=== PATIENT | male | born 1945 | race Caucasian/White ===

== ENCOUNTER → 2016-11-14 | Outpatient (CLI) | payer MEDICARE ==
--- NOTE | 2016-11-14 09:30 | CT ---
EXAMINATION TYPE: CT abdomen pelvis wo/w con DATE OF EXAM: 11/14/2016 9:15 AM COMPARISON: NONE HISTORY: Patient has no complaints at time of study. Follow up study for abnormal colonoscopy. CT DLP: 2081 mGycm, Automated Exposure Control for Dose Reduction was Utilized. CONTRAST: CT scan of the abdomen and pelvis is performed with oral and without and with IV Contrast, patient in jected with 80 mL of Visipaque 320. FINDINGS: LUNG BASES: There is mild cardiomegaly. There is pericardial calcification anteriorly and inferiorly. Consider product of pericarditis. There is small left pleural effusion or fluid collection. There is left basilar linear scarring or atelectasis. There is more focal triangular shaped atelectasis or Li mited consolidation in the left lung base. Right lung is clear. LIVER/GB: Dependent calcified stones are seen in gallbladder neck. PANCREAS: No significant abnormality is seen. SPLEEN: There is 1.3 cm splenule in the posterior splenic hilum ADRENALS: No significant abnormality is seen. KIDNEYS: There is exophytic 1.1 cm simple appearing cyst laterally mid pole level left kidney. There is mild perinephric fat stranding bilaterally which is nonspecific finding. There is symmetric cortic al medullary uptake and excretion from both kidneys without evidence of hydronephrosis bilaterally. BOWEL: Oral contrast reaches level of the proximal transverse colon. There is no suspicious small or large bowel dilatation. There is wondering cecum into the right upper quadrant with terminal ileum se en best on coronal image 25 series 9. Appendix is felt surgically absent with sutures from right late ral margin of cecum. Some prominence of the cecum is seen. There is virtually no right colon With hig h positioned cecum present. There is focal moderate concentric wall thickening in the proximal transv erse colon which likely correlates with level of patient's recent abnormal colonoscopy. Remainder of colon shows mild to moderate fecal retention without suspicious dilatation. PROSTATE/SEMINAL VESICLES: Some scattered pelvic phleboliths are present. Prostate gland is upper nj its of normal in size. LYMPH NODES: No greater than 1cm abdominal or pelvic lymph nodes are appreciated. OSSEOUS STRUCTURES: Osseous structures are somewhat demineralized. There is disc space narrowing L4-L 5 level. Multilevel spurring in the thoracic spine is noted. OTHER: Fairly severe calcified plaque of the aorta and branch vessels. IMPRESSION: Suspicious short segment wall thickening or apple core type lesion proximal transverse co shilpa likely corresponds to area of recent abnormal colonoscopy. No CT evidence for metastatic malignan cy.
== END | disposition home or self-care (01) ==
LOC: RADCTMAIN 06:40
PROVIDERS: ATTEND Internal Medicine Gastroenterology
DX: R19.00 Intra-abdominal and pelvic swelling, mass and lump, unspecified site (principal)
CPT/HCPCS: 82565; 84520; 74178; 36415; Q9967

== ENCOUNTER → 2016-11-29 | Outpatient (CLI) | payer MEDICARE ==
--- NOTE | 2016-11-29 08:39 | CT ---
EXAMINATION TYPE: CT chest w con DATE OF EXAM: 11/29/2016 8:30 AM COMPARISON: NONE HISTORY: Recent diagnosis of rectal CA CT DLP: 793 mGycm Automated exposure control for dose reduction was used. CONTRAST: CT scan of the chest is performed with IV Contrast, patient injected with 100 mL of Visipaque 320. FINDINGS: LUNGS: The lungs are grossly clear, there is no concerning parenchymal mass or nodule identified. The re is a loculated left-sided pleural effusion with AP dimension of 2.7 cm and craniocaudal measuremen t of 11.8 cm. Mild pleural-based calcification is noted. Left basilar linear scar atelectasis is iden tified. The right lung is clear. The tracheobronchial tree is patent. MEDIASTINUM: There are no greater than 1 cm hilar or mediastinal lymph nodes. No pericardial effusi on is seen. Thoracic aorta is of normal caliber. The heart is not enlarged. UPPER ABDOMEN: There is evidence of cholelithiasis. OTHER: No additional significant abnormality is seen. IMPRESSION: 1. Loculated left-sided pleural effusion with left basilar atelectasis or parenchymal scar. 2. Cholelithiasis.
== END | disposition home or self-care (01) ==
LOC: RADCTMAIN 07:37
PROVIDERS: ATTEND Radiology Radiation Oncology
DX: J90 Pleural effusion, not elsewhere classified (principal); C20 Malignant neoplasm of rectum
CPT/HCPCS: 82565; 84520; 71260; 36415; Q9967

== ENCOUNTER 2017-01-07 23:00 | Inpatient (IN) | payer MEDICARE ==
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
[2017-01-08] MEDS ORDERED: HYDROmorphone 1 MG/ML 1 ML SYRINGE IVP STA (00:14)
[2017-01-08] MEDS ORDERED: DILTIAZEM 125 MG in SODIUM CHLORIDE 0.9% 100 ML IV ONE (00:26)
[2017-01-08 01:00] LABS: Anisocytosis Slight; Basophils % (A) 0 %; CH 33.3; CHCM 35.5; Eosinophils # (A) 0.1 k/uL (0-0.7); Eosinophils % (A) 3 %; HCT 38.9 % (39.0-53.0); HGB 13.7 gm/dL (13.0-17.5); Luc # (Auto) 0.09; Luc % (Auto) 2; Lymphocytes # (A) 0.2 k/uL (1.0-4.8); Lymphocytes % (A) 4 %; MCH 33.1 pg (25.0-35.0); MCHC 35.2 g/dL (31.0-37.0); Macrocytosis Slight; Mean Platelet Volume 8.1; Monocytes # (A) 0.5 k/uL (0-1.0); Monocytes % (A) 11 %; Neutrophils # (A) 3.4 k/uL (1.3-7.7); Neutrophils % (A) 80 %; RBC 4.14 m/uL (4.30-5.90); RDW 17.3 % (11.5-15.5); WBC 4.2 k/uL (3.8-10.6); WBC (Perox) 4.21
[2017-01-08 01:08] LABS: Total Protein 5.9 g/dL (6.3-8.2)
--- NOTE | 2017-01-08 01:28 | XR ---
EXAM: XR Chest, 2 Views CLINICAL HISTORY: Reason: dysrhythmia Hx. of afib, DM, Htn. Pt. c/o nausea and vomiting. dehydration. TECHNIQUE: Frontal and lateral views of the chest. COMPARISON: 11/29/[address] FINDINGS: Lungs: Unremarkable. No consolidation. Pleural space: Opacity over the left mid to lower hemithorax. Correlates with loculated pleural effusion seen on the prior chest CT. Left apical opacity also stable. No pneumothorax. Heart: Unremarkable. No cardiomegaly. Mediastinum: Unremarkable. Bones/joints: Unremarkable. IMPRESSION: No significant interval change of left-sided opacity correlating with loculated left pleural effusion and chronic changes. No new opacity.
[2017-01-08 01:32] LABS: Calcium 8.1 mg/dL (8.4-10.2); Magnesium 1.9 mg/dL (1.6-2.3); Potassium 4.8 mmol/L (3.5-5.1); Total Bilirubin 1.1 mg/dL (0.2-1.3)
[2017-01-08 01:36] LABS: Troponin I 0.014 ng/mL (0.000-0.034)
[2017-01-08 01:42] LABS: Creatine Kinase MB 3.3 ng/mL (0.0-2.4)
[2017-01-08 02:18] LABS: INR 4.9 (<1.1); Prothrombin Time 48.9 sec (9.0-12.0)
[2017-01-08 02:20] LABS: Partial Thromboplastin Time 80.1 sec (22.0-30.0)
[2017-01-08] MEDS ORDERED: NITROGLYCERIN SL TABS 0.4 MG TAB SUBLINGUAL PRN (02:41)
[2017-01-08] MEDS ORDERED: Acetaminophen-Codeine 300-30mg TAB PO PRN (04:17)
[2017-01-08 04:59] LABS: Glucose,Whole Blood 313 mg/dL (75-99)
[2017-01-08 06:33] LABS: Glucose,Whole Blood 348 mg/dL (75-99)
[2017-01-08 06:50] LABS: Troponin I 0.016 ng/mL (0.000-0.034)
[2017-01-08 07:07] LABS: Creatine Kinase MB 2.8 ng/mL (0.0-2.4)
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
--- NOTE | 2017-01-08 08:51 | P.PN ---
Progress Note - Text Impression Atrial fibrillation with RVR Rectal cancer with bleeding on treatment right now, hemoglobin 13.7, prothrombin time elevated Past history of paroxysmal atrial fibrillation, Dr. Fajardo follows him for this Suggest Rate control without anticoagulation, stop aspirin Start diltiazem CD 120 mg by mouth daily and tomorrow IV diltiazem can be discontinued if his rates are controlled. If he becomes bradycardic stop IV diltiazem but continue oral diltiazem and continue telemetry monitoring The see full consultation separately
[2017-01-08] MEDS ORDERED: SODIUM CHLORIDE 0.9% 500 ML IV ONE (09:04)
[2017-01-08] MEDS ORDERED: INSULIN LISPRO (humaLOG) 300 UNIT/3 ML VIAL SQ ONE (09:05)
[2017-01-08] MEDS: INSULIN LISPRO (humaLOG) 300 UNIT/3 ML VIAL SQ SCH ×4 (09:25→21:32)
[2017-01-08 09:35] LABS: Anisocytosis Slight; CH 32.9; CHCM 33.9; HCT 35.5 % (39.0-53.0); HDW 2.45; MCH 32.9 pg (25.0-35.0); MCHC 33.8 g/dL (31.0-37.0); MCV 97.4 fL (80.0-100.0); Macrocytosis Slight; Mean Platelet Volume 7.9; RBC 3.64 m/uL (4.30-5.90); RDW 17.5 % (11.5-15.5); WBC 3.7 k/uL (3.8-10.6)
[2017-01-08] MEDS: HYDROmorphone 1 MG/ML 1 ML SYRINGE IVP PRN ×2 (10:47→16:37)
[2017-01-08] MEDS: DILTIAZEM CD 120 MG CAP.ER.24H PO SCH (10:48)
[2017-01-08 11:39] LABS: Glucose,Whole Blood 418 mg/dL (75-99)
--- NOTE | 2017-01-08 11:42 | CONS ---
DATE OF CONSULTATION: Mr. Cotton is a 71 -year-old patient of Dr. Fajardo who presented with rectal and anal pain and bleeding. He did not have any chest discomfort, palpitations, dizziness, lightheadedness or shortness of breath. He was found to be in atrial fibrillation ( ). He has a history of known atrial fibrillation, paroxysmal in nature. His INR was also 4.9. REVIEW OF SYSTEMS: No fever, chills, or rigors. No cough or expectoration. No nausea or vomiting, diarrhea. No hematuria or dysuria. No strokes or seizures. Past medical history of paroxysmal atrial fibrillation, rectal cancer, diabetes. History of dyslipidemia, hypertension, osteoarthritis. SOCIAL HISTORY: Occasional smoker. Medication list was reviewed and is documented in the chart. Also includes: 1. Simvastatin. 2. Lexapro. 3. Digoxin. 4. Warfarin. ALLERGIES: No known drug allergies. On examination, his blood pressure 132/58 mmHg, heart rate is in the 80s and 90s, head and neck examination is normal. Heart sounds are irregular. LUNGS: Clear to auscultation. EXTREMITIES: Warm. No edema. He has an amputation of the left forearm. Labs were reviewed and are documented in the chart. IMPRESSION: 1. Atrial fibrillation with rapid ventricular response paroxysmal. 2. Rectal cancer. 3. Supratherapeutic INR. 4. Renal failure, acute on chronic. 5. Uncontrolled type 2 diabetes. 6. History of cerebrovascular accident. SUGGEST: Continue anticoagulation. Maintain INR between 2 and 3, rate control atrial fibrillation. Please see separate dictation for impression and plan.
[2017-01-08] MEDS: SODIUM CHLORIDE 0.9% 1,000 ML IV SCH ×2 (11:51→17:56)
[2017-01-08] MEDS ORDERED: INSULIN NPH 300 UNIT/3 ML VIAL SQ SCH (12:30)
[2017-01-08] MEDS: WITCH HAZEL 1 EACH MED..PAD TOPICAL SCH ×3 (12:31→21:11)
[2017-01-08 12:56] LABS: Digoxin 0.5 ng/mL
[2017-01-08 13:03] LABS: % Iron Saturation 14.3 % (20-50); Creatine Kinase 176 U/L (55-170)
[2017-01-08 13:17] LABS: Troponin I <0.012 ng/mL (0.000-0.034)
[2017-01-08] MEDS: DILTIAZEM 125 MG in SODIUM CHLORIDE 0.9% 100 ML IV SCH (14:11)
[2017-01-08 16:34] LABS: Glucose,Whole Blood 238 mg/dL (75-99)
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
[2017-01-08] MEDS: INSULIN GLARGINE 100 UNIT/ML 10 ML VIAL SQ SCH (21:09)
[2017-01-08] MEDS: HYDROcodone/APAP 7.5-325MG 1 EACH TAB PO PRN (21:09)
[2017-01-08] MEDS: ATORVASTATIN 20 MG TAB PO SCH (21:09)
[2017-01-08] MEDS: LIDOCAINE 2% GEL 30 ML TUBE TOPICAL PRN (21:11)
[2017-01-08 21:43] LABS: Glucose,Whole Blood 247 mg/dL (75-99)
[2017-01-09 02:08] LABS: Glucose,Whole Blood 192 mg/dL (75-99)
[2017-01-09] MEDS: HYDROmorphone 1 MG/ML 1 ML SYRINGE IVP PRN ×4 (02:16→23:10)
[2017-01-09] MEDS: SODIUM CHLORIDE 0.9% 1,000 ML IV SCH ×3 (02:17→21:33)
[2017-01-09 05:46] LABS: Glucose,Whole Blood 287 mg/dL (75-99)
[2017-01-09 06:18] LABS: Anisocytosis Slight; CH 32.5; HCT 37.3 % (39.0-53.0); HDW 2.31; HGB 12.2 gm/dL (13.0-17.5); MCH 32.2 pg (25.0-35.0); MCHC 32.6 g/dL (31.0-37.0); MCV 98.7 fL (80.0-100.0); Macrocytosis Slight; Mean Platelet Volume 7.3; RBC 3.78 m/uL (4.30-5.90); RDW 17.4 % (11.5-15.5); WBC 3.8 k/uL (3.8-10.6)
[2017-01-09 06:22] LABS: Blood Urea Nitrogen 36 mg/dL (9-20); Calcium 8.3 mg/dL (8.4-10.2); Carbon Dioxide 20 mmol/L (22-30); Cholesterol 93 mg/dL (<200); Glucose 244 mg/dL (74-99); HDL Cholesterol 46 mg/dL (40-60); Non-African American GFR(MDRD) 55 (>60 ml/min/1.73 sqM); Potassium 4.9 mmol/L (3.5-5.1); Sodium 135 mmol/L (137-145); Triglycerides 87 mg/dL (<150)
[2017-01-09] MEDS: INSULIN LISPRO (humaLOG) 300 UNIT/3 ML VIAL SQ SCH ×4 (06:35→21:34)
[2017-01-09 06:39] LABS: Anion Gap 10 mmol/L; Chloride 105 mmol/L (98-107)
[2017-01-09 07:23] LABS: INR >10.0 (<1.1); Prothrombin Time >130.0 sec (9.0-12.0)
[2017-01-09] MEDS ORDERED: PHYTONADIONE ORAL 5 MG/5 ML ORAL.SYRG PO STA (07:45)
[2017-01-09] MEDS: DIGOXIN 125 MCG TAB PO SCH (08:52)
[2017-01-09] MEDS: WITCH HAZEL 1 EACH MED..PAD TOPICAL SCH ×4 (08:52→21:34)
[2017-01-09] MEDS: DILTIAZEM CD 120 MG CAP.ER.24H PO SCH (08:52)
[2017-01-09] MEDS ORDERED: ASPIRIN 325 MG TAB PO SCH (09:00)
[2017-01-09] MEDS: HYDROcodone/APAP 7.5-325MG 1 EACH TAB PO PRN ×2 (11:31→16:03)
[2017-01-09 11:54] LABS: Glucose,Whole Blood 288 mg/dL (75-99)
[2017-01-09] MEDS: DILTIAZEM 125 MG in SODIUM CHLORIDE 0.9% 100 ML IV SCH (11:58)
--- NOTE | 2017-01-09 12:48 | P.PN ---
Subjective Principal diagnosis: A. fib with RVR, rectal bleed, rectal cancer post radiation, CVA, diabetes, hypertension, hyperlipidemia, osteoarthritis 71-year-old male one of Dr. Kris John's patient with past medical history of rectal cancer A. 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 Patient has been treated with radiation oncology for rectal cancer with radiation therapy had 3 sessions so far the last one was a day early. Patient also see oncology for his colorectal's cancer and has been well managed with them. No recent history of bleeding. Surprisingly had mild coagulopathy on admission with INR of 4.9 has been on warfarin for A. fib with RVR. Also pulse rate was quite bit high started on Cardizem drip and had to stop it shortly patient was seen cardiology and medication were converted to oral meds. 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 Patient was seen cardiology and oncology at this point and still well managed and controlled medically. Objective - Vital Signs Vital signs: Vital Signs Temp 98 F 01/09/17 08:00 Pulse 110 H 01/09/17 11:51 Resp 18 01/09/17 11:51 BP 120/88 01/09/17 11:51 Pulse Ox 98 01/09/17 11:51 Intake & Output 01/08/17 01/09/17 01/09/17 18:59 06:59 18:59 Intake Total 1620 590 180 Output Total 600 Balance 1020 590 180 Weight 97.2 kg Intake: IV 540 390 Diltiazem 125 mg In 40 15 Sodium Chloride 0.9% 100 ml @ 5 MG/HR 5 mls/hr IV .Q24H [facility] Rx#:[id number] Sodium Chloride 0.9% 1, 375 000 ml @ 125 mls/hr IV . Q8H [facility] Rx#:[id number] Sodium Chloride 0.9% 500 500 ml @ 999 mls/hr IV .Q31M [facility] Rx#:[id number] Intake, IV Titration 600 Amount Sodium Chloride 0.9% 1, 600 000 ml @ 125 mls/hr IV . Q8H [facility] Rx#:[id number] Oral 480 200 180 Output: Urine 600 Other: Voiding Method Toilet Toilet Toilet # Voids 4 2 # Bowel Movements 1 3 1 - Constitutional General appearance: Present: cooperative, no acute distress. Absent: average body habitus, disheveled, mild distress, morbidly obese, obese, severe distress , thin - EENT Eyes: Present: normal appearance. Absent: abnormal pupil, anicteric sclerae, disc margins sharp, edentulous, EOMI, PERRLA, fundus normal, photophobia, dentition normal, poor dentition, ptosis, scleral icterus ENT: Present: normal oropharynx. Absent: hard of hearing, hearing grossly normal, NA/AT, other, pharyngeal erythema, thrush, tonsillar exudates, tonsillar swelling Ears: bilateral: normal - Neck Neck: Present: normal ROM Carotids: bilateral: upstroke normal Thyroid: bilateral: normal size - Respiratory Respiratory: bilateral: CTA, diminished - Cardiovascular Rhythm: regular Heart sounds: normal: S1, S2 Abnormal Heart Sounds: Present: systolic murmur - Gastrointestinal General gastrointestinal: Present: decreased bowel sounds, normal bowel sounds, soft. 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 Integumentary: Present: pale. Absent: calor, cellulitis, cyanotic, decreased turgor, flushed, jaundiced, normal, normal turgor, rash, ulcer - Neurologic Neurologic: Present: CNII-XII intact. Absent: focal deficits - Musculoskeletal Musculoskeletal: Present: gait normal, generalized weakness, strength equal bilaterally. Absent: right sided weakness, left sided weakness - Psychiatric Psychiatric: Present: A&O x's 3, appropriate affect. Absent: intact judgment & insight - Labs CBC & Chem 7: 01/09/17 05:32 01/09/17 05:32 Labs: Abnormal Lab Results - Last 24 Hours (Table) 01/08/17 01/08/17 01/08/17 Range/Units 11:58 11:58 16:30 RBC (4.30-5.90) m/uL Hgb (13.0-17.5) gm/dL Hct (39.0-53.0) % RDW (11.5-15.5) % PT (9.0-12.0) sec INR (<1.1) Sodium (137-145) mmol/L Carbon Dioxide (22-30) mmol/L BUN (9-20) mg/dL Creatinine (0.66-1.25) mg/dL Glucose (74-99) mg/dL POC Glucose (mg/dL) 238 H (75-99) mg/dL Calcium (8.4-10.2) mg/dL Iron 33 L (49-181) ug/dL TIBC 231 L (261-462) ug/dL % Saturation 14.3 L (20-50) % Total Creatine Kinase 176 H (55-170) U/L CK-MB (CK-2) 3.0 H* (0.0-2.4) ng/mL 01/08/17 01/09/17 01/09/17 Range/Units 21:31 02:07 05:32 RBC (4.30-5.90) m/uL Hgb (13.0-17.5) gm/dL Hct (39.0-53.0) % RDW (11.5-15.5) % PT (9.0-12.0) sec INR (<1.1) Sodium 135 L (137-145) mmol/L Carbon Dioxide 20 L (22-30) mmol/L BUN 36 H (9-20) mg/dL Creatinine 1.30 H (0.66-1.25) mg/dL Glucose 244 H (74-99) mg/dL POC Glucose (mg/dL) 247 H 192 H (75-99) mg/dL Calcium 8.3 L (8.4-10.2) mg/dL Iron (49-181) ug/dL TIBC (261-462) ug/dL % Saturation (20-50) % Total Creatine Kinase (55-170) U/L CK-MB (CK-2) (0.0-2.4) ng/mL 01/09/17 01/09/17 01/09/17 Range/Units 05:32 05:32 05:45 RBC 3.78 L (4.30-5.90) m/uL Hgb 12.2 L (13.0-17.5) gm/dL Hct 37.3 L (39.0-53.0) % RDW 17.4 H (11.5-15.5) % PT >130.0 H (9.0-12.0) sec INR >10.0 H* (<1.1) Sodium (137-145) mmol/L Carbon Dioxide (22-30) mmol/L BUN (9-20) mg/dL Creatinine (0.66-1.25) mg/dL Glucose (74-99) mg/dL POC Glucose (mg/dL) 287 H (75-99) mg/dL Calcium (8.4-10.2) mg/dL Iron (49-181) ug/dL TIBC (261-462) ug/dL % Saturation (20-50) % Total Creatine Kinase (55-170) U/L CK-MB (CK-2) (0.0-2.4) ng/mL 01/09/17 Range/Units 11:53 RBC (4.30-5.90) m/uL Hgb (13.0-17.5) gm/dL Hct (39.0-53.0) % RDW (11.5-15.5) % PT (9.0-12.0) sec INR (<1.1) Sodium (137-145) mmol/L Carbon Dioxide (22-30) mmol/L BUN (9-20) mg/dL Creatinine (0.66-1.25) mg/dL Glucose (74-99) mg/dL POC Glucose (mg/dL) 288 H (75-99) mg/dL Calcium (8.4-10.2) mg/dL Iron (49-181) ug/dL TIBC (261-462) ug/dL % Saturation (20-50) % Total Creatine Kinase (55-170) U/L CK-MB (CK-2) (0.0-2.4) ng/mL Microbiology - Last 24 Hours (Table) 01/08/17 11:45 Stool Culture - Preliminary Stool Assessment and Plan Plan: 1 rectal bleed: From rectal carcinoma stage II with radiation and this is most likely not episode of radiation proctitis, continue hydrocortisone cream and consult general surgery also might need to consult GI. 2 acute blood loss anemia: Hemoglobin has dropped only 1 g so far no need for blood transfusion at this point. 3 coagulopathy: His INR is up to 10.0 we will do vitamin K today continue to watch for any further bleed PT/INR be done daily. 4 A. fib with RVR: His off Cardizem drip seeing cardiology is on oral digoxin 125 g daily along with Cardizem 120 mg daily with pulse rate has been well controlled. 5 type 2 diabetes on insulin: Patient has been on Lantus 20 units daily along with Accu-Chek with sliding scales coverage. 6 history of CVA: Patient had very slight residual only at this point still on secondary prevention. 7 hyperlipidemia: Has been on atorvastatin 20 mg daily with good result so far. GI prophylaxis: Patient will be on pantoprazole IV. DVT prophylaxis: Venodyne boots and knee-high YAZAN hose at this point patient still on anticoagulation. CODE STATUS: Full code.
--- NOTE | 2017-01-09 13:18 | CONS ---
DATE OF CONSULTATION: 01/09/2017 REASON FOR CONSULTATION: Acute lower gastrointestinal bleed. HISTORY OF PRESENT ILLNESS: The patient is a 71-year-old pleasant, white male who was admitted the hospital with rectal bleeding. The patient was just diagnosed with rectal adenocarcinoma in November 15, 2016 and subsequently undergoing chemoradiation therapy, neoadjuvant chemoradiation therapy. He finished 90 days of radiation therapy and he is on second cycle of chemotherapy. Within one week of starting the radiation therapy, he started having rectal bleeding with bright red blood per rectum. Initially it was about 2 to 3 times a day but lately for the last one week it has been about 8 to 10 times a day. It is bright red blood in nature with small clots and usually he has several bowel movements with it, complains of some rectal soreness. Denies any abdominal pain. Reports no nausea or vomiting. His initial hemoglobin at the time of admission to the hospital was 14 and not it is down to 12.6 g/dL. He also history of atrial fibrillation on Coumadin and INR at the time of admission to the hospital was 4.6. The Coumadin has been on hold. This morning he had about 2 episodes of bright red blood per rectum. He denies any fever, chills, night sweats. On a regular diet, tolerating well. PAST MEDICAL HISTORY: 1. Significant for atrial fibrillation on Coumadin presently on hold. 2. Rectal cancer diagnosed in October 2016 stage II undergoing neoadjuvant chemoradiation therapy. 3. History of CVA and transient ischemic attack in the past. 4. Diabetes mellitus. 5. Hypertension. 6. Hyperlipidemia. 7. Degenerative joint disease. PAST SURGICAL HISTORY: ORIF of the left femur, recent colonoscopy in October 2016. Medications at home include: 1. Coumadin. 2. Zocor. 3. Prinivil. 4. Lantus. 5. NovoLog. 6. Lozol. 7. Lomotil. 8. Digitek. 9. Voltaren. ALLERGIES: None. SOCIAL HISTORY: No smoking or alcohol use. FAMILY HISTORY: Unremarkable. REVIEW OF SYSTEMS: CARDIOPULMONARY: No chest pain or shortness of breath. GENITOURINARY: No dysuria or hematuria. MUSCULOSKELETAL: Unremarkable. SKIN: Unremarkable. ENDOCRINE: Unremarkable. PSYCHIATRIC: Unremarkable. NEUROLOGY: Unremarkable. ENT/vision: Unremarkable. CONSTITUTIONAL: No recent weight loss. No fever, chills, night sweats. On physical examination, he appears comfortable. In no apparent distress. Vitals signs are stable. Blood pressure is blood pressure is 135/72, pulse 89, temperature 98.3. HEENT: Unremarkable. Conjunctivae pink. Sclerae anicteric. Oral cavity, no lesions. NECK: No JVD or lymph node enlargement. Chest was clear to auscultation. HEART: Regular rate and rhythm. ABDOMEN: Soft. It was nontender, nondistended. Liver and spleen are not palpable. Bowel sounds are positive. No organomegaly. EXTREMITIES: No pedal edema. SKIN: No rashes. NEURO: Alert and oriented x3. No focal deficits. Labs from today, hemoglobin is 12.2, yesterday it was 13.7, WBC 3.8, platelets 172. PT was 48.9 with INR of 4.9, repeat PT from this morning is still pending at the time of this dictation. Basic metabolic panel is within normal limits. IMPRESSION: 1. Rectal bleeding for the last 3 weeks duration. Lately has been progressively getting worse. He was diagnosed with rectal cancer 6 weeks ago and presently undergoing neoadjuvant chemoradiation therapy. The bleeding has started a week after he started radiation therapy and progressively getting worse lately most likely related to the rectal mass as well as a component of radiation-induced proctitis. 2. Coagulopathy related to Coumadin with elevated INR, presently on hold. RECOMMENDATIONS: 1. At this time, I agree to hold the Coumadin and if he continues to have persistent bleeding we can give him 2 units of fresh frozen plasma if the INR is still elevated. 2. At this time, no plans for doing any endoscopic intervention, since the bleeding subsides once the coagulopathy resolved. 3. CBC every 12 hours and if needed transfuse with blood products. 4. We will follow the patient closely during his hospital stay. Thank you for this consultation.
[2017-01-09] MEDS: PANTOPRAZOLE 40 MG/10 ML VIAL IVP SCH (15:15)
[2017-01-09 16:43] LABS: Glucose,Whole Blood 237 mg/dL (75-99)
[2017-01-09 20:26] LABS: Glucose,Whole Blood 264 mg/dL (75-99)
[2017-01-09] MEDS: INSULIN GLARGINE 100 UNIT/ML 10 ML VIAL SQ SCH (21:33)
[2017-01-09] MEDS: ATORVASTATIN 20 MG TAB PO SCH (21:33)
[2017-01-10] MEDS: HYDROcodone/APAP 7.5-325MG 1 EACH TAB PO PRN ×2 (03:04→08:32)
[2017-01-10 03:14] LABS: Glucose,Whole Blood 193 mg/dL (75-99)
[2017-01-10 06:25] LABS: Glucose,Whole Blood 192 mg/dL (75-99)
[2017-01-10 06:27] LABS: INR 3.2 (<1.1); Prothrombin Time 31.3 sec (9.0-12.0)
[2017-01-10] MEDS: SODIUM CHLORIDE 0.9% 1,000 ML IV SCH ×3 (06:34→18:01)
[2017-01-10] MEDS: INSULIN LISPRO (humaLOG) 300 UNIT/3 ML VIAL SQ SCH ×4 (06:35→20:41)
[2017-01-10 06:42] LABS: Anisocytosis Slight; Aty Lym Flag Slight; CH 32.7; CHCM 33.8; HCT 33.6 % (39.0-53.0); HDW 2.35; HGB 11.2 gm/dL (13.0-17.5); MCH 32.4 pg (25.0-35.0); MCHC 33.3 g/dL (31.0-37.0); MCV 97.3 fL (80.0-100.0); Macrocytosis Slight; Mean Platelet Volume 7.6; RBC 3.45 m/uL (4.30-5.90); RDW 17.6 % (11.5-15.5); WBC 3.5 k/uL (3.8-10.6); WBC (Perox) 3.36
[2017-01-10 06:44] LABS: ALT 31 U/L (21-72); AST 31 U/L (17-59); Alkaline Phosphatase 47 U/L (38-126); Anion Gap 4 mmol/L; Blood Urea Nitrogen 25 mg/dL (9-20); Calcium 7.8 mg/dL (8.4-10.2); Carbon Dioxide 25 mmol/L (22-30); Chloride 105 mmol/L (98-107); Glucose 187 mg/dL (74-99); Non-African American GFR(MDRD) >60 (>60 ml/min/1.73 sqM); Potassium 4.3 mmol/L (3.5-5.1); Sodium 134 mmol/L (137-145); Total Bilirubin 1.7 mg/dL (0.2-1.3)
[2017-01-10] MEDS: HYDROmorphone 1 MG/ML 1 ML SYRINGE IVP PRN ×6 (06:55→23:11)
[2017-01-10] MEDS: DIPHENOX-ATROP 2.5-0.025 MG 1 EACH TAB PO PRN ×2 (08:32→15:47)
[2017-01-10] MEDS: DIGOXIN 125 MCG TAB PO SCH (08:33)
[2017-01-10] MEDS: DILTIAZEM CD 120 MG CAP.ER.24H PO SCH (08:33)
[2017-01-10] MEDS: PANTOPRAZOLE 40 MG/10 ML VIAL IVP SCH (08:33)
[2017-01-10] MEDS: WITCH HAZEL 1 EACH MED..PAD TOPICAL SCH ×4 (08:36→23:10)
[2017-01-10 10:16] LABS: Add Differential Manual Differential
[2017-01-10 10:22] LABS: Nucleated Red Blood Cells 0 /100 WBC (0-0); Total Cells Counted 100
[2017-01-10 10:23] LABS: Manual Review Performed; RBC Morphology Normal
--- NOTE | 2017-01-10 10:39 | PN ---
DATE OF SERVICE: 01/10/2017 Requesting physician: Dr. Peter John. Patient is a 71-year-old pleasant white male recently diagnosed with rectal adenocarcinoma stage II presently undergoing chemo and radiation therapy. He was admitted to the hospital with severe rectal bleeding for the last 3 weeks' duration, a week since the radiation therapy has began. He also A. fib, on Coumadin, which is currently on hold. INR is down to 3.9 today. He continues to have multiple episodes of rectal bleeding. He had about 10 episodes all through yesterday and through the night and about 4 episodes this morning. He believes that the bleeding is lesser in quantity. He still has severe rectal pain and rectal discomfort at the site of skin excoriation. No nausea or vomiting. No abdominal pain. On physical examination, he appears comfortable in no apparent distress. Vital signs stable. Blood pressure is 130/80, pulse rate 82 per minute and afebrile. HEENT: Unremarkable, conjunctivae pink, sclerae anicteric. Oral cavity, no lesions. NECK: No JVD or lymph node enlargement. CHEST: Clear to auscultation. HEART: Regular rate and rhythm. ABDOMEN: Soft. Bowel sounds are positive. No organomegaly. EXTREMITIES: No pedal edema. SKIN: No rashes. NEURO: Alert and oriented x3. No focal deficits. LABS: WBC 3.5, hemoglobin 11.2, platelets are normal. Basic metabolic panel is within normal limits. IMPRESSION: 1. Severe rectal bleeding, which is a combination of radiation proctitis as well as rectal mass aggravated with coagulopathy secondary to Coumadin for atrial fibrillation, which is currently on hold. He dropped his hemoglobin from 13 to 11.2 g/dL and continues to have significant bleeding, but no hemodynamic compromise. 2. History of atrial fibrillation on Coumadin, which is currently on hold. RECOMMENDATIONS: 1. No plans for any endoscopic intervention. 2. Continue to hold the Coumadin and hopefully the bleeding will spontaneously resolve. 3. Serial CBCs and transfuse if needed. 4. We will continue to follow the patient closely during his hospital stay. Thank you for this consultation.
[2017-01-10] MEDS ORDERED: HYDROmorphone 1 MG/ML 1 ML SYRINGE IM PRN (11:11)
--- NOTE | 2017-01-10 11:20 | ECHOF ---
Referral Reason:afib MEASUREMENTS -------- HEIGHT: 188.0 cm WEIGHT: 97.5 kg BP: 138/58 RVIDd: 2.9 cm (< 3.3) IVSd: 1.2 cm (0.6 - 1.1) LVIDd: 4.7 cm (3.9 - 5.3) LVPWd: 1.0 cm (0.6 - 1.1) IVSs: 1.6 cm LVIDs: 3.2 cm LVPWs: 1.5 cm LA Diam: 3.4 cm (2.7 - 3.8) LAESV Index (A-L): 18.60 ml/m Ao Diam: 2.9 cm (2.0 - 3.7) AV Cusp: 2.3 cm (1.5 - 2.6) MV EXCURSION: 19.132 mm (> 18.000) MV EF SLOPE: 161 mm/s (70 - 150) EPSS: 1.2 cm FINDINGS -------- Atrial fibrillation. This was a technically adequate study. The left ventricular size is normal. There is borderline concentric left ventricular hypertrophy. Overall left ventricular systolic function is low-normal with, an EF between 50 - 55 %. The right ventricle is normal in size and function. Normal LA size by volume 22+/-6 ml/m2. The right atrium is normal in size. There is mild aortic valve sclerosis. There is trace mitral regurgitation. The tricuspid valve appears structurally normal. Trace/mild (physiologic) pulmonic regurgitation. The aortic root size is normal. Normal inferior vena cava with normal inspiratory collapse consistent with estimated right atrial pressure of 5 mmHg. The pericardium is normal. CONCLUSIONS -------- 1. Atrial fibrillation. 2. There is trace mitral regurgitation. 3. The tricuspid valve appears structurally normal. 4. Trace/mild (physiologic) pulmonic regurgitation. 5. The aortic root size is normal. 6. Normal inferior vena cava with normal inspiratory collapse consistent with estimated right atrial pressure of 5 mmHg. 7. The pericardium is normal. 8. This was a technically adequate study. 9. The left ventricular size is normal. 10. There is borderline concentric left ventricular hypertrophy. 11. Overall left ventricular systolic function is low-normal with, an EF between 50 - 55 %. 12. The right ventricle is normal in size and function. 13. Normal LA size by volume 22+/-6 ml/m2. 14. The right atrium is normal in size. 15. There is mild aortic valve sclerosis. FORENSIC TOXICOLOGIST: Abi Salazar RDCS
[2017-01-10 11:53] LABS: Glucose,Whole Blood 297 mg/dL (75-99)
[2017-01-10 11:57] VITALS: BMI 27.6
--- NOTE | 2017-01-10 12:15 | P.PN ---
Subjective Principal diagnosis: GI bleed and atrial fibrillation with rapid ventricular response This is a 71-year-old gentleman with history of rectal cancer, A. fib , prior CVA, hypertension, diabetes, hyperlipidemia, who initially presented to the hospital with lower GI bleeding. Patient has been treated with radiation oncology for rectal cancer with radiation. He also was noted to have mild coagulopathy on admission with an INR of 4.9, he was on Coumadin for his atrial fibrillation. Cardiology consultation was requested because of atrial fibrillation with a rapid ventricular response. He was initiated on a Cardizem CD by Dr. Madden, dose increased to 180 mg daily. White blood cell count today 3.5, hemoglobin 11.2, INR 3.2. Potassium 4.3, BUN 25, creatinine 1.1. Blood pressure this morning 138/60 with a heart rate of 90-104. Objective - Vital Signs Vital signs: Vital Signs Temp 97.1 F L 01/10/17 08:00 Pulse 103 H 01/10/17 08:00 Resp 19 01/10/17 08:00 BP 138/67 01/10/17 08:00 Pulse Ox 95 01/10/17 08:00 Intake & Output 01/09/17 01/10/17 01/10/17 18:59 06:59 18:59 Intake Total 1280 1125 320 Output Total 600 Balance 680 1125 320 Weight 97.7 kg 97.7 kg Intake: IV 1000 1125 Sodium Chloride 0.9% 1, 1000 1125 000 ml @ 125 mls/hr IV . Q8H [facility] Rx#:[id number] Oral 280 320 Output: Urine 600 Other: Voiding Method Toilet Toilet Toilet # Voids 2 1 # Bowel Movements 1 4 1 - Exam PHYSICAL EXAMINATION: HEENT: Head is atraumatic, normocephalic. Pupils equal, round. Neck is supple. There is no elevated jugular venous pressure. HEART EXAMINATION:Heart S1 and S2 irregularly irregular systolic murmur is heard. CHEST EXAMINATION: Lungs are clear with mild diminished air entry to posterior bases. ABDOMEN: Soft, nontender. Bowel sounds are heard. No organomegaly noted. EXTREMITIES: 2+ peripheral pulses with no evidence of peripheral edema and no calf tenderness noted. NEUROLOGIC patient is awake, alert and oriented -3. . - Labs CBC & Chem 7: 01/10/17 05:58 01/10/17 05:58 Labs: Abnormal Lab Results - Last 24 Hours (Table) 01/09/17 01/09/17 01/10/17 Range/Units 16:42 20:24 02:52 WBC (3.8-10.6) k/uL RBC (4.30-5.90) m/uL Hgb (13.0-17.5) gm/dL Hct (39.0-53.0) % RDW (11.5-15.5) % Lymphocytes # (Manual) (1.0-4.8) k/uL PT (9.0-12.0) sec Sodium (137-145) mmol/L BUN (9-20) mg/dL Glucose (74-99) mg/dL POC Glucose (mg/dL) 237 H 264 H 193 H (75-99) mg/dL Calcium (8.4-10.2) mg/dL Total Bilirubin (0.2-1.3) mg/dL Total Protein (6.3-8.2) g/dL Albumin (3.5-5.0) g/dL 01/10/17 01/10/17 01/10/17 Range/Units 05:58 05:58 05:58 WBC 3.5 L (3.8-10.6) k/uL RBC 3.45 L (4.30-5.90) m/uL Hgb 11.2 L (13.0-17.5) gm/dL Hct 33.6 L (39.0-53.0) % RDW 17.6 H (11.5-15.5) % Lymphocytes # (Manual) 0.1 L (1.0-4.8) k/uL PT 31.3 H (9.0-12.0) sec Sodium 134 L (137-145) mmol/L BUN 25 H (9-20) mg/dL Glucose 187 H (74-99) mg/dL POC Glucose (mg/dL) (75-99) mg/dL Calcium 7.8 L (8.4-10.2) mg/dL Total Bilirubin 1.7 H (0.2-1.3) mg/dL Total Protein 5.0 L (6.3-8.2) g/dL Albumin 2.5 L (3.5-5.0) g/dL 01/10/17 01/10/17 Range/Units 06:22 11:48 WBC (3.8-10.6) k/uL RBC (4.30-5.90) m/uL Hgb (13.0-17.5) gm/dL Hct (39.0-53.0) % RDW (11.5-15.5) % Lymphocytes # (Manual) (1.0-4.8) k/uL PT (9.0-12.0) sec Sodium (137-145) mmol/L BUN (9-20) mg/dL Glucose (74-99) mg/dL POC Glucose (mg/dL) 192 H 297 H (75-99) mg/dL Calcium (8.4-10.2) mg/dL Total Bilirubin (0.2-1.3) mg/dL Total Protein (6.3-8.2) g/dL Albumin (3.5-5.0) g/dL Assessment and Plan (1) Rectal bleed Status: Acute (2) Rectal carcinoma Status: Acute (3) Acute blood loss anemia Status: Acute (4) Coagulopathy Status: Acute (5) Chronic a-fib Status: Acute (6) Diabetes Status: Acute (7) History of CVA (cerebrovascular accident) Status: Acute (8) Hyperlipemia Status: Acute Plan: From cardiology's perspective, we'll recommend to continue the patient on Cardizem 180 mg by mouth daily along with Coumadin. Once he is discharged home from the hospital follow-up appointment will be made in the office. DNP note has been reviewed, I agree with a documented findings and plan of care. Patient was seen and examined.
[2017-01-10] MEDS: HYDROCORTISONE SUPPOSITORY 25 MG SUPP RECTAL SCH ×2 (13:05→20:50)
--- NOTE | 2017-01-10 14:28 | P.PN ---
Subjective 71-year-old male one of Dr. Kris John's patient with past medical history of rectal cancer A. 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 Patient has been treated with radiation oncology for rectal cancer with radiation therapy had 3 sessions so far the last one was a day early. Patient also see oncology for his colorectal's cancer and has been well managed with them. No recent history of bleeding. Surprisingly had mild coagulopathy on admission with INR of 4.9 has been on warfarin for A. fib with RVR. Also pulse rate was quite bit high started on Cardizem drip and had to stop it shortly patient was seen cardiology and medication were converted to oral meds. His INR is up to 10 today hemoglobin dropped down 1 g total is bleeding and irritation continue but much driver. Patient was seen cardiology and oncology at this point and still well managed and controlled medically. 01/10: Today, INR is 3.2, hemoglobin is 11.2. BUN 25 and creatinine 1.14. Echocardiogram reveals EF 50-55%, mild aortic valve sclerosis, borderline concentric left ventricular hypertrophy, trace mitral regurgitation. Cardiology has recommended to continue Cardizem 180 mg with Coumadin. Gastroenterology does not plan for any endoscopy. Anusol twice daily has been ordered. Patient continues to have significant pain for which Dilaudid frequency and amount have been increased. Objective - Vital Signs Vital signs: Vital Signs Temp 99.2 F 01/10/17 03:50 Pulse 104 H 01/10/17 03:50 Resp 19 01/10/17 03:50 BP 138/58 01/10/17 03:50 Pulse Ox 97 01/10/17 03:50 Intake & Output 01/09/17 01/10/17 01/10/17 18:59 06:59 18:59 Intake Total 1280 1125 320 Output Total 600 Balance 680 1125 320 Weight 97.7 kg Intake: IV 1000 1125 Sodium Chloride 0.9% 1, 1000 1125 000 ml @ 125 mls/hr IV . Q8H COUNTS INCLUDE 234 BEDS AT THE [facility] Rx#:[id number] Oral 280 320 Output: Urine 600 Other: Voiding Method Toilet Toilet # Voids 2 # Bowel Movements 1 4 - Exam General appearance: Present: cooperative, no acute distress. Absent: average body habitus, disheveled, mild distress, morbidly obese, obese, severe distress , thin - EENT Eyes: Present: normal appearance. Absent: abnormal pupil, anicteric sclerae, disc margins sharp, edentulous, EOMI, PERRLA, fundus normal, photophobia, dentition normal, poor dentition, ptosis, scleral icterus ENT: Present: normal oropharynx. Absent: hard of hearing, hearing grossly normal, NA/AT, other, pharyngeal erythema, thrush, tonsillar exudates, tonsillar swelling Ears: bilateral: normal - Neck Neck: Present: normal ROM Carotids: bilateral: upstroke normal Thyroid: bilateral: normal size - Respiratory Respiratory: bilateral: CTA, diminished - Cardiovascular Rhythm: regular Heart sounds: normal: S1, S2 Abnormal Heart Sounds: Present: systolic murmur - Gastrointestinal General gastrointestinal: Present: decreased bowel sounds, normal bowel sounds, soft. 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 Integumentary: Present: pale. Absent: calor, cellulitis, cyanotic, decreased turgor, flushed, jaundiced, normal, normal turgor, rash, ulcer - Neurologic Neurologic: Present: CNII-XII intact. Absent: focal deficits - Musculoskeletal Musculoskeletal: Present: gait normal, generalized weakness, strength equal bilaterally. Absent: right sided weakness, left sided weakness - Psychiatric Psychiatric: Present: A&O x's 3, appropriate affect. Absent: intact judgment & insight - Labs CBC & Chem 7: 01/10/17 05:58 01/10/17 05:58 Labs: Abnormal Lab Results - Last 24 Hours (Table) 01/09/17 01/09/17 01/09/17 Range/Units 11:53 16:42 20:24 WBC (3.8-10.6) k/uL RBC (4.30-5.90) m/uL Hgb (13.0-17.5) gm/dL Hct (39.0-53.0) % RDW (11.5-15.5) % PT (9.0-12.0) sec Sodium (137-145) mmol/L BUN (9-20) mg/dL Glucose (74-99) mg/dL POC Glucose (mg/dL) 288 H 237 H 264 H (75-99) mg/dL Calcium (8.4-10.2) mg/dL Total Bilirubin (0.2-1.3) mg/dL Total Protein (6.3-8.2) g/dL Albumin (3.5-5.0) g/dL 01/10/17 01/10/17 01/10/17 Range/Units 02:52 05:58 05:58 WBC 3.5 L (3.8-10.6) k/uL RBC 3.45 L (4.30-5.90) m/uL Hgb 11.2 L (13.0-17.5) gm/dL Hct 33.6 L (39.0-53.0) % RDW 17.6 H (11.5-15.5) % PT 31.3 H (9.0-12.0) sec Sodium (137-145) mmol/L BUN (9-20) mg/dL Glucose (74-99) mg/dL POC Glucose (mg/dL) 193 H (75-99) mg/dL Calcium (8.4-10.2) mg/dL Total Bilirubin (0.2-1.3) mg/dL Total Protein (6.3-8.2) g/dL Albumin (3.5-5.0) g/dL 01/10/17 01/10/17 Range/Units 05:58 06:22 WBC (3.8-10.6) k/uL RBC (4.30-5.90) m/uL Hgb (13.0-17.5) gm/dL Hct (39.0-53.0) % RDW (11.5-15.5) % PT (9.0-12.0) sec Sodium 134 L (137-145) mmol/L BUN 25 H (9-20) mg/dL Glucose 187 H (74-99) mg/dL POC Glucose (mg/dL) 192 H (75-99) mg/dL Calcium 7.8 L (8.4-10.2) mg/dL Total Bilirubin 1.7 H (0.2-1.3) mg/dL Total Protein 5.0 L (6.3-8.2) g/dL Albumin 2.5 L (3.5-5.0) g/dL Assessment and Plan Plan: 1 acute rectal bleed: From rectal carcinoma stage II with radiation and this is most likely not episode of radiation proctitis, continue hydrocortisone cream and consult general surgery also might need to consult GI. 2 acute blood loss anemia: Hemoglobin has dropped only 1 g so far no need for blood transfusion at this point. 3 coagulopathy: His INR is up to 10.0 we will do vitamin K today continue to watch for any further bleed PT/INR be done daily. 4 A. fib with RVR with paroxysmal atrial fibrillation: Cardiology is following. Continue digoxin, Cardizem CD. 5 type 2 diabetes on insulin: Patient has been on Lantus 20 units daily along with Accu-Chek with sliding scales coverage. 6 history of CVA: Patient had very slight residual only at this point still on secondary prevention. 7 hyperlipidemia: Has been on atorvastatin 20 mg daily with good result so far. GI prophylaxis: Patient will be on pantoprazole IV. DVT prophylaxis: Venodyne boots and knee-high YAZAN hose at this point patient still on anticoagulation. CODE STATUS: Full code. Discharge plan: Return home most likely in the next 24 hours Impression and plan of care have been directed as dictated by the signing physician. Agnieszka Kelly nurse practitioner acting as scribe for signing physician.
--- NOTE | 2017-01-10 14:30 | P.PN ---
Subjective Principal diagnosis: The patient is a 71-year-old male with a history of a stage II (cT3, cN0, M0) adenocarcinoma of the rectum. The patient is currently undergoing concurrent chemoradiation, and has completed 19 of 25 planned treatments. The patient was admitted on January 07, 2017 with symptoms of bright red blood per rectum, diarrhea as well as atrial fibrillation with rapid ventricular response. The patient was found to have a supratherapeutic INR, with one value being greater than 10. The patient was subsequently treated with vitamin K, and his INR is improved significantly today. Unfortunately, the patient continues having a high frequency of stools per day. He notes having gotten up once an hour last night throughout the entire night. He reports that he is still having some bright red blood in the stool, but that this is improving. He reports that less than one third of his output is typically blood. He also complains of perirectal soreness. Objective - Vital Signs Vital signs: Vital Signs Temp 97.1 F L 01/10/17 08:00 Pulse 103 H 01/10/17 08:00 Resp 19 01/10/17 08:00 BP 138/67 01/10/17 08:00 Pulse Ox 95 01/10/17 08:00 Intake & Output 01/09/17 01/10/17 01/10/17 18:59 06:59 18:59 Intake Total 1280 1125 320 Output Total 600 Balance 680 1125 320 Weight 97.7 kg 97.7 kg Intake: IV 1000 1125 Sodium Chloride 0.9% 1, 1000 1125 000 ml @ 125 mls/hr IV . Q8H [facility] Rx#:[id number] Oral 280 320 Output: Urine 600 Other: Voiding Method Toilet Toilet Toilet # Voids 2 1 # Bowel Movements 1 4 1 - Constitutional General appearance: Present: average body habitus, no acute distress - EENT Eyes: Present: EOMI, PERRLA ENT: Present: hearing grossly normal - Neck Neck: Absent: lymphadenopathy - Respiratory Respiratory: bilateral: CTA - Cardiovascular Rhythm: irregularly irregular - Gastrointestinal Gastrointestinal Comment(s): Patient has a large amount of barrier cream on his anal region. Examination of the anal canal reveals an area of moist desquamation. - Neurologic Neurologic: Present: CNII-XII intact - Psychiatric Psychiatric: Present: A&O x's 3 - Labs CBC & Chem 7: 01/10/17 05:58 01/10/17 05:58 Labs: Abnormal Lab Results - Last 24 Hours (Table) 01/09/17 01/09/17 01/10/17 Range/Units 16:42 20:24 02:52 WBC (3.8-10.6) k/uL RBC (4.30-5.90) m/uL Hgb (13.0-17.5) gm/dL Hct (39.0-53.0) % RDW (11.5-15.5) % Lymphocytes # (Manual) (1.0-4.8) k/uL PT (9.0-12.0) sec Sodium (137-145) mmol/L BUN (9-20) mg/dL Glucose (74-99) mg/dL POC Glucose (mg/dL) 237 H 264 H 193 H (75-99) mg/dL Calcium (8.4-10.2) mg/dL Total Bilirubin (0.2-1.3) mg/dL Total Protein (6.3-8.2) g/dL Albumin (3.5-5.0) g/dL 01/10/17 01/10/17 01/10/17 Range/Units 05:58 05:58 05:58 WBC 3.5 L (3.8-10.6) k/uL RBC 3.45 L (4.30-5.90) m/uL Hgb 11.2 L (13.0-17.5) gm/dL Hct 33.6 L (39.0-53.0) % RDW 17.6 H (11.5-15.5) % Lymphocytes # (Manual) 0.1 L (1.0-4.8) k/uL PT 31.3 H (9.0-12.0) sec Sodium 134 L (137-145) mmol/L BUN 25 H (9-20) mg/dL Glucose 187 H (74-99) mg/dL POC Glucose (mg/dL) (75-99) mg/dL Calcium 7.8 L (8.4-10.2) mg/dL Total Bilirubin 1.7 H (0.2-1.3) mg/dL Total Protein 5.0 L (6.3-8.2) g/dL Albumin 2.5 L (3.5-5.0) g/dL 01/10/17 01/10/17 Range/Units 06:22 11:48 WBC (3.8-10.6) k/uL RBC (4.30-5.90) m/uL Hgb (13.0-17.5) gm/dL Hct (39.0-53.0) % RDW (11.5-15.5) % Lymphocytes # (Manual) (1.0-4.8) k/uL PT (9.0-12.0) sec Sodium (137-145) mmol/L BUN (9-20) mg/dL Glucose (74-99) mg/dL POC Glucose (mg/dL) 192 H 297 H (75-99) mg/dL Calcium (8.4-10.2) mg/dL Total Bilirubin (0.2-1.3) mg/dL Total Protein (6.3-8.2) g/dL Albumin (3.5-5.0) g/dL Assessment and Plan Plan: I met with Mr. Cotton, and discussed that he should continue to have his radiotherapy held at this moment. The patient is concerned that he will not be able to finish his neoadjuvant treatment as prescribed. I recommended that the patient undergo reevaluation in the coming days. I explained to the patient, that his supratherapeutic INR is likely at least in part to blame for his increased blood in the stool. The patient will be seen by Dr. Zambrano to discuss possible continuation of his therapy later this week. Time with Patient: Less than 30
[2017-01-10 16:55] LABS: Glucose,Whole Blood 240 mg/dL (75-99)
[2017-01-10] MEDS: LIDOCAINE 2% GEL 30 ML TUBE TOPICAL PRN (20:30)
[2017-01-10 20:37] LABS: Glucose,Whole Blood 247 mg/dL (75-99)
[2017-01-10] MEDS: INSULIN GLARGINE 100 UNIT/ML 10 ML VIAL SQ SCH (20:41)
[2017-01-10] MEDS: DIPHENOX-ATROP 2.5-0.025 MG 1 EACH TAB PO SCH (20:42)
[2017-01-10] MEDS: ATORVASTATIN 20 MG TAB PO SCH (20:42)
[2017-01-11] MEDS: HYDROmorphone 1 MG/ML 1 ML SYRINGE IVP PRN ×3 (01:22→09:02)
[2017-01-11 02:11] VITALS: RESP 18
[2017-01-11 06:00] LABS: Glucose,Whole Blood 208 mg/dL (75-99)
[2017-01-11] MEDS: INSULIN LISPRO (humaLOG) 300 UNIT/3 ML VIAL SQ SCH ×2 (06:50→12:05)
[2017-01-11] MEDS: SODIUM CHLORIDE 0.9% 1,000 ML IV SCH ×2 (06:50→08:52)
[2017-01-11 06:57] LABS: INR 2.5 (<1.1); Prothrombin Time 23.9 sec (9.0-12.0)
[2017-01-11] MEDS: WITCH HAZEL 1 EACH MED..PAD TOPICAL SCH (08:50)
[2017-01-11] MEDS: DIPHENOX-ATROP 2.5-0.025 MG 1 EACH TAB PO SCH (08:51)
[2017-01-11] MEDS: PANTOPRAZOLE 40 MG/10 ML VIAL IVP SCH (08:52)
[2017-01-11] MEDS: DIGOXIN 125 MCG TAB PO SCH (08:52)
[2017-01-11] MEDS ORDERED: DILTIAZEM CD 180 MG CAP.ER.24H PO SCH (09:00)
[2017-01-11 09:41] VITALS: BP 139/77; PULSE 118; TEMP 97.7
--- NOTE | 2017-01-11 09:50 | P.PN ---
Subjective Principal diagnosis: Rectal bleeding history of rectal cancer 71-year-old gentleman recently diagnosed with stage II rectal adenocarcinoma undergoing chemoradiation. Admitted with severe rectal bleeding. Patient had multiple bloody stools last night. History of underlying A. fib with Coumadin coagulopathy currently on hold; INR 2.5 today. C. difficile toxin negative. Reports perirectal discomfort. Hemoglobin 11.2 yesterday. Objective - Vital Signs Vital signs: Vital Signs Temp 97.7 F 01/11/17 08:00 Pulse 118 H 01/11/17 08:00 Resp 18 01/11/17 08:00 BP 139/77 01/11/17 08:00 Pulse Ox 96 01/11/17 08:00 Intake & Output 01/10/17 01/11/17 01/11/17 18:59 06:59 18:59 Intake Total 320 600 Output Total 420 900 Balance -100 -900 600 Weight 97.7 kg 98.7 kg Intake: Oral 320 600 Output: Urine 420 900 Other: Voiding Method Toilet Toilet Toilet # Voids 1 1 # Bowel Movements 1 2 - Exam General appearance: The patient is alert, oriented, in no acute distress. HET: Head is normocephalic and atraumatic. Pupils are equal and reactive. Oropharynx is clear without lesions. Neck: Supple without lymphadenopathy. Trachea midline. Heart: S1 S2. Regular rate and rhythm. Lungs: No crackles or wheezes are heard. Abdomen: Soft, nontender, nondistended with bowel sounds. No peritoneal signs. No palpable organomegaly or masses. Extremities: Normal skin color and turgor. No cyanosis, rash, ulceration, clubbing, or edema. Radial and pedal pulses are 2/4 bilaterally. Neurological: No focal deficits. Strength and sensation are grossly intact. - Labs CBC & Chem 7: 01/10/17 05:58 01/10/17 05:58 Labs: Abnormal Lab Results - Last 24 Hours (Table) 01/10/17 01/10/17 01/10/17 Range/Units 05:58 11:48 16:45 Lymphocytes # (Manual) 0.1 L (1.0-4.8) k/uL PT (9.0-12.0) sec POC Glucose (mg/dL) 297 H 240 H (75-99) mg/dL 01/10/17 01/11/17 01/11/17 Range/Units 20:35 05:56 05:59 Lymphocytes # (Manual) (1.0-4.8) k/uL PT 23.9 H (9.0-12.0) sec POC Glucose (mg/dL) 247 H 208 H (75-99) mg/dL Assessment and Plan (1) Rectal bleed Narrative/Plan: Combination of radiation proctitis as well as rectal mass aggravated by Coumadin coagulopathy Status: Acute (2) Rectal carcinoma Status: Acute (3) Acute blood loss anemia Status: Acute (4) Chronic a-fib Status: Acute (5) Warfarin-induced coagulopathy Status: Acute Plan: 1. Continue to hold Coumadin. Follow CBC closely. Supportive measures. Endoscopic intervention not planned at this time. Assessment and plan a care discussed with Dr. Stewart.
--- NOTE | 2017-01-11 11:15 | CDI ---
In responding to this query, please exercise your independent professional judgment. The [facility] Coding Staff and Clinical Documentation Specialists appreciate your assistance in clarifying documentation, maintaining compliance with coding guidelines, accurately documenting patients condition and capturing severity of illness. The fact that a question is asked does not imply that any particular answer is desired or expected. Communication forms are a method of clarifying documentation and are not made part of the Legal Health Record. Thank you in advance for your clarification. Last Revision, June 2015 Campos Dowd [address] [place] [address] Documentation Clarification Form Date: 01/11/2017 11:03:00 AM From: Yaatracee Montoya Admit Date: 01/08/2017 2:41:00 AM Patient Name: Bacilio Cotton Visit Number: [id number] Discharge Date: Dr. Bacilio Fields/Agnieszka Kelly HAND CLERICAL VERIFIER-C Possible protein calorie malnutrition is in the H/P on 01/08/17 History/Risk Factors: [place] of rectum, Atrial fibrillation, CVA, hypertension , current smoker Clinical Indicators: Labs: Albumin 3.3, Total Protein 5.9 Current BMI: 27.9 Insufficient energy intake: Good consumed 75-100 % Weight Loss: Stated may have lost some weight from diarrhea Treatment: Glucerna TID Dietary Consult: Yes Lab monitoring: In your professional opinion, can you please clarify if these findings signify one of the following conditions? Mild Protein-Calorie Malnutrition Moderate Protein-Calorie Malnutrition Severe Protein-Calorie Malnutrition Other condition, please specify Unable to determine Please document in your progress notes and discharge summary in order to capture severity of illness and risk of mortality. Include clinical findings that support your diagnosis. FYI: Press F11 to launch patient chart. Place X here if this finding has no clinical significance, is not applicable or if you are not able to provide any additional documentation. MTDD
[2017-01-11 11:45] LABS: Glucose,Whole Blood 307 mg/dL (75-99)
[2017-01-11] MEDS: HYDROCORTISONE SUPPOSITORY 25 MG SUPP RECTAL SCH (12:04)
--- NOTE | 2017-01-11 13:02 | P.PN ---
Subjective Principal diagnosis: GI bleed and atrial fibrillation with rapid ventricular response This is a 71-year-old gentleman with history of rectal cancer, A. fib , prior CVA, hypertension, diabetes, hyperlipidemia, who initially presented to the hospital with lower GI bleeding. Patient has been treated with radiation oncology for rectal cancer with radiation. He also was noted to have mild coagulopathy on admission with an INR of 4.9, he was on Coumadin for his atrial fibrillation. Cardiology consultation was requested because of atrial fibrillation with a rapid ventricular response. He was initiated on a Cardizem CD by Dr. Madden, dose increased to 180 mg daily. Arrangements are being made for patient to be discharged home today. Echocardiogram with Doppler study revealed an ejection fraction of 50-55%. Objective - Vital Signs Vital signs: Vital Signs Temp 97.7 F 01/11/17 08:00 Pulse 118 H 01/11/17 08:00 Resp 18 01/11/17 08:00 BP 139/77 01/11/17 08:00 Pulse Ox 96 01/11/17 08:00 Intake & Output 01/10/17 01/11/17 01/11/17 18:59 06:59 18:59 Intake Total 320 600 Output Total 420 900 Balance -100 -900 600 Weight 97.7 kg 98.7 kg Intake: Oral 320 600 Output: Urine 420 900 Other: Voiding Method Toilet Toilet Toilet # Voids 1 1 # Bowel Movements 1 2 - Exam PHYSICAL EXAMINATION: HEENT: Head is atraumatic, normocephalic. Pupils equal, round. Neck is supple. There is no elevated jugular venous pressure. HEART EXAMINATION:Heart S1 and S2 irregularly irregular systolic murmur is heard. CHEST EXAMINATION: Lungs are clear with mild diminished air entry to posterior bases. ABDOMEN: Soft, nontender. Bowel sounds are heard. No organomegaly noted. EXTREMITIES: 2+ peripheral pulses with no evidence of peripheral edema and no calf tenderness noted. NEUROLOGIC patient is awake, alert and oriented -3. . - Labs CBC & Chem 7: 01/10/17 05:58 01/10/17 05:58 Labs: Abnormal Lab Results - Last 24 Hours (Table) 01/10/17 01/10/17 01/11/17 Range/Units 16:45 20:35 05:56 PT 23.9 H (9.0-12.0) sec POC Glucose (mg/dL) 240 H 247 H (75-99) mg/dL 01/11/17 01/11/17 Range/Units 05:59 11:39 PT (9.0-12.0) sec POC Glucose (mg/dL) 208 H 307 H (75-99) mg/dL Assessment and Plan (1) Rectal bleed Status: Acute (2) Rectal carcinoma Status: Acute (3) Acute blood loss anemia Status: Acute (4) Coagulopathy Status: Acute (5) Chronic a-fib Status: Acute (6) Diabetes Status: Acute (7) History of CVA (cerebrovascular accident) Status: Acute (8) Hyperlipemia Status: Acute Plan: From cardiology's perspective, we'll recommend to continue the patient on Cardizem 180 mg by mouth daily along with Coumadin. Once he is discharged home from the hospital follow-up appointment will be made in the office with Dr. Fajardo. DNP note has been reviewed, I agree with a documented findings and plan of care. Patient was seen and examined.
--- NOTE | 2017-01-11 13:04 | P.DS ---
Providers Date of admission: 01/08/17 02:41 Expected date of discharge: 01/11/17 Attending physician: Bacilio Fields Consults: 01/08/17 02:41 Consult Physician Routine Consulting Provider: Bianca Fraga Consult Reason/Comments: atrial fibrillation with RVR Do you want consulting provider notified?: Yes 01/08/17 08:52 Consult Physician Routine Consulting Provider: Adam Zambrano Consult Reason/Comments: rectal bleeding s/p radiation treatment Do you want consulting provider notified?: Yes 01/08/17 09:57 Consult Physician Routine Consulting Provider: Satya White Consult Reason/Comments: rectal ca with bleeding Do you want consulting provider notified?: Already Contacted 01/08/17 09:58 Consult Physician Routine Consulting Provider: Mackenzie Stewart Consult Reason/Comments: rectal ca with bleeding Do you want consulting provider notified?: Yes Primary care physician: [facility] Course: 71-year-old male one of Dr. Kris John's patient with past medical history of rectal cancer A. 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 Patient has been treated with radiation oncology for rectal cancer with radiation therapy had 3 sessions so far the last one was a day early. Patient also see oncology for his colorectal's cancer and has been well managed with them. No recent history of bleeding. Surprisingly had mild coagulopathy on admission with INR of 4.9 has been on warfarin for A. fib with RVR. Also pulse rate was quite bit high started on Cardizem drip and had to stop it shortly patient was seen cardiology and medication were converted to oral meds. 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 Patient was seen cardiology and oncology at this point and still well managed and controlled medically. 01/10: Today, INR is 3.2, hemoglobin is 11.2. BUN 25 and creatinine 1.14. Echocardiogram reveals EF 50-55%, mild aortic valve sclerosis, borderline concentric left ventricular hypertrophy, trace mitral regurgitation. Cardiology has recommended to continue Cardizem 180 mg with Coumadin. Gastroenterology does not plan for any endoscopy. Anusol twice daily has been ordered. Patient continues to have significant pain for which Dilaudid frequency and amount have been increased. 01/11: Cardiology has recommended continuing Cardizem 180 mg along with Coumadin and follow up in the office. Gastroenterology is recommending holding Coumadin. His INR today is 2.5. Discharge diagnoses: 1 acute rectal bleed: From rectal carcinoma stage II with radiation 2 acute blood loss anemia 3 coagulopathy due to Coumadin and comorbidities 4 A. fib with RVR with paroxysmal atrial fibrillation 5 type 2 diabetes insulin requiring, uncontrolled 6 history of CVA 7 hyperlipidemia Discharge plan: Return home Impression and plan of care have been directed as dictated by the signing physician. Agnieszka Kelly nurse practitioner acting as scribe for signing physician. Patient Condition at Discharge: Stable Plan - Discharge Summary New Discharge Prescriptions: New RX: Diltiazem Cd [Cardizem CD] 180 mg PO DAILY #30 cap RX: HYDROcodone/APAP 7.5-325MG [[place] 7.5-325] 1 each PO Q6H PRN #30 tab PRN Reason: Pain RX: Hydrocortisone Suppository [Anusol-Hc] 25 mg RECTAL BID #60 suppositor RX: Witch Sari [Tucks Medicated Pads] 1 each TOPICAL QID pad Continue RX: Insulin Glargine [Lantus] 20 unit SQ HS RX: Insulin Aspart [NovoLOG] 0 unit SQ TID-W/MEALS PRN PRN Reason: scale RX: Simvastatin [Zocor] 40 mg PO HS RX: Indapamide [Lozol] 1.25 mg PO DAILY RX: Warfarin Sodium [Coumadin] 5 mg PO MOWEFR RX: Warfarin Sodium [Coumadin] 10 mg PO SUTUTHSA RX: Digoxin [Digitek] 125 mcg PO DAILY RX: Diphenoxylate HCl/Atropine [Lomotil] 1 - 2 tab PO QID PRN PRN Reason: Diarrhea RX: Diclofenac Sodium [Voltaren] 75 mg PO BID #0 Discontinued Lisinopril [Prinivil] 20 mg PO QAM Discharge Medication List RX: Digoxin [Digitek] 125 mcg PO DAILY 11/08/16 [History] RX: Indapamide [Lozol] 1.25 mg PO DAILY 11/08/16 [History] RX: Insulin Aspart [NovoLOG] 0 unit SQ TID-W/MEALS PRN 11/08/16 [History] RX: Insulin Glargine [Lantus] 20 unit SQ HS 11/08/16 [History] RX: Simvastatin [Zocor] 40 mg PO HS 11/08/16 [History] RX: Warfarin Sodium [Coumadin] 5 mg PO MOWEFR 11/08/16 [History] RX: Warfarin Sodium [Coumadin] 10 mg PO SUTUTHSA 11/08/16 [History] RX: Diphenoxylate HCl/Atropine [Lomotil] 1 - 2 tab PO QID PRN 01/08/17 [History] RX: Diclofenac Sodium [Voltaren] 75 mg PO BID #0 01/11/17 [Rx] RX: Diltiazem Cd [Cardizem CD] 180 mg PO DAILY #30 cap 01/11/17 [Rx] RX: HYDROcodone/APAP 7.5-325MG [[place] 7.5-325] 1 each PO Q6H PRN #30 tab [Rx] RX: Hydrocortisone Suppository [Anusol-Hc] 25 mg RECTAL BID #60 suppositor 01/11 [Rx] RX: Witch Sari [Tucks Medicated Pads] 1 each TOPICAL QID pad 01/11/17 [Rx] Follow up Appointment(s)/Referral(s): [facility] [Provider Group] - 1 Week (office will call you with date and time for follow up appointment) Kris John MD [Primary Care Provider] - 01/19/17 10:15 am Ambulatory/Diagnostic Orders: Prothrombin Time INR [LAB.AMB] Location: Determined By Patient Activity/Diet/Wound Care/Special Instructions: Resume Coumadin in one week.
[2017-01-16 16:08] LABS: Cryptosporidium parvum Not detected (Not detected); Isospora belli Not detected (Not detected); Microsporidium Not detected (Not detected); Routine Ova and Parasites Not detected
== END 2017-01-11 13:24 | disposition home or self-care (01) | DRG 375 ==
LOC: EC 23:00 → 6SEL 01-08 02:41
PROVIDERS: ADMIT Internal Medicine Geriatric Medicine; ATTEND Internal Medicine Geriatric Medicine
DX: C20 Malignant neoplasm of rectum (principal); D62 Acute posthemorrhagic anemia; N17.9 Acute kidney failure, unspecified; E11.22 Type 2 diabetes mellitus with diabetic chronic kidney disease; E11.65 Type 2 diabetes mellitus with hyperglycemia; E44.1 Mild protein-calorie malnutrition; I48.0 Paroxysmal atrial fibrillation; E86.0 Dehydration; E87.1 Hypo-osmolality and hyponatremia; I12.9 Hypertensive chronic kidney disease with stage 1 through stage 4 chronic kidney disease, or unspecified chronic kidney disease; I48.2 Chronic atrial fibrillation; E78.5 Hyperlipidemia, unspecified; F17.200 Nicotine dependence, unspecified, uncomplicated; I35.8 Other nonrheumatic aortic valve disorders; K62.7 Radiation proctitis; M19.90 Unspecified osteoarthritis, unspecified site; N18.9 Chronic kidney disease, unspecified; R79.1 Abnormal coagulation profile; T45.515A Adverse effect of anticoagulants, initial encounter; Z79.01 Long term (current) use of anticoagulants; Z79.4 Long term (current) use of insulin; Z79.82 Long term (current) use of aspirin; Z79.899 Other long term (current) drug therapy; Z80.1 Family history of malignant neoplasm of trachea, bronchus and lung; Z80.6 Family history of leukemia; Z80.8 Family history of malignant neoplasm of other organs or systems; Z86.010 Personal history of colon polyps; Z86.73 Personal history of transient ischemic attack (TIA), and cerebral infarction without residual deficits; Z87.01 Personal history of pneumonia (recurrent); Z92.3 Personal history of irradiation
CPT/HCPCS: 36415; 71020; 80048; 80053; 80061; 80162; 82550; 82553; 82728; 83036; 83540; 83550; 83735; 84484; 85025; 85027; 85610; 85730; 86850; 86900; 86901; 87045; 87046; 87177; 87207; 87209; 87324; 93005; 93306; 96365; 96366; 96375; 99285

== ENCOUNTER 2017-02-09 14:02 | Inpatient (IN) | payer MEDICARE ==
[2017-02-09] MEDS ORDERED: SODIUM CHLORIDE 0.9% 1,000 ML IV STA (14:50)
[2017-02-09 15:20] LABS: Anisocytosis Slight; Basophils % (A) 0 %; CH 32.6; CHCM 32.9; Eosinophils # (A) 0.3 k/uL (0-0.7); Eosinophils % (A) 3 %; HCT 36.3 % (39.0-53.0); HDW 2.98; HGB 12.6 gm/dL (13.0-17.5); Luc # (Auto) 0.16; Luc % (Auto) 2; Lymphocytes # (A) 0.5 k/uL (1.0-4.8); Lymphocytes % (A) 7 %; MCH 34.5 pg (25.0-35.0); MCHC 34.7 g/dL (31.0-37.0); MCV 99.3 fL (80.0-100.0); Macrocytosis Slight; Mean Platelet Volume 9.1; Monocytes # (A) 0.5 k/uL (0-1.0); Monocytes % (A) 7 %; Neutrophils # (A) 5.8 k/uL (1.3-7.7); Neutrophils % (A) 80 %; RBC 3.65 m/uL (4.30-5.90); RDW 16.3 % (11.5-15.5); WBC 7.3 k/uL (3.8-10.6); WBC (Perox) 7.79
[2017-02-09 15:24] LABS: Appearance,Urine Clear (Clear); Bilirubin,Urine Negative (Negative); Glucose,Urine (UA) Trace (Negative); Ketones,Urine Negative (Negative); Leukocyte Esterase,Urine Negative (Negative); Nitrite,Urine Negative (Negative); Protein,Urine Negative (Negative); Specific Gravity,Urine 1.014 (1.001-1.035); UA Billing (MACRO vs. MICRO) CHEM; Urobilinogen,Urine <2.0 mg/dL (<2.0)
[2017-02-09 15:25] LABS: INR 1.1 (<1.1); Partial Thromboplastin Time 23.5 sec (22.0-30.0); Prothrombin Time 11.1 sec (9.0-12.0)
[2017-02-09 15:28] LABS: ALT 25 U/L (21-72); AST 18 U/L (17-59); Alkaline Phosphatase 71 U/L (38-126); Anion Gap 9 mmol/L; Blood Urea Nitrogen 29 mg/dL (9-20); Calcium 8.5 mg/dL (8.4-10.2); Carbon Dioxide 23 mmol/L (22-30); Chloride 108 mmol/L (98-107); Glucose 164 mg/dL (74-99); Non-African American GFR(MDRD) 52 (>60 ml/min/1.73 sqM); Potassium 4.8 mmol/L (3.5-5.1); Sodium 140 mmol/L (137-145); Total Bilirubin 0.7 mg/dL (0.2-1.3); Total Protein 6.2 g/dL (6.3-8.2)
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
--- NOTE | 2017-02-09 15:32 | XR ---
EXAMINATION TYPE: XR foot complete RT DATE OF EXAM: 02/09/2017 COMPARISON: NONE HISTORY: 71-year-old male with pain, redness, swelling TECHNIQUE: 3 views FINDINGS: Diffuse soft tissue swelling of the foot. No acute fracture or dislocation. Vascular calcification forte ggesting diabetes in her chronic kidney disease. No focal osseous erosions are identified. IMPRESSION: Diffuse soft tissue swelling, nonspecific, could represent cellulitis. No radiographic evidence for o steomyelitis at this time.
[2017-02-09] MEDS ORDERED: IBUPROFEN 400 MG TAB PO PRN (16:07)
[2017-02-09] MEDS ORDERED: KETOROLAC 30 MG/ML 1 ML VIAL IVP PRN (16:07)
[2017-02-09] MEDS ORDERED: ACETAMINOPHEN TAB 325 MG TAB PO PRN (16:07)
[2017-02-09] MEDS ORDERED: HYDROcodone/APAP 5-325MG 1 EACH TAB PO PRN (16:07)
[2017-02-09] MEDS ORDERED: ONDANSETRON 4 MG/2 ML VIAL IVP PRN (16:07)
[2017-02-09] MEDS ORDERED: NALOXONE 0.4 MG/ML 1 ML VIAL IV PRN (16:07)
[2017-02-09 17:23] LABS: Glucose,Whole Blood 127 mg/dL (75-99)
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
[2017-02-09] MEDS: INSULIN LISPRO (humaLOG) 300 UNIT/3 ML VIAL SQ SCH ×2 (18:31→20:17)
[2017-02-09 18:58] LABS: Hemoglobin A1C 7.8 % (4.2-6.1)
[2017-02-09] MEDS: HEPARIN SODIUM,PORCINE/D5W PMX 25,000 UNIT in DEXTROSE/WATER 1 500ML.BAG IV SCH (19:56)
[2017-02-09 20:08] LABS: Glucose,Whole Blood 215 mg/dL (75-99)
[2017-02-09] MEDS: SODIUM CHLORIDE 0.9% 1,000 ML IV SCH (20:09)
[2017-02-09] MEDS: HYDROcodone/APAP 7.5-325MG 1 EACH TAB PO PRN (20:15)
[2017-02-09] MEDS: ATORVASTATIN 20 MG TAB PO SCH (20:16)
[2017-02-09] MEDS: METOPROLOL TARTRATE 25 MG TAB PO SCH (20:16)
[2017-02-09] MEDS: INSULIN GLARGINE 100 UNIT/ML 10 ML VIAL SQ SCH (23:21)
[2017-02-10] MEDS: HYDROcodone/APAP 7.5-325MG 1 EACH TAB PO PRN ×5 (01:48→21:58)
[2017-02-10] MEDS: SODIUM CHLORIDE 0.9% 1,000 ML IV SCH ×3 (03:36→22:00)
[2017-02-10] MEDS ORDERED: SODIUM CHLORIDE 0.9% 1,000 ML IV ONE (06:28)
[2017-02-10] MEDS ORDERED: LIDOCAINE 2% INJ 20 MG/ML SQ ONE (06:37)
[2017-02-10] MEDS ORDERED: MIDAZOLAM 2 MG/2 ML VIAL IV ONE (06:37)
[2017-02-10] MEDS ORDERED: IODIXANOL 320 MG/ML 100 ML INTRAARTER ONE (07:24)
[2017-02-10] MEDS: INSULIN LISPRO (humaLOG) 300 UNIT/3 ML VIAL SQ SCH ×4 (08:37→21:57)
[2017-02-10] MEDS: HEPARIN SODIUM,PORCINE/D5W PMX 25,000 UNIT in DEXTROSE/WATER 1 500ML.BAG IV SCH ×2 (08:50→20:32)
[2017-02-10] MEDS ORDERED: PANTOPRAZOLE 40 MG/10 ML VIAL IVP SCH (09:00)
[2017-02-10] MEDS ORDERED: FUROSEMIDE 20 MG TAB PO SCH (09:00)
[2017-02-10 09:03] LABS: Anisocytosis Slight; Basophils % (A) 0 %; CH 32.6; CHCM 32.6; Eosinophils # (A) 0.2 k/uL (0-0.7); Eosinophils % (A) 4 %; HCT 34.8 % (39.0-53.0); HDW 2.99; HGB 11.7 gm/dL (13.0-17.5); Hypochromasia Slight; Luc # (Auto) 0.12; Luc % (Auto) 2; Lymphocytes # (A) 0.4 k/uL (1.0-4.8); Lymphocytes % (A) 7 %; MCH 33.8 pg (25.0-35.0); MCHC 33.6 g/dL (31.0-37.0); MCV 100.6 fL (80.0-100.0); Macrocytosis Slight; Mean Platelet Volume 8.4; Monocytes # (A) 0.3 k/uL (0-1.0); Monocytes % (A) 6 %; Neutrophils # (A) 4.4 k/uL (1.3-7.7); Neutrophils % (A) 80 %; RBC 3.46 m/uL (4.30-5.90); RDW 16.3 % (11.5-15.5); WBC 5.5 k/uL (3.8-10.6)
[2017-02-10 09:14] LABS: ALT 22 U/L (21-72); AST 14 U/L (17-59); Alkaline Phosphatase 63 U/L (38-126); Anion Gap 9 mmol/L; Blood Urea Nitrogen 18 mg/dL (9-20); Calcium 8.2 mg/dL (8.4-10.2); Carbon Dioxide 23 mmol/L (22-30); Chloride 106 mmol/L (98-107); Digoxin 0.8 ng/mL; Glucose 208 mg/dL (74-99); Magnesium 1.7 mg/dL (1.6-2.3); Non-African American GFR(MDRD) >60 (>60 ml/min/1.73 sqM); Potassium 4.7 mmol/L (3.5-5.1); Sodium 138 mmol/L (137-145); Total Protein 5.7 g/dL (6.3-8.2)
[2017-02-10] MEDS: DILTIAZEM CD 180 MG CAP.ER.24H PO SCH (09:34)
[2017-02-10] MEDS: METOPROLOL TARTRATE 25 MG TAB PO SCH ×2 (09:34→20:32)
[2017-02-10] MEDS: DIGOXIN 125 MCG TAB PO SCH (09:34)
[2017-02-10 12:04] LABS: Glucose,Whole Blood 182 mg/dL (75-99)
--- NOTE | 2017-02-10 14:27 | P.PN ---
Subjective This is a 71-year-old male one of Dr. Alvaro Ponce with a previous medical history significant for paroxysmal atrial fibrillation, diabetes mellitus type 2 with diabetic neuropathy, history of rectal cancer stage II diagnosed back in October 2015 followed by radiation therapy under the care of Dr. Hobson apparently he was doing fine up until 14 days ago when he developed to have an increased swelling and purple discoloration of the dorsal aspect of the right foot with severe pain with ambulation, patient went for a follow-up with his radiation oncologist after he has had 19 out of 25 radiation and he could not take it anymore because of the discomfort in the rectal area despite the Anusol cream, patient was sent to the ER for evaluation was thought at the beginning the patient had suffered from cellulitis of the right foot however after evaluated the patient on the bedside I could no feel any pulse subsequently an Doppler was obtained to check for pulses and patient does not have any signal just very faint dorsalis pedis and no posterior tibialis on the right and he has faint dorsalis pedis on the left as well as a faint posterior tibialis on the left, I've cold vascular surgery consultation Dr. Sharif came to the bedside and he recommended for the patient to be started on heparin drip , patient also will be started on nothing per mouth overnight he is to go for angiogram tomorrow morning. . 02/10: Patient is status post angiogram this morning with Dr. Sharif. Patient is continued on heparin drip and we will plan to resume Coumadin today. He was previously on 5 mg Monday and 10 mg other days. Patient is complaining of his foot feeling sore. Pulses only by Doppler. Objective - Vital Signs Vital signs: Vital Signs Temp 98.1 F 02/09/17 23:19 Pulse 63 02/09/17 23:19 Resp 14 02/10/17 08:30 BP 157/68 02/10/17 08:30 Pulse Ox 97 02/09/17 23:19 Intake & Output 02/09/17 02/10/17 02/10/17 18:59 06:59 18:59 Intake Total 257.608 Output Total 175 375 Balance 82.608 -375 Weight 98.883 kg Intake: IV 50 Intake, IV Titration 207.608 Amount Heparin Sodium,Porcine/ 207.608 D5w Pmx 25,000 unit In Dextrose/Water 1 500ml. bag @ 18 UNITS/KG/HR 35. 59 mls/hr IV .Q14H3M [facility] Rx#:[id number] Output: Urine 175 375 Other: # Voids 3 # Bowel Movements 1 - Exam General appearance: average body habitus, no acute distress - EENT Eyes: anicteric sclerae, EOMI, PERRLA, no ptosis, no scleral icterus, normal appearance ENT: NA/AT, normal oropharynx, no thrush Ears: bilateral: normal - Neck Neck: no lymphadenopathy, normal ROM, no rigidity, no stridor, no thyromegaly Carotids: bilateral: upstroke normal Thyroid: bilateral: normal size - Respiratory Respiratory: bilateral: diminished, negative: dullness, rales, rhonchi, wheezing , prolonged expiration - Cardiovascular Rhythm: regular Heart sounds: normal: S1, S2 Abnormal Heart Sounds: systolic murmur, no rub, no S3 Gallop, no S4 Gallop, no click - Gastrointestinal General gastrointestinal: normal bowel sounds, soft, no splenomegaly, no tenderness, no umbilical hernia, no ventral hernia - Integumentary Integumentary: cellulitis (Right foot) - Neurologic Neurologic: CNII-XII intact - Musculoskeletal Musculoskeletal: generalized weakness, strength equal bilaterally - Psychiatric Psychiatric: A&O x's 3, appropriate affect, intact judgment & insight - Labs CBC & Chem 7: 02/10/17 08:38 02/10/17 08:38 Labs: Abnormal Lab Results - Last 24 Hours (Table) 02/09/17 02/09/17 02/09/17 Range/Units 14:55 15:00 15:00 RBC 3.65 L (4.30-5.90) m/uL Hgb 12.6 L (13.0-17.5) gm/dL Hct 36.3 L (39.0-53.0) % RDW 16.3 H (11.5-15.5) % Lymphocytes # 0.5 L (1.0-4.8) k/uL Chloride 108 H (98-107) mmol/L BUN 29 H (9-20) mg/dL Creatinine 1.36 H (0.66-1.25) mg/dL Glucose 164 H (74-99) mg/dL POC Glucose (mg/dL) (75-99) mg/dL Hemoglobin A1c (4.2-6.1) % Total Protein 6.2 L (6.3-8.2) g/dL Albumin 3.3 L (3.5-5.0) g/dL Urine Glucose (UA) Trace H (Negative) 02/09/17 02/09/17 02/09/17 Range/Units 15:00 17:17 20:04 RBC (4.30-5.90) m/uL Hgb (13.0-17.5) gm/dL Hct (39.0-53.0) % RDW (11.5-15.5) % Lymphocytes # (1.0-4.8) k/uL Chloride (98-107) mmol/L BUN (9-20) mg/dL Creatinine (0.66-1.25) mg/dL Glucose (74-99) mg/dL POC Glucose (mg/dL) 127 H 215 H (75-99) mg/dL Hemoglobin A1c 7.8 H (4.2-6.1) % Total Protein (6.3-8.2) g/dL Albumin (3.5-5.0) g/dL Urine Glucose (UA) (Negative) Assessment and Plan Plan: 1. Right ischemic foot. Start the patient on heparin drip, status post angiogram, patient does have a very faint pulse by Doppler signal on the right and stronger on the left. Vascular surgery consultation from Dr. Sharif, continue simvastatin 40 mg at bedtime for secondary prevention. I did rectal examination for the patient at that time and there was no active bleeding at this time. 2. Stage II rectal cancer post-radiation therapy. We will consult oncology. 3. Paroxysmal atrial fibrillation. Continue Cardizem CD 180 mg orally once every day, digoxin 125 g orally once every day, metoprolol 25 mg orally twice every day, patient was taken off Coumadin recently as his INR is subtherapeutic. Start the patient on heparin drip. 4. Diabetes mellitus type 2. Continue Lantus 22 units of bedtime along with a sliding scale insulin, continue patient on consistent carbohydrate diet, monitor blood glucose before each meal and at bedtime. 5. Hyperlipidemia. Continue simvastatin 40 mg at bedtime. 6. Hypertension and hypertensive cardiovascular disease. Continue patient on metoprolol 25 mg orally twice every day. 7. History of CVA in the past. Patient will need to be on Coumadin for for secondary stroke prevention, continue simvastatin 40 mg at bedtime. 8. History of her recent rectal bleed status post blood transfusion. Resolved. 9. DVT prophylaxis. Patient will need to go back and Coumadin if no contraindication. 10. GI prophylaxis. Pepcid 20 mg orally once every day. 11. Admitted to inpatient. Estimated length of stay 2 midnights. 12. Patient is a full code. Discharge plan: Possibly home tomorrow. Impression and plan of care have been directed as dictated by the signing physician. Agnieszka Kelly nurse practitioner acting as scribe for signing physician.
[2017-02-10 16:55] LABS: Glucose,Whole Blood 213 mg/dL (75-99)
[2017-02-10] MEDS ORDERED: WARFARIN 10 MG TAB PO ONE (18:00)
[2017-02-10] MEDS: ATORVASTATIN 20 MG TAB PO SCH (20:32)
[2017-02-10 21:02] LABS: Glucose,Whole Blood 297 mg/dL (75-99)
[2017-02-10] MEDS: INSULIN GLARGINE 100 UNIT/ML 10 ML VIAL SQ SCH (21:58)
[2017-02-11] MEDS: HYDROcodone/APAP 7.5-325MG 1 EACH TAB PO PRN ×5 (02:00→21:23)
[2017-02-11 05:52] LABS: Glucose,Whole Blood 293 mg/dL (75-99)
[2017-02-11 06:31] LABS: Anisocytosis Slight; CH 33.2; CHCM 32.7; HCT 34.6 % (39.0-53.0); HDW 2.88; HGB 11.2 gm/dL (13.0-17.5); MCH 33.1 pg (25.0-35.0); MCHC 32.4 g/dL (31.0-37.0); MCV 102.1 fL (80.0-100.0); Macrocytosis Moderate; Mean Platelet Volume 8.7; RBC 3.39 m/uL (4.30-5.90); RDW 16.4 % (11.5-15.5); WBC 5.4 k/uL (3.8-10.6)
[2017-02-11] MEDS: INSULIN LISPRO (humaLOG) 300 UNIT/3 ML VIAL SQ SCH ×6 (06:35→21:25)
[2017-02-11 06:36] LABS: INR 1.2 (<1.1); Partial Thromboplastin Time 67.4 sec (22.0-30.0); Prothrombin Time 12.2 sec (9.0-12.0)
[2017-02-11 07:41] LABS: Anion Gap 8 mmol/L; Blood Urea Nitrogen 15 mg/dL (9-20); Calcium 8.4 mg/dL (8.4-10.2); Carbon Dioxide 24 mmol/L (22-30); Chloride 106 mmol/L (98-107); Glucose 295 mg/dL (74-99); Non-African American GFR(MDRD) >60 (>60 ml/min/1.73 sqM); Potassium 4.9 mmol/L (3.5-5.1); Sodium 138 mmol/L (137-145)
[2017-02-11] MEDS: PANTOPRAZOLE 40 MG TABLET PO SCH (09:01)
[2017-02-11] MEDS: SODIUM CHLORIDE 0.9% 1,000 ML IV SCH ×3 (09:01→16:46)
[2017-02-11] MEDS: DIGOXIN 125 MCG TAB PO SCH (09:01)
[2017-02-11] MEDS: METOPROLOL TARTRATE 25 MG TAB PO SCH ×2 (09:01→21:24)
[2017-02-11] MEDS: DILTIAZEM CD 180 MG CAP.ER.24H PO SCH (09:01)
[2017-02-11] MEDS: POTASSIUM CHLORIDE ER 10 MEQ TAB.ER.PRT PO SCH ×2 (10:30→21:24)
[2017-02-11] MEDS: FUROSEMIDE 20 MG TAB PO SCH ×2 (10:30→16:30)
[2017-02-11 11:49] LABS: Glucose,Whole Blood 252 mg/dL (75-99)
[2017-02-11] MEDS: HEPARIN SODIUM,PORCINE/D5W PMX 25,000 UNIT in DEXTROSE/WATER 1 500ML.BAG IV SCH (13:12)
--- NOTE | 2017-02-11 13:50 | P.PN ---
Subjective This is a 71-year-old male one of Dr. Alvaro Ponce with a previous medical history significant for paroxysmal atrial fibrillation, diabetes mellitus type 2 with diabetic neuropathy, history of rectal cancer stage II diagnosed back in October 2015 followed by radiation therapy under the care of Dr. Hobson apparently he was doing fine up until 14 days ago when he developed to have an increased swelling and purple discoloration of the dorsal aspect of the right foot with severe pain with ambulation, patient went for a follow-up with his radiation oncologist after he has had 19 out of 25 radiation and he could not take it anymore because of the discomfort in the rectal area despite the Anusol cream, patient was sent to the ER for evaluation was thought at the beginning the patient had suffered from cellulitis of the right foot however after evaluated the patient on the bedside I could no feel any pulse subsequently an Doppler was obtained to check for pulses and patient does not have any signal just very faint dorsalis pedis and no posterior tibialis on the right and he has faint dorsalis pedis on the left as well as a faint posterior tibialis on the left, I've cold vascular surgery consultation Dr. Sharif came to the bedside and he recommended for the patient to be started on heparin drip , patient also will be started on nothing per mouth overnight he is to go for angiogram tomorrow morning. . 02/10: Patient is status post angiogram this morning with Dr. Sharif. Patient is continued on heparin drip and we will plan to resume Coumadin today. He was previously on 5 mg Monday and 10 mg other days. Patient is complaining of his foot feeling sore. Pulses only by Doppler. 02/11: Patient denies any complaints and feels good except for his right foot feels sore. His hemoglobin A1c is 7.8. His blood sugars have been running in the 200s. Humalog will be scheduled for units with each meal. Patient will be given another dose of Coumadin 10 mg tonight. His INR is at 1.2. Patient does have some fluid overload for which Lasix and potassium added and IV fluids changed to KVO. Patient be transferred to [facility] floor. Patient denies any shortness of breath. Weightbearing status to be clarified by Dr. Sharif. Objective - Vital Signs Vital signs: Vital Signs Temp 97.9 F 02/11/17 11:00 Pulse 75 02/11/17 11:00 Resp 16 02/11/17 11:00 BP 171/77 02/11/17 11:00 Pulse Ox 94 L 02/11/17 11:00 Intake & Output 02/10/17 02/11/17 02/11/17 18:59 06:59 18:59 Intake Total 142.953 7224 500 Output Total 1100 1550 425 Balance -257.608 -45 75 Weight 94.8 kg Intake: IV 1145 Heparin Sodium,Porcine/ 245 D5w Pmx 25,000 unit In Dextrose/Water 1 500ml. bag @ 18 UNITS/KG/HR 35. 59 mls/hr IV .Q14H3M [facility] Rx#:[id number] Sodium Chloride 0.9% 1, 900 000 ml @ 100 mls/hr IV . Q10H [facility] Rx#:[id number] Intake, IV Titration 567.392 500 Amount Heparin Sodium,Porcine/ 292.392 500 D5w Pmx 25,000 unit In Dextrose/Water 1 500ml. bag @ 18 UNITS/KG/HR 35. 59 mls/hr IV .Q14H3M [facility] Rx#:[id number] Sodium Chloride 0.9% 1, 150 000 ml @ 100 mls/hr IV . Q10H [facility] Rx#:[id number] Sodium Chloride 0.9% 1, 125 000 ml As IV .[facility] Rx#:[id number] Oral 275 360 Output: Urine 1100 1550 425 Other: Voiding Method Toilet Urinal Urinal # Voids 1 2 1 - Exam General appearance: average body habitus, no acute distress - EENT Eyes: anicteric sclerae, EOMI, PERRLA, no ptosis, no scleral icterus, normal appearance ENT: NA/AT, normal oropharynx, no thrush Ears: bilateral: normal - Neck Neck: no lymphadenopathy, normal ROM, no rigidity, no stridor, no thyromegaly Carotids: bilateral: upstroke normal Thyroid: bilateral: normal size - Respiratory Respiratory: bilateral: diminished, negative: dullness, rales, rhonchi, wheezing , prolonged expiration - Cardiovascular Rhythm: regular Heart sounds: normal: S1, S2 Abnormal Heart Sounds: systolic murmur, no rub, no S3 Gallop, no S4 Gallop, no click - Gastrointestinal General gastrointestinal: normal bowel sounds, soft, no splenomegaly, no tenderness, no umbilical hernia, no ventral hernia - Integumentary Integumentary: cellulitis (Right foot) - Neurologic Neurologic: CNII-XII intact - Musculoskeletal Musculoskeletal: generalized weakness, strength equal bilaterally - Psychiatric Psychiatric: A&O x's 3, appropriate affect, intact judgment & insight - Labs CBC & Chem 7: 02/11/17 05:46 02/11/17 05:46 Labs: Abnormal Lab Results - Last 24 Hours (Table) 02/10/17 02/10/17 02/10/17 Range/Units 15:11 16:53 21:01 RBC (4.30-5.90) m/uL Hgb (13.0-17.5) gm/dL Hct (39.0-53.0) % MCV (80.0-100.0) fL RDW (11.5-15.5) % Plt Count (150-450) k/uL PT (9.0-12.0) sec APTT 47.9 H (22.0-30.0) sec Glucose (74-99) mg/dL POC Glucose (mg/dL) 213 H 297 H (75-99) mg/dL 02/11/17 02/11/17 02/11/17 Range/Units 05:46 05:46 05:46 RBC 3.39 L (4.30-5.90) m/uL Hgb 11.2 L (13.0-17.5) gm/dL Hct 34.6 L (39.0-53.0) % MCV 102.1 H (80.0-100.0) fL RDW 16.4 H (11.5-15.5) % Plt Count 149 L (150-450) k/uL PT 12.2 H (9.0-12.0) sec APTT 67.4 H (22.0-30.0) sec Glucose 295 H (74-99) mg/dL POC Glucose (mg/dL) (75-99) mg/dL 02/11/17 02/11/17 Range/Units 05:51 11:46 RBC (4.30-5.90) m/uL Hgb (13.0-17.5) gm/dL Hct (39.0-53.0) % MCV (80.0-100.0) fL RDW (11.5-15.5) % Plt Count (150-450) k/uL PT (9.0-12.0) sec APTT (22.0-30.0) sec Glucose (74-99) mg/dL POC Glucose (mg/dL) 293 H 252 H (75-99) mg/dL Microbiology - Last 24 Hours (Table) 02/09/17 15:00 Blood Culture - Preliminary Blood No Growth after 24 hours Assessment and Plan Plan: 1. Right ischemic foot. Start the patient on heparin drip, status post angiogram, patient does have a very faint pulse by Doppler signal on the right and stronger on the left. Vascular surgery consultation from Dr. Sharif, continue simvastatin 40 mg at bedtime for secondary prevention. I did rectal examination for the patient at that time and there was no active bleeding at this time. 2. Stage II rectal cancer post-radiation therapy. We will consult oncology. 3. Paroxysmal atrial fibrillation. Continue Cardizem CD 180 mg orally once every day, digoxin 125 g orally once every day, metoprolol 25 mg orally twice every day. Start the patient on heparin drip. Coumadin 10 mg tonight and recheck INR. 4. Diabetes mellitus type 2. Continue Lantus 22 units of bedtime along with a sliding scale insulin, continue patient on consistent carbohydrate diet, monitor blood glucose before each meal and at bedtime. 5. Hyperlipidemia. Continue simvastatin 40 mg at bedtime. 6. Hypertension and hypertensive cardiovascular disease. Continue patient on metoprolol 25 mg orally twice every day. 7. History of CVA in the past. Patient will need to be on Coumadin for for secondary stroke prevention, continue simvastatin 40 mg at bedtime. 8. History of her recent rectal bleed status post blood transfusion. Resolved. 9. DVT prophylaxis. Patient will need to go back and Coumadin if no contraindication. 10. GI prophylaxis. Pepcid 20 mg orally once every day. 11. Admitted to inpatient. Estimated length of stay 2 midnights. 12. Patient is a full code. Discharge plan: Possibly home tomorrow. Impression and plan of care have been directed as dictated by the signing physician. Agnieszka Kelly nurse practitioner acting as scribe for signing physician.
--- NOTE | 2017-02-11 14:37 | CONS ---
This is a 71-year-old gentleman admitted to [facility] under the care of Dr. Palumbo. Patient has history of discomfort, pain right lower leg for the past two weeks. The patient has history of CA of the rectum. For that patient went for radiation. I was consulted for vascular evaluation. MEDICAL HISTORY: History of diabetes, history of CA of the rectum, history of hypertension, history of atrial fibrillation. On examination, the patient was seen in his room. His neck is supple. Trachea central. Chest clear to auscultation. Abdomen is soft. VASCULAR EXAMINATION: Brachial, radial pulses are present. Femorals are palpable. Posterior tibialis and dorsalis pedis not palpable on the right side. Patient has a faint Doppler on the dorsum aspect of the foot where the posterior tibial has no Doppler. On the left foot, the patient has a Doppler signal posterior tibial and dorsalis pedis. There is some brown induration noted on the right lower extremity with mild cellulitis. IMPRESSION: Peripheral occlusive disease, bilateral, right leg symptomatic. The patient is in sinus rhythm and his Coumadin has been stopped. His INR is stable. Discussed with the family and with Dr. Palumbo. Will arrange for angiogram. In the meantime, we will start him on heparin. Follow with you. Patient will be kept n.p.o. and we will plan to do the angiogram tomorrow. Thank you very much. KOLTON
[2017-02-11 17:26] LABS: Glucose,Whole Blood 214 mg/dL (75-99)
[2017-02-11] MEDS ORDERED: WARFARIN 10 MG TAB PO ONE (18:00)
[2017-02-11 20:25] LABS: Glucose,Whole Blood 207 mg/dL (75-99)
[2017-02-11] MEDS: DOCUSATE 100 MG CAP PO SCH (21:24)
[2017-02-11] MEDS: ATORVASTATIN 20 MG TAB PO SCH (21:24)
[2017-02-11] MEDS: INSULIN GLARGINE 100 UNIT/ML 10 ML VIAL SQ SCH (21:24)
[2017-02-12] MEDS: HYDROcodone/APAP 7.5-325MG 1 EACH TAB PO PRN ×5 (02:04→22:05)
[2017-02-12] MEDS: HEPARIN SODIUM,PORCINE/D5W PMX 25,000 UNIT in DEXTROSE/WATER 1 500ML.BAG IV SCH ×2 (03:26→17:33)
[2017-02-12 07:25] LABS: Glucose,Whole Blood 294 mg/dL (75-99)
[2017-02-12 07:55] LABS: INR 1.5 (<1.1); Prothrombin Time 14.6 sec (9.0-12.0)
[2017-02-12] MEDS: PANTOPRAZOLE 40 MG TABLET PO SCH (08:00)
[2017-02-12] MEDS: FUROSEMIDE 20 MG TAB PO SCH ×2 (08:00→17:07)
[2017-02-12] MEDS: DIGOXIN 125 MCG TAB PO SCH (08:00)
[2017-02-12] MEDS: DOCUSATE 100 MG CAP PO SCH ×2 (08:00→22:03)
[2017-02-12] MEDS: DILTIAZEM CD 180 MG CAP.ER.24H PO SCH (08:00)
[2017-02-12] MEDS: POTASSIUM CHLORIDE ER 10 MEQ TAB.ER.PRT PO SCH ×2 (08:00→22:02)
[2017-02-12] MEDS: INSULIN LISPRO (humaLOG) 300 UNIT/3 ML VIAL SQ SCH ×7 (08:01→21:00)
[2017-02-12] MEDS: METOPROLOL TARTRATE 25 MG TAB PO SCH ×2 (08:01→22:02)
[2017-02-12 08:51] LABS: Anion Gap 5 mmol/L; Blood Urea Nitrogen 15 mg/dL (9-20); Calcium 8.3 mg/dL (8.4-10.2); Carbon Dioxide 27 mmol/L (22-30); Chloride 103 mmol/L (98-107); Glucose 291 mg/dL (74-99); Non-African American GFR(MDRD) >60 (>60 ml/min/1.73 sqM); Potassium 4.8 mmol/L (3.5-5.1); Sodium 135 mmol/L (137-145)
[2017-02-12 09:26] LABS: Basophils % (A) 1 %; CH 32.6; CHCM 32.7; Eosinophils # (A) 0.3 k/uL (0-0.7); Eosinophils % (A) 6 %; HCT 35.1 % (39.0-53.0); HDW 2.93; HGB 11.9 gm/dL (13.0-17.5); Luc # (Auto) 0.14; Luc % (Auto) 3; Lymphocytes # (A) 0.5 k/uL (1.0-4.8); Lymphocytes % (A) 10 %; MCHC 33.9 g/dL (31.0-37.0); MCV 100.3 fL (80.0-100.0); Macrocytosis Slight; Mean Platelet Volume 8.6; Monocytes # (A) 0.4 k/uL (0-1.0); Monocytes % (A) 9 %; Neutrophils # (A) 3.4 k/uL (1.3-7.7); Neutrophils % (A) 72 %; RDW 15.8 % (11.5-15.5); WBC 4.7 k/uL (3.8-10.6); WBC (Perox) 4.81
--- NOTE | 2017-02-12 09:29 | P.PCN ---
Preoperative Diagnosis: Postoperative Diagnosis: Procedure(s) Performed: Implants: Indications for Procedure: Operative Findings: Description of Procedure: Preoperative diagnoses is ischemic right foot Aortogram with runoff Patient was brought to the [facility] right and left groin were prepped and draped applied usual manner 1% lidocaine was infiltrated left groin micropuncture was introduced to the left common femoral artery micropuncture guidewire was passed and 4-Citizen Of [place] dilator advanced on the top of the guidewire then we passed a regular guidewire and 5-Citizen Of [place] sheath was advanced on the top of the glide wire Pigtail catheter advanced on the top of the Glidewire which was parked at the renal level hooked to the power injector aortogram was performed both renal arteries were patent aorta was patent and both common iliac were visualized After that pigtail catheter was parked above the both iliacs and run off was performed Common and external iliac artery bilateral patent Femoral artery both femoral artery and profunda was visualized Popliteal artery and popliteal artery were visualized and was patent Tibioperoneal trunk on the left side was patent then we selected the right common iliac artery and guidewire was passed and the catheter was parked at the popliteal area and the right lower extremity was visualized anterior tibial posterior tibial and peroneal was patent proximally at the ankle anterior tibial posterior tibial was occluded and there were some collaterals noted for the foot catheter was removed pressure was held and patient was sent to the recovery room
[2017-02-12] MEDS: SODIUM CHLORIDE 0.9% 1,000 ML IV SCH ×2 (11:06→17:07)
[2017-02-12] MEDS: AMMONIUM LACTATE 12% LOTION 225 GM BTL TOPICAL SCH ×2 (11:31→22:06)
[2017-02-12 11:34] LABS: Glucose,Whole Blood 246 mg/dL (75-99)
[2017-02-12 17:17] LABS: Glucose,Whole Blood 105 mg/dL (75-99)
[2017-02-12] MEDS ORDERED: WARFARIN 7.5 MG TAB PO ONE (18:00)
[2017-02-12 20:59] LABS: Glucose,Whole Blood 118 mg/dL (75-99)
[2017-02-12] MEDS: ATORVASTATIN 20 MG TAB PO SCH (22:02)
[2017-02-12] MEDS: INSULIN GLARGINE 100 UNIT/ML 10 ML VIAL SQ SCH (22:03)
[2017-02-12 22:48] VITALS: RESP 16
[2017-02-13] MEDS: HEPARIN SODIUM,PORCINE/D5W PMX 25,000 UNIT in DEXTROSE/WATER 1 500ML.BAG IV SCH (06:12)
[2017-02-13] MEDS: HYDROcodone/APAP 7.5-325MG 1 EACH TAB PO PRN ×3 (06:15→14:20)
[2017-02-13 07:30] LABS: INR 2.2 (<1.1); Partial Thromboplastin Time 75.6 sec (22.0-30.0); Prothrombin Time 21.3 sec (9.0-12.0)
[2017-02-13 07:39] LABS: Glucose,Whole Blood 227 mg/dL (75-99)
[2017-02-13] MEDS: METOPROLOL TARTRATE 25 MG TAB PO SCH (08:11)
[2017-02-13] MEDS: PANTOPRAZOLE 40 MG TABLET PO SCH (08:11)
[2017-02-13] MEDS: FUROSEMIDE 20 MG TAB PO SCH (08:11)
[2017-02-13] MEDS: DIGOXIN 125 MCG TAB PO SCH (08:12)
[2017-02-13] MEDS: DILTIAZEM CD 180 MG CAP.ER.24H PO SCH (08:12)
[2017-02-13] MEDS: POTASSIUM CHLORIDE ER 10 MEQ TAB.ER.PRT PO SCH (08:12)
[2017-02-13] MEDS: DOCUSATE 100 MG CAP PO SCH (08:12)
[2017-02-13] MEDS: INSULIN LISPRO (humaLOG) 300 UNIT/3 ML VIAL SQ SCH ×4 (08:12→12:39)
[2017-02-13] MEDS: AMMONIUM LACTATE 12% LOTION 225 GM BTL TOPICAL SCH (08:13)
[2017-02-13 08:21] VITALS: BP 133/72; PULSE 70; TEMP 97.7
[2017-02-13 11:42] LABS: Glucose,Whole Blood 165 mg/dL (75-99)
--- NOTE | 2017-02-14 11:33 | P.PN ---
Subjective This is a 71-year-old male one of Dr. Alvaro Ponce with a previous medical history significant for paroxysmal atrial fibrillation, diabetes mellitus type 2 with diabetic neuropathy, history of rectal cancer stage II diagnosed back in October 2015 followed by radiation therapy under the care of Dr. Hobson apparently he was doing fine up until 14 days ago when he developed to have an increased swelling and purple discoloration of the dorsal aspect of the right foot with severe pain with ambulation, patient went for a follow-up with his radiation oncologist after he has had 19 out of 25 radiation and he could not take it anymore because of the discomfort in the rectal area despite the Anusol cream, patient was sent to the ER for evaluation was thought at the beginning the patient had suffered from cellulitis of the right foot however after evaluated the patient on the bedside I could no feel any pulse subsequently an Doppler was obtained to check for pulses and patient does not have any signal just very faint dorsalis pedis and no posterior tibialis on the right and he has faint dorsalis pedis on the left as well as a faint posterior tibialis on the left, I've cold vascular surgery consultation Dr. Sharif came to the bedside and he recommended for the patient to be started on heparin drip , patient also will be started on nothing per mouth overnight he is to go for angiogram tomorrow morning. . 02/10: Patient is status post angiogram this morning with Dr. Sharif. Patient is continued on heparin drip and we will plan to resume Coumadin today. He was previously on 5 mg Monday and 10 mg other days. Patient is complaining of his foot feeling sore. Pulses only by Doppler. 02/11: Patient denies any complaints and feels good except for his right foot feels sore. His hemoglobin A1c is 7.8. His blood sugars have been running in the 200s. Humalog will be scheduled for units with each meal. Patient will be given another dose of Coumadin 10 mg tonight. His INR is at 1.2. Patient does have some fluid overload for which Lasix and potassium added and IV fluids changed to KVO. Patient be transferred to [facility] floor. Patient denies any shortness of breath. Weightbearing status to be clarified by Dr. Sharif. 02/12: Patient continues to have soreness in the right foot. Unable get a Doppler pulse in the dorsalis pedis. Patient does have a crack in the bottom of the foot which is where his pain is located. Lac-Hydrin has been ordered. INR today is at 1.5 and patient will be given Coumadin 7.5 tonight. Possible discharge by tomorrow Objective - Vital Signs Vital signs: Vital Signs Temp 98 F 02/12/17 07:00 Pulse 64 02/12/17 07:00 Resp 18 02/12/17 07:00 BP 137/61 02/12/17 07:00 Pulse Ox 96 02/12/17 07:00 Intake & Output 02/11/17 02/12/17 02/12/17 18:59 06:59 18:59 Intake Total 500 740 272.264 Output Total 425 850 Balance 75 -110 272.264 Weight 83.5 kg Intake: Intake, IV Titration 500 500 272.264 Amount Heparin Sodium,Porcine/ 500 500 272.264 D5w Pmx 25,000 unit In Dextrose/Water 1 500ml. bag @ 18 UNITS/KG/HR 35. 59 mls/hr IV .Q14H3M [facility] Rx#:[id number] Oral 240 Output: Urine 425 850 Other: Voiding Method Urinal Urinal Urinal # Voids 2 2 # Bowel Movements 1 - Exam General appearance: average body habitus, no acute distress - EENT Eyes: anicteric sclerae, EOMI, PERRLA, no ptosis, no scleral icterus, normal appearance ENT: NA/AT, normal oropharynx, no thrush Ears: bilateral: normal - Neck Neck: no lymphadenopathy, normal ROM, no rigidity, no stridor, no thyromegaly Carotids: bilateral: upstroke normal Thyroid: bilateral: normal size - Respiratory Respiratory: bilateral: diminished, negative: dullness, rales, rhonchi, wheezing , prolonged expiration - Cardiovascular Rhythm: regular Heart sounds: normal: S1, S2 Abnormal Heart Sounds: systolic murmur, no rub, no S3 Gallop, no S4 Gallop, no click - Gastrointestinal General gastrointestinal: normal bowel sounds, soft, no splenomegaly, no tenderness, no umbilical hernia, no ventral hernia - Integumentary Integumentary: cellulitis (Right foot) - Neurologic Neurologic: CNII-XII intact - Musculoskeletal Musculoskeletal: generalized weakness, strength equal bilaterally - Psychiatric Psychiatric: A&O x's 3, appropriate affect, intact judgment & insight - Labs CBC & Chem 7: 02/12/17 07:05 02/12/17 07:05 Labs: Abnormal Lab Results - Last 24 Hours (Table) 02/11/17 02/11/17 02/11/17 Range/Units 11:46 17:24 20:23 RBC (4.30-5.90) m/uL Hgb (13.0-17.5) gm/dL Hct (39.0-53.0) % MCV (80.0-100.0) fL RDW (11.5-15.5) % Lymphocytes # (1.0-4.8) k/uL PT (9.0-12.0) sec APTT (22.0-30.0) sec Sodium (137-145) mmol/L Glucose (74-99) mg/dL POC Glucose (mg/dL) 252 H 214 H 207 H (75-99) mg/dL Calcium (8.4-10.2) mg/dL 02/12/17 02/12/17 02/12/17 Range/Units 07:05 07:05 07:05 RBC 3.50 L (4.30-5.90) m/uL Hgb 11.9 L (13.0-17.5) gm/dL Hct 35.1 L (39.0-53.0) % MCV 100.3 H (80.0-100.0) fL RDW 15.8 H (11.5-15.5) % Lymphocytes # 0.5 L (1.0-4.8) k/uL PT 14.6 H (9.0-12.0) sec APTT (22.0-30.0) sec Sodium 135 L (137-145) mmol/L Glucose 291 H (74-99) mg/dL POC Glucose (mg/dL) (75-99) mg/dL Calcium 8.3 L (8.4-10.2) mg/dL 02/12/17 02/12/17 Range/Units 07:05 07:22 RBC (4.30-5.90) m/uL Hgb (13.0-17.5) gm/dL Hct (39.0-53.0) % MCV (80.0-100.0) fL RDW (11.5-15.5) % Lymphocytes # (1.0-4.8) k/uL PT (9.0-12.0) sec APTT 62.7 H (22.0-30.0) sec Sodium (137-145) mmol/L Glucose (74-99) mg/dL POC Glucose (mg/dL) 294 H (75-99) mg/dL Calcium (8.4-10.2) mg/dL Microbiology - Last 24 Hours (Table) 02/09/17 15:00 Blood Culture - Preliminary Blood No Growth after 48 hours Assessment and Plan Plan: 1. Right ischemic foot. Start the patient on heparin drip, status post angiogram, patient does have a very faint pulse by Doppler signal on the right and stronger on the left. Vascular surgery consultation from Dr. Sharif, continue simvastatin 40 mg at bedtime for secondary prevention. I did rectal examination for the patient at that time and there was no active bleeding at this time. Lac-Hydrin added for dry skin. 2. Stage II rectal cancer post-radiation therapy. We will consult oncology. 3. Paroxysmal atrial fibrillation. Continue Cardizem CD 180 mg orally once every day, digoxin 125 g orally once every day, metoprolol 25 mg orally twice every day. Start the patient on heparin drip. Coumadin 10 mg tonight and recheck INR. 4. Diabetes mellitus type 2. Continue Lantus 22 units of bedtime along with a sliding scale insulin, continue patient on consistent carbohydrate diet, monitor blood glucose before each meal and at bedtime. 5. Hyperlipidemia. Continue simvastatin 40 mg at bedtime. 6. Hypertension and hypertensive cardiovascular disease. Continue patient on metoprolol 25 mg orally twice every day. 7. History of CVA in the past. Patient will need to be on Coumadin for for secondary stroke prevention, continue simvastatin 40 mg at bedtime. 8. History of her recent rectal bleed status post blood transfusion. Resolved. 9. DVT prophylaxis. Patient will need to go back and Coumadin if no contraindication. 10. GI prophylaxis. Pepcid 20 mg orally once every day. 11. Admitted to inpatient. Estimated length of stay 2 midnights. 12. Patient is a full code. Discharge plan: Possibly home tomorrow. Impression and plan of care have been directed as dictated by the signing physician. Agnieszka Kelly nurse practitioner acting as scribe for signing physician.
--- NOTE | 2017-02-14 11:34 | P.DS ---
Providers Date of admission: 02/09/17 15:58 Expected date of discharge: 02/13/17 Attending physician: Lynn Palumbo Consults: 02/09/17 17:52 Consult Physician Routine Consulting Provider: Girihs Sharif Consult Reason/Comments: ischemic foot Do you want consulting provider notified?: Already Contacted Primary care physician: Kris Marlownybethel [facility] Course: This is a 71-year-old male one of Dr. Alvaro Ponce with a previous medical history significant for paroxysmal atrial fibrillation, diabetes mellitus type 2 with diabetic neuropathy, history of rectal cancer stage II diagnosed back in October 2015 followed by radiation therapy under the care of Dr. Hobson apparently he was doing fine up until 14 days ago when he developed to have an increased swelling and purple discoloration of the dorsal aspect of the right foot with severe pain with ambulation, patient went for a follow-up with his radiation oncologist after he has had 19 out of 25 radiation and he could not take it anymore because of the discomfort in the rectal area despite the Anusol cream, patient was sent to the ER for evaluation was thought at the beginning the patient had suffered from cellulitis of the right foot however after evaluated the patient on the bedside I could no feel any pulse subsequently an Doppler was obtained to check for pulses and patient does not have any signal just very faint dorsalis pedis and no posterior tibialis on the right and he has faint dorsalis pedis on the left as well as a faint posterior tibialis on the left, I've cold vascular surgery consultation Dr. Sharif came to the bedside and he recommended for the patient to be started on heparin drip , patient also will be started on nothing per mouth overnight he is to go for angiogram tomorrow morning. . 02/10: Patient is status post angiogram this morning with Dr. Sharif. Patient is continued on heparin drip and we will plan to resume Coumadin today. He was previously on 5 mg Monday and 10 mg other days. Patient is complaining of his foot feeling sore. Pulses only by Doppler. 02/11: Patient denies any complaints and feels good except for his right foot feels sore. His hemoglobin A1c is 7.8. His blood sugars have been running in the 200s. Humalog will be scheduled for units with each meal. Patient will be given another dose of Coumadin 10 mg tonight. His INR is at 1.2. Patient does have some fluid overload for which Lasix and potassium added and IV fluids changed to KVO. Patient be transferred to [facility] floor. Patient denies any shortness of breath. Weightbearing status to be clarified by Dr. Sharif. 02/12: Patient continues to have soreness in the right foot. Unable get a Doppler pulse in the dorsalis pedis. Patient does have a crack in the bottom of the foot which is where his pain is located. Lac-Hydrin has been ordered. INR today is at 1.5 and patient will be given Coumadin 7.5 tonight. Possible discharge by tomorrow 02/13: Repeat INR is 2.2. According to Dr. Sharif patient can weight-bear as tolerated. Physical therapy is recommended a left platform walker with wheels which will be ordered in case management making arrangements. Patient will be discharged home today in stable condition. Discharge diagnoses: 1. Right ischemic foot due to severe peripheral artery disease 2. Stage II rectal cancer post-radiation therapy. 3. Paroxysmal atrial fibrillation. 4. Diabetes mellitus type 2. 5. Hyperlipidemia. 6. Hypertension and hypertensive cardiovascular disease. 7. History of CVA in the past. 8. History of her recent rectal bleed status post blood transfusion. Resolved. Discharge plan: home Impression and plan of care have been directed as dictated by the signing physician. Agnieszka Kelly nurse practitioner acting as scribe for signing physician. Patient Condition at Discharge: Good Plan - Discharge Summary New Discharge Prescriptions: New Warfarin Sodium [Coumadin] 7.5 mg PO DAILY #30 tablet Continue Insulin Glargine [Lantus] 22 unit SQ HS@2200 Insulin Aspart [NovoLOG] See Protocol SQ AC-TID Simvastatin [Zocor] 40 mg PO HS Indapamide [Lozol] 1.25 mg PO QAM Digoxin [Digitek] 125 mcg PO QAM Diclofenac Sodium [Voltaren] 75 mg PO BID #0 Diltiazem Cd [Cardizem CD] 180 mg PO QAM HYDROcodone/APAP 7.5-325MG [[place] 7.5-325] 1 tab PO Q4H PRN PRN Reason: Pain Metoprolol Tartrate [Lopressor] 25 mg PO BID Furosemide [Lasix] 20 mg PO QAM Discharge Medication List Digoxin [Digitek] 125 mcg PO QAM 11/08/16 [History] Indapamide [Lozol] 1.25 mg PO QAM 11/08/16 [History] Insulin Aspart [NovoLOG] See Protocol SQ AC-TID 11/08/16 [History] Insulin Glargine [Lantus] 22 unit SQ HS@2200 11/08/16 [History] Simvastatin [Zocor] 40 mg PO HS 11/08/16 [History] Diclofenac Sodium [Voltaren] 75 mg PO BID #0 01/11/17 [Rx] Diltiazem Cd [Cardizem CD] 180 mg PO QAM 02/09/17 [History] Furosemide [Lasix] 20 mg PO QAM 02/09/17 [History] HYDROcodone/APAP 7.5-325MG [[place] 7.5-325] 1 tab PO Q4H PRN 02/09/17 [History] Metoprolol Tartrate [Lopressor] 25 mg PO BID 02/09/17 [History] Warfarin Sodium [Coumadin] 7.5 mg PO DAILY #30 tablet 02/13/17 [Rx] Follow up Appointment(s)/Referral(s): Ana Fajardo MD [STAFF PHYSICIAN] - 04/25/17 9:45 am Girish Sharif MD [STAFF PHYSICIAN] - 03/15/17 10:00 am Kris John MD [Primary Care Provider] - 1 Week (Patient to call Dr. John's office Monday to schedule follow up appointment. The office is closed at time of discharge.) Patient Instructions/Handouts: Warfarin (By mouth), Cellulitis (DC), Peripheral Vascular Disease (DC), Angiography (DC) Activity/Diet/Wound Care/Special Instructions: Activity-Weight bearing as tolerated. Discharge Disposition: HOME SELF-CARE
--- NOTE | 2017-02-15 09:41 | IR ---
EXAMINATION TYPE: IR angio abdominal w runoff DATE OF EXAM: 02/15/2017 COMPARISON: NONE HISTORY: Peripheral vascular occlusive disease. Fluoroscopy was provided to the referring clinician. See dictated report from cardiology.
== END 2017-02-13 14:30 | disposition home or self-care (01) | DRG 300 ==
LOC: EC 14:02 → 5ONC 15:58 → 6SEL 02-10 07:45 → 5MS5E 02-11 10:52
PROVIDERS: ADMIT Internal Medicine; ATTEND Internal Medicine
PROC: B41DYZZ Fluoroscopy of Aorta and Bilateral Lower Extremity Arteries using Other Contrast (ICD-10-PCS; principal; 2017-02-12)
DX: E11.51 Type 2 diabetes mellitus with diabetic peripheral angiopathy without gangrene (principal); C20 Malignant neoplasm of rectum; E11.40 Type 2 diabetes mellitus with diabetic neuropathy, unspecified; I11.9 Hypertensive heart disease without heart failure; E78.5 Hyperlipidemia, unspecified; E87.70 Fluid overload, unspecified; F17.200 Nicotine dependence, unspecified, uncomplicated; I48.0 Paroxysmal atrial fibrillation; M19.90 Unspecified osteoarthritis, unspecified site; Z79.4 Long term (current) use of insulin; Z79.899 Other long term (current) drug therapy; Z82.49 Family history of ischemic heart disease and other diseases of the circulatory system; Z80.6 Family history of leukemia; Z80.1 Family history of malignant neoplasm of trachea, bronchus and lung; Z80.0 Family history of malignant neoplasm of digestive organs
CPT/HCPCS: 36200; 36415; 75625; 75716; 80048; 80053; 80162; 81003; 83036; 83605; 83735; 85025; 85027; 85610; 85730; 87040

== ENCOUNTER → 2017-02-15 | Outpatient (CLI) | payer MEDICARE ==
[2017-02-15 15:07] LABS: CH 32.6; CHCM 33.1; HCT 40.2 % (39.0-53.0); HDW 3.08; HGB 13.7 gm/dL (13.0-17.5); MCH 33.6 pg (25.0-35.0); MCHC 34.1 g/dL (31.0-37.0); MCV 98.8 fL (80.0-100.0); Macrocytosis Slight; Mean Platelet Volume 8.3; RBC 4.07 m/uL (4.30-5.90); RDW 15.6 % (11.5-15.5)
[2017-02-15 15:10] LABS: INR 2.9 (<1.1); Prothrombin Time 27.5 sec (9.0-12.0)
== END | disposition home or self-care (01) ==
LOC: LABWHC1 14:41
PROVIDERS: ATTEND Family Medicine
DX: Z51.81 Encounter for therapeutic drug level monitoring (principal); Z79.01 Long term (current) use of anticoagulants
CPT/HCPCS: 36415; 85027; 85610

== ENCOUNTER → 2017-05-27 | Outpatient (CLI) | payer MEDICARE ==
--- NOTE | 2017-05-28 20:10 | PE ---
EXAMINATION TYPE: PET CT fusion skull to thigh DATE OF EXAM: 05/27/2017 CLINICAL HISTORY: 72-year-old male history of rectal cancer diagnosed on 11/10/2016. Patient status po st radiation therapy. TECHNIQUE: Following the intravenous administration of 15.2 mCi of F-18 FDG, whole body images are performed from the skull base to the midthigh. Images are reviewed on the computer in the coronal, a xial, and sagittal planes. Reconstructed rotating images are created on independent workstation and reviewed on the computer. A localization and attenuation correction CT is performed in conjunction with the PET scan. Glucose level: 83 mg/dL CTDI: 4.63 mGy DLP: 466.15 mGy-cm COMPARISON: CT chest 11/29/2016 and abdomen 11/14/2016 FINDINGS: PET: Physiologic FDG uptake within the neck. Chronic small to moderate left pleural effusion shows no discrete FDG uptake. There is smooth pleural based thickening and some strandy atelectasis/scarring in the left lower lobe and some probable [place] y rounded atelectasis that shows no discrete FDG uptake measuring 2.1 cm, and axial image 128. Otherwise, physiologic FDG uptake within the chest. There is vague nodularity in the left hepatic lobe that shows borderline moderate increased FDG uptak e, max SUV 3.6 where as the liver average is 2.4. Ametabolic 1.2 cm lateral cortical cyst on the left kidney. There is focal intense hypermetabolism along the rectosigmoid junction without discrete CT abnormalit y, axial image 244. Max SUV 7.8. Mild presacral edema likely secondary to post radiation therapy dupree ge. Scattered degenerative tracer uptake such as at the right sternoclavicular joint and right greater th an left greater trochanters which may reflect gluteal insertional tendinosis or trochanteric bursitis . Foci of uptake at the right wrist in a right antecubital fossa likely relating to the tracer injectio n. ATTENUATION CORRECTION CT: Paranasal sinuses and mastoid air cells appear clear. No cervical lymphadenopathy. The heart is upper limits of normal in size. Coronary vessel calcifications are present and are in ma rker for coronary artery disease. Ascending aorta is ectatic and 3.8 cm. Mild atherosclerotic arch c alcifications. Conventional arch vessel branching anatomy. Borderline to mildly enlarged caliber to the main right and left pulmonary arteries and 2.5 x 2.6 cm, respectively, suggesting underlying pulm onary arterial hypertension. No thoracic lymphadenopathy seen. Chronic appearing small to moderate le ft pleural effusion. No consolidation. Cholelithiasis, hilar splenule, prior ileocolonic anastomosis with moderate stool burden, a tiny fatt y umbilical hernia. Mild atherosclerotic calcifications throughout the abdominal aorta and iliac ivette angelia. Pelvic phleboliths. Prostate gland measures 4.1 cm wide. Bones: Mild degenerative changes at the hips and SI joints as well as within the lower lumbar spine. Endplate spondylosis mid to lower thoracic spine. Some degenerative changes of the shoulders. IMPRESSION: 1. Focal intense hypermetabolism at the rectosigmoid junction. Residual/recurrent neoplasm difficult to exclude based on the focality and degree of uptake. Consider direct visualization. 2. Vague nodularity involving the left hepatic lobe on the PET images shows borderline moderate uptak e. Heterogeneous uptake can be seen as a normal variation. However, as this is localized to the left lobe, follow-up recommended to exclude the possibility of very early hepatic metastases. 3. Incidental: Chronic left pleural effusion with suggestion of some early rounded atelectasis at the left base, possible underlying pulmonary arterial hypertension, cholelithiasis, and prior ileocoloni c anastomosis.
== END | disposition home or self-care (01) ==
LOC: RADPETMAIN 14:07
PROVIDERS: ATTEND Radiology Radiation Oncology
DX: C20 Malignant neoplasm of rectum (principal)
CPT/HCPCS: 78815; A9552

== ENCOUNTER 2017-12-16 18:38 | Emergency (ER) | payer MEDICARE ==
[2017-12-16 19:06] VITALS: BP 127/65; PULSE 71; RESP 16; TEMP 97.7
[2017-12-16 20:12] LABS: Appearance,Urine Turbid (Clear); Bacteria,Urine Moderate /hpf; Bilirubin,Urine Negative (Negative); Blood,Urine Small (Negative); Budding Yeast,Urine Many /hpf; Color,Urine Yellow; Glucose,Urine (UA) Negative (Negative); Ketones,Urine Negative (Negative); Leukocyte Esterase,Urine Large (Negative); Mucus,Urine Rare /hpf; Nitrite,Urine Positive (Negative); PH, Urine 6.5 (5.0-8.0); Protein,Urine 1+ (Negative); RBC,Urine 8 /hpf (0-5); Specific Gravity,Urine 1.014 (1.001-1.035); Urobilinogen,Urine <2.0 mg/dL (<2.0); WBC,Urine >182 /hpf (0-5)
[2017-12-16] MEDS ORDERED: PHENAZOPYRIDINE 200 MG TAB PO STA (20:44)
[2017-12-16] MEDS ORDERED: CIPROFLOXACIN HCL 500 MG TAB PO STA (20:44)
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
== END 2017-12-16 20:58 | disposition home or self-care (01) ==
LOC: EC 18:38
DX: N39.0 Urinary tract infection, site not specified (principal); E78.5 Hyperlipidemia, unspecified; I10 Essential (primary) hypertension; I48.91 Unspecified atrial fibrillation; E11.9 Type 2 diabetes mellitus without complications; Z87.891 Personal history of nicotine dependence; Z79.01 Long term (current) use of anticoagulants; Z79.4 Long term (current) use of insulin; Z79.899 Other long term (current) drug therapy; Z89.112 Acquired absence of left hand; Z89.412 Acquired absence of left great toe; Z89.511 Acquired absence of right leg below knee; Z89.512 Acquired absence of left leg below knee; Z86.010 Personal history of colon polyps; Z85.038 Personal history of other malignant neoplasm of large intestine; Z90.49 Acquired absence of other specified parts of digestive tract; Z93.3 Colostomy status
CPT/HCPCS: 81001; 87077; 87086; 87186; 99283

== ENCOUNTER → 2018-02-05 | Outpatient (CLI) | payer MEDICARE | END | disposition home or self-care (01) | LOC: LABWHC1 11:56 | PROVIDERS: ATTEND Colon & Rectal Surgery | DX: Z08 Encounter for follow-up examination after completed treatment for malignant neoplasm (principal); Z85.048 Personal history of other malignant neoplasm of rectum, rectosigmoid junction, and anus | CPT/HCPCS: 36415; 82378 ==

== ENCOUNTER 2018-07-04 12:24 | Day surgery (SDC) | payer MEDICARE ==
[2018-06-29 09:54] VITALS: BMI 22.4
[2018-07-04] MEDS ORDERED: ASPIRIN 325 MG TAB ONE (12:47)
[2018-07-04 12:54] LABS: Glucose,Whole Blood 85 mg/dL (75-99)
[2018-07-04] MEDS ORDERED: SODIUM CHLORIDE 0.9% 1,000 ML IV ONE (12:57)
[2018-07-04 13:06] LABS: INR 1.1 (<1.2); Prothrombin Time 10.7 sec (9.0-12.0)
[2018-07-04 15:55] LABS: Glucose,Whole Blood 83 mg/dL (75-99)
[2018-07-04] MEDS: fentaNYL (PF) 50 MCG/ML 2 ML AMP IVP ONE ×2 (16:20→17:25)
[2018-07-04] MEDS: MIDAZOLAM 2 MG/2 ML VIAL IVP ONE ×2 (16:20→16:33)
[2018-07-04] MEDS ORDERED: LIDOCAINE 1% INJ 10MG/ML (20 ML MDV) SQ ONE (16:23)
[2018-07-04] MEDS ORDERED: HEPARIN SODIUM 1,000 UN/ML (10ML VL) IV ONE (16:30)
[2018-07-04] MEDS ORDERED: NITROGLYCERIN 1000MCG/10ML SYRINGE INTRAARTER ONE (17:12)
[2018-07-04] MEDS ORDERED: niCARdipine Syringe (1,000 mcg/10 mL) INTRAARTER ONE (17:12)
[2018-07-04] MEDS ORDERED: IOPAMIDOL-250 100ML BTL INTRAARTER ONE (17:20)
[2018-07-04] MEDS ORDERED: HYDROcodone/APAP 7.5-325MG 1 EACH TAB PO PRN (17:25)
[2018-07-04] MEDS ORDERED: CLOPIDOGREL 75 MG TAB PO ONE (17:30)
[2018-07-04] MEDS ORDERED: SODIUM CHLORIDE 0.9% 1,000 ML IV SCH (17:30)
[2018-07-04 17:47] LABS: Glucose,Whole Blood 71 mg/dL (75-99)
[2018-07-04] MEDS ORDERED: ATORVASTATIN 20 MG TAB PO SCH (21:00)
--- NOTE | 2018-07-04 21:17 | LTR ---
July 04, [address] John: Mr. Bacilio Cotton underwent successful balloon angioplasty of the left popliteal artery with good angiographic results and without any complication. Thank you for allowing me to participate in his care and please do not hesitate to call if you have any question or concern. MMCATHYL / IJN: [id number] /
[2018-07-04] MEDS: METOPROLOL TARTRATE 25 MG TAB PO SCH (21:52)
[2018-07-04] MEDS ORDERED: INSULIN DETEMIR 100 UNIT/ML 10 ML VIAL SQ SCH (22:00)
[2018-07-05 06:17] LABS: Glucose,Whole Blood 303 mg/dL (75-99)
[2018-07-05 07:23] LABS: Basophils % (A) 1 %; Eosinophils # (A) 0.2 k/uL (0-0.7); Eosinophils % (A) 6 %; HCT 39.3 % (39.0-53.0); HGB 12.4 gm/dL (13.0-17.5); Lymphocytes # (A) 0.5 k/uL (1.0-4.8); Lymphocytes % (A) 13 %; MCH 29.8 pg (25.0-35.0); MCHC 31.6 g/dL (31.0-37.0); MCV 94.4 fL (80.0-100.0); Mean Platelet Volume 7.4; Monocytes # (A) 0.4 k/uL (0-1.0); Monocytes % (A) 10 %; Neutrophils # (A) 2.5 k/uL (1.3-7.7); Neutrophils % (A) 69 %; Platelet Count 172 k/uL (150-450); RBC 4.16 m/uL (4.30-5.90); RDW 14.9 % (11.5-15.5); WBC 3.6 k/uL (3.8-10.6)
[2018-07-05 07:37] LABS: Calcium 8.7 mg/dL (8.4-10.2); Potassium 4.6 mmol/L (3.5-5.1)
[2018-07-05 07:56] VITALS: BP 147/74; PULSE 81; RESP 17; TEMP 97.3
[2018-07-05] MEDS: METOPROLOL TARTRATE 25 MG TAB PO SCH (07:57)
[2018-07-05] MEDS ORDERED: CLOPIDOGREL 75 MG TAB PO SCH (09:00)
[2018-07-05] MEDS ORDERED: ASPIRIN 81 MG PO SCH (09:00)
[2018-07-05] MEDS ORDERED: DILTIAZEM CD 180 MG CAP.ER.24H PO SCH (09:00)
[2018-07-05] MEDS ORDERED: INDAPAMIDE 1.25 MG TAB PO SCH (09:00)
--- NOTE | 2018-07-05 09:30 | AN ---
ANGIOGRAPHY REPORT DATE OF SERVICE: July 04, 2018 PERFORMING PHYSICIAN: Nabeel Clement MD, healthcare or medical. PROCEDURE PERFORMED: 1. Selective left rawah-exz-kwno angiogram. 2. Selective left popliteal angiogram. 3. Atherectomy of the left popliteal using the orbital atherectomy device from [facility]. 4. Successful balloon angioplasty of the left popliteal using 6 mm x 40 mm impact drug coated balloon with an excellent angiographic results and reduction of stenosis from 70% to 0%. INDICATION: This is a pleasant 73-year-old gentleman who sees Dr. Sharif in the office as an outpatient as well as sees Dr. Fajardo in our practice, who was experiencing evidence of critical limb ischemia with nonhealing ulcer involving the left toe. He underwent a peripheral angiogram by Dr. Sharif 2 months ago and that revealed severe lesion involving the left popliteal as well as occluded left anterior tibial artery. He was brought today to undergo an intervention of the left popliteal. APPROACH: Right common femoral artery. COMPLICATION: None. LEVEL OF SEDATION: Moderate with sedation length of 61 minutes. PROCEDURE DESCRIPTION: After obtaining informed consent, the patient was brought to cardiac helper animal laboratory. The right common femoral artery was cannulated using micropuncture technique and a micropuncture wire passed easily. Then I placed a 6-[place] sheath 11 cm in the right common femoral artery. After that, I did start anticoagulation using heparin and the patient was given a weight-based heparin. After that, I did select the left SFA using 0.035 [employer] Advantage with the backup support of 5-[place] rim catheter. I did after that I exchange my 11 cm 6-[place] sheath into 70 cm 6-[place] sheath using .035 [employer] Advantage wire. The tip of the long sheath was positioned in the mid left SFA. After that, I did selective left efbeb-too-akgl angiogram and selective left popliteal angiogram as well. After that I did atherectomy of the left popliteal using the orbital atherectomy device from [facility] where I did use 1.25 mm [place]. After that I did balloon angioplasty initially using 5 mm and then 6 mm drug-coated balloon with the following angiogram showed excellent angiographic results with reduction of stenosis from 70% to 0%. The procedure was completed without any complication. After that, I did exchange my long sheath into short sheath using a 035 advantage wire. I did close the groin using Perclose device. I did achieve hemostasis by the end. POSTPROCEDURE MANAGEMENT: 1. Dual anti-platelet therapy. 2. Risk factor modifications. 3. Follow up with the patient. JOSEL / IJN: [id number] /
--- NOTE | 2018-07-05 11:51 | DS ---
DISCHARGE SUMMARY ADMISSION DATE: July 04, 2018. DISCHARGE DATE: July 05, 2018 BRIEF HISTORY: This is a pleasant 73-year-old gentleman who sees Dr. Sharif as an outpatient and sees Dr. Fajardo as an outpatient, was admitted to the hospital and underwent successful atherectomy and balloon angioplasty of the left popliteal for critical limb ischemia. The procedure was performed from the right groin which is soft and nontender and without any bruises. The patient is going to be discharged home on dual anti-platelet therapy and I will follow up with the patient in the office in a week. MMODL / IJN: [id number] /
--- NOTE | 2018-07-06 12:21 | IR ---
Fluoroscopy HISTORY: Peripheral vascular occlusive disease 23.6 minutes fluoroscopy time supplied to the referring clinician. 540 intraoperative C-arm images d ocument the procedure. See dictated report from cardiology.
== END 2018-07-05 10:34 | disposition home or self-care (01) ==
LOC: CATHCVL 12:24 → 3SCARD 19:42 → CATHCVL 07-05 10:34
PROVIDERS: ATTEND Internal Medicine Interventional Cardiology
DX: I99.8 Other disorder of circulatory system (principal); I48.1 Persistent atrial fibrillation; I10 Essential (primary) hypertension; E11.51 Type 2 diabetes mellitus with diabetic peripheral angiopathy without gangrene; F17.290 Nicotine dependence, other tobacco product, uncomplicated; Z79.01 Long term (current) use of anticoagulants; Z79.4 Long term (current) use of insulin; Z79.899 Other long term (current) drug therapy
CPT/HCPCS: 37225; 80048; 85025; 85610; C1894 ×2; C1769 ×7; C1714; C1725; C2623; C1760; J2250; J2001; J3010; J1644; Q9966

== ENCOUNTER → 2018-12-19 | Outpatient (CLI) | payer MEDICARE ==
[2018-12-19 15:58] LABS: Albumin 3.8 g/dL (3.80-4.90); Anion Gap 9.1 mmol/L (4.00-12.00); Calcium 8.6 mg/dL (8.7-10.3); Carbon Dioxide 25.9 mmol/L (21.6-31.8); Globulin 1.9 g/dL (1.6-3.3); LDL Cholesterol,Calculated 63.4 mg/dL (0.0-131.0); Potassium 4.1 mmol/L (3.5-5.5); Total Bilirubin 0.5 mg/dL (0.2-1.2); Total Protein 5.7 g/dL (6.2-8.2); VLDL Calculation 17.6 mg/dL (5.00-40.00)
== END | disposition home or self-care (01) ==
LOC: LABWHC1 08:56
PROVIDERS: ATTEND Internal Medicine Interventional Cardiology
DX: E78.2 Mixed hyperlipidemia (principal)
CPT/HCPCS: 36415; 80053; 80061

== ENCOUNTER 2024-08-19 16:06 | Inpatient (IN) | payer MEDICARE ==
--- NOTE | 2024-08-19 16:27 | ED ---
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 (1.0-4.8) k/uL Monocytes # (0-1.0) k/uL Eosinophils # (0-0.7) k/uL Basophils # (0-0.2) k/uL NRBC/100 WBC Diff (0.00-0.01) X 10*3/uL Hypochromasia Anisocytosis ESR (0-20) mm/Hr PT 16.8 H (10.0-12.5) sec INR 1.55 H (<1.2) APTT (22.0-30.0) sec Sodium 144 (137-145) mmol/L Potassium 3.5 (3.5-5.1) mmol/L Chloride 109 (98-107) mmol/L Carbon Dioxide 25.4 (22-30) mmol/L Anion Gap 9.60 mmol/L BUN 23.0 (9-20) mg/dL Creatinine 0.9 (0.66-1.25) mg/dL Est GFR (CKD-EPI) 87 (>=60) Est GFR (CKD-EPI)AfAm (>60 ml/min/1.73 sqM) Est GFR (CKD-EPI)NonAf (>60 ml/min/1.73 sqM) BUN/Creatinine Ratio 25.56 H (12.00-20.00) Ratio Glucose 123 H (74-99) mg/dL POC Glucose (mg/dL) 121 H (70-110) mg/dL POC Glu [employer] Supervisor ID Penelope stein [address] Glu mg/dL mg/dL Hemoglobin A1c (<=6.0) % Plasma Lactic Acid Wilfredo (0.7-2.0) mmol/L Calcium 8.2 L (8.4-10.2) mg/dL Phosphorus (2.5-4.5) mg/dL Magnesium 1.8 (1.6-2.3) mg/dL Total Bilirubin 0.4 (0.2-1.3) mg/dL AST 17 (17-59) U/L ALT 17 (4-49) U/L Alkaline Phosphatase 75 (38-126) U/L Ammonia (<30) umol/L Troponin I (0.000-0.034) ng/mL C-Reactive Protein 9.20 H (0.00-0.80) mg/dL Total Protein 4.9 L (6.3-8.2) g/dL Albumin 2.9 L (3.5-5.0) g/dL Globulin 2.0 g/dL Albumin/Globulin Ratio 1.45 L TSH (0.465-4.680) mIU/L Urine Color Urine Appearance (Clear) Urine pH (5.0-8.0) Ur Specific [place] (1.001-1.035) Urine Protein (Negative) Urine Glucose (UA) (Negative) Urine Ketones (Negative) Urine Blood (Negative) Urine Nitrite (Negative) Urine Bilirubin (Negative) Urine Urobilinogen (<2.0) mg/dL Ur Leukocyte Esterase (Negative) Urine RBC (0-5) /hpf Urine WBC (0-5) /hpf Urine WBC Clumps (None) /hpf Ur Squamous Epith Cells (0-4) /hpf Urine Mucus (None) /hpf Urine Yeast (Budding) (None) /hpf Urine Opiates Screen (NotDetected) Ur Oxycodone Screen (NotDetected) Urine Methadone Screen (NotDetected) Ur Barbiturates Screen (NotDetected) U Tricyclic Antidepress (NotDetected) Ur Phencyclidine Scrn (NotDetected) Ur Amphetamines Screen (NotDetected) U Methamphetamines Scrn (NotDetected) U Benzodiazepines Scrn (NotDetected) Urine Cocaine Screen (NotDetected) U Marijuana (THC) Screen (NotDetected) Serum Alcohol mg/dL - EKG Data -: EKG Interpreted by Me (EKG is A-fib with RVR 100 QRS 92 QTc 418) - Radiology Data Radiology results: report reviewed (CT brain is negative for acute disease), image reviewed Disposition Clinical Impression: Atrial fibrillation, Diabetes, History of CVA (cerebrovascular accident), Altered mental status, UTI (urinary tract infection) Disposition: ADMITTED IP TO THIS HOSP Condition: Fair Is patient prescribed a controlled substance at d/c from ED?: No Time of Disposition: 18:20
[2024-08-19 16:46] LABS: Glucose,Whole Blood 138 mg/dL (70-110)
[2024-08-19 16:55] LABS: Anisocytosis Slight; Basophils % (A) 0 %; Eosinophils # (A) 0.3 k/uL (0-0.7); Eosinophils % (A) 4 %; HCT 34.1 % (39.0-53.0); HGB 10.6 gm/dL (13.0-17.5); Hypochromasia Moderate; Lymphocytes # (A) 0.7 k/uL (1.0-4.8); Lymphocytes % (A) 10 %; MCH 27.5 pg (25.0-35.0); MCHC 31.1 g/dL (31.0-37.0); MCV 88.5 fL (80.0-100.0); Mean Platelet Volume 8.1; Monocytes # (A) 0.5 k/uL (0-1.0); Monocytes % (A) 7 %; Neutrophils # (A) 5.3 k/uL (1.3-7.7); Neutrophils % (A) 77 %; Platelet Count 286 k/uL (150-450); RBC 3.85 m/uL (4.30-5.90); RDW 16.2 % (11.5-15.5); WBC 6.9 k/uL (3.8-10.6)
[2024-08-19 17:03] LABS: Lactic Acid, Venous 1.7 mmol/L (0.7-2.0)
[2024-08-19 17:04] LABS: INR 2.2 (<1.2); Partial Thromboplastin Time 32.7 sec (22.0-30.0); Prothrombin Time 22.5 sec (10.0-12.5)
[2024-08-19 17:05] LABS: ALT 23 U/L (4-49); AST 33 U/L (17-59); African American GFR (CKD) >90 (>60 ml/min/1.73 sqM); Albumin 2.9 g/dL (3.5-5.0); Alcohol <10 mg/dL; Alkaline Phosphatase 91 U/L (38-126); Anion Gap 7 mmol/L; Blood Urea Nitrogen 30 mg/dL (9-20); Calcium 8.4 mg/dL (8.4-10.2); Carbon Dioxide 27 mmol/L (22-30); Chloride 104 mmol/L (98-107); Glucose 135 mg/dL (74-99); Magnesium 1.7 mg/dL (1.6-2.3); Non-African American GFR(CKD) 86 (>60 ml/min/1.73 sqM); Phosphorus 2.8 mg/dL (2.5-4.5); Potassium 3.7 mmol/L (3.5-5.1); Sodium 138 mmol/L (137-145); Total Bilirubin 0.5 mg/dL (0.2-1.3); Total Protein 5.5 g/dL (6.3-8.2)
[2024-08-19] MEDS: SODIUM CHLORIDE 0.9% 1,000 ML IV ONE (17:06)
[2024-08-19 17:41] LABS: Appearance,Urine Turbid (Clear); Bilirubin,Urine Negative (Negative); Blood,Urine Small (Negative); Budding Yeast,Urine Occasional /hpf; Color,Urine Light Yellow; Glucose,Urine (UA) 4+ (Negative); Ketones,Urine Negative (Negative); Leukocyte Esterase,Urine Large (Negative); Mucus,Urine Rare /hpf; Nitrite,Urine Negative (Negative); PH, Urine 5.5 (5.0-8.0); Protein,Urine 1+ (Negative); RBC,Urine 42 /hpf (0-5); Specific Gravity,Urine 1.031 (1.001-1.035); Squamous Epithelial Cell,Urine <1 /hpf (0-4); Urobilinogen,Urine <2.0 mg/dL (<2.0); WBC,Urine >182 /hpf (0-5)
--- NOTE | 2024-08-19 17:43 | CT ---
EXAMINATION TYPE: CT brain wo con DATE OF EXAM: 08/19/2024 HISTORY: AMS. CT DLP: 1184.5 mGycm. Automated Exposure Control for Dose Reduction was Utilized. TECHNIQUE: CT scan of the head is performed without contrast. COMPARISON: None. FINDINGS: There is no acute intracranial hemorrhage or midline shift identified. There is moderate diffuse ventricular and sulcal prominence consistent with diffuse age-related cerebral atrophy. Ther e is moderate to severe low-attenuation in the periventricular white matter consistent with chronic s mall vessel ischemic change. Old infarcts in the right frontal and parietal lobes are present. Bilat eral aphakia is present. The visualized sinuses are clear. Prominent soft tissue density in bilater al external auditory canals is felt to reflect cerumen. This should be correlated with direct visuali zation however. IMPRESSION: No acute intracranial hemorrhage or midline shift. There is moderate diffuse age-relate d cerebral atrophy and moderate to severe chronic small vessel ischemic change along with old right f rontal and parietal lobe infarcts all noted. [facility], , 08/19/2024 5:40 PM
[2024-08-19 17:47] LABS: Amphetamine Screen,Urine Not Detected (NotDetected); Barbiturate Screen,Urine Not Detected (NotDetected); Benzodiazepines Screen,Urine Not Detected (NotDetected); Cocaine Screen,Urine Not Detected (NotDetected); Methadone Screen, Urine Not Detected (NotDetected); Opiate Screen,Urine Not Detected (NotDetected); Oxycodone Screen, Urine Not Detected (NotDetected); Phencyclidine Screen,Urine Not Detected (NotDetected); Tricyclic Antidepressant,Urine Not Detected (NotDetected); Urn Cannabinoid Scrn Not Detected (NotDetected)
[2024-08-19] MEDS ORDERED: ONDANSETRON 4 MG/2 ML VIAL IVP PRN (18:21)
[2024-08-19] MEDS ORDERED: NALOXONE 0.4 MG/ML 1 ML VIAL IV PRN (18:21)
[2024-08-19] MEDS: SODIUM CHLORIDE 0.9% 1,000 ML IV SCH (18:49)
[2024-08-20 06:19] LABS: ALT 22 U/L (4-49); AST 26 U/L (17-59); African American GFR (CKD) >90 (>60 ml/min/1.73 sqM); Albumin 2.8 g/dL (3.5-5.0); Albumin/Globulin Ratio 1.1; Alkaline Phosphatase 83 U/L (38-126); Anion Gap 12 mmol/L; Blood Urea Nitrogen 26 mg/dL (9-20); Calcium 8.2 mg/dL (8.4-10.2); Carbon Dioxide 22 mmol/L (22-30); Chloride 104 mmol/L (98-107); Globulin 2.5 g/dL; Glucose 213 mg/dL (74-99); Magnesium 1.5 mg/dL (1.6-2.3); Non-African American GFR(CKD) 86 (>60 ml/min/1.73 sqM); Phosphorus 3.2 mg/dL (2.5-4.5); Potassium 3.6 mmol/L (3.5-5.1); Sodium 138 mmol/L (137-145); Total Bilirubin 0.8 mg/dL (0.2-1.3); Total Protein 5.3 g/dL (6.3-8.2)
[2024-08-20 06:21] LABS: Anisocytosis Slight; Basophils % (A) 0 %; Eosinophils # (A) 0.3 k/uL (0-0.7); Eosinophils % (A) 4 %; HCT 33.4 % (39.0-53.0); HGB 10.5 gm/dL (13.0-17.5); Hypochromasia Moderate; Lymphocytes # (A) 0.7 k/uL (1.0-4.8); Lymphocytes % (A) 8 %; MCH 27.7 pg (25.0-35.0); MCHC 31.3 g/dL (31.0-37.0); MCV 88.7 fL (80.0-100.0); Mean Platelet Volume 9.1; Monocytes # (A) 0.6 k/uL (0-1.0); Monocytes % (A) 7 %; Neutrophils # (A) 6.6 k/uL (1.3-7.7); Neutrophils % (A) 78 %; Platelet Count 252 k/uL (150-450); RBC 3.77 m/uL (4.30-5.90); RDW 16.4 % (11.5-15.5); WBC 8.4 k/uL (3.8-10.6)
[2024-08-20 07:35] LABS: Glucose,Whole Blood 242 mg/dL (70-110)
[2024-08-20] MEDS ORDERED: ACETAMINOPHEN TAB 500 MG TAB PO PRN (12:02)
[2024-08-20] MEDS ORDERED: DEXTROSE 50% SYRINGE 50 ML IVP PRN ×2 (12:03)
--- NOTE | 2024-08-20 12:44 | XR ---
EXAMINATION TYPE: XR abdomen acute w cxr DATE OF EXAM: 08/20/2024 COMPARISON: 01/08/2017 CLINICAL INDICATION: Male, 79 years old with history of confusion, altered mental status, uti, no bow el movement in ostomy for 3 days; TECHNIQUE: Supine, upright, and left side down lateral decubitus views of the abdomen are obtained. FINDINGS: Frontal view of the chest shows mild cardiomegaly and mild interstitial prominence. Blunted lateral l eft costophrenic angle with patchy left lower lung opacity. Right PICC tip not clearly seen, extends at least to the upper to mid SVC. Suspect some pericardial calcifications along the base of the heart . Hyperinflation. No evidence for free intraperitoneal air. No dilated small bowel or air-fluid levels. Left lower quadrant ostomy noted. There appears to be scattered moderate stool. Vascular calcifications in the pelvis Calcification right upper quadrant measuring 1.1 cm may be within the kidney or could represent a gal lstone. 1.0 cm calcification/phlebolith lower left pelvis. IMPRESSION: 1. Mild cardiomegaly and COPD. Either chronic pleural parenchymal scarring at the left base versus a small left effusion with adjacent atelectasis and/or consolidation. Correlate to exclude pulmonary va scular congestion. 2. No evidence for free air or bowel obstruction. 3. Left lower quadrant ostomy. Moderate stool burden. 4. Possible 1.1 cm renal calculus versus gallstone right upper quadrant. [facility], , 08/20/2024 12:41 PM
[2024-08-20 12:47] LABS: Glucose,Whole Blood 303 mg/dL (70-110)
[2024-08-20] MEDS: INSULIN ASPART (NovoLOG) 100 UNIT/ML VIAL SQ SCH (12:51)
[2024-08-20] MEDS: TAMSULOSIN 0.4 MG CAP.ER.24H PO SCH (12:52)
[2024-08-20] MEDS: PANTOPRAZOLE 40 MG/10 ML VIAL IVP SCH (12:52)
[2024-08-20] MEDS: ASPIRIN 81 MG PO SCH (12:52)
[2024-08-20] MEDS: MULTIVITAMINS, THERA 1 EACH TAB PO SCH (12:52)
[2024-08-20] MEDS: DILTIAZEM CD 180 MG CAP.ER.24H PO SCH (13:48)
[2024-08-20] MEDS: INSULIN DETEMIR (LEVEMIR) 100 UNIT/ML SYR SQ SCH (13:48)
[2024-08-20] MEDS: NYSTATIN 100,000 UNIT/GM POWD 15 GM TOPICAL SCH (13:48)
[2024-08-20] MEDS ORDERED: LACTULOSE 20 GM/30 ML CUP PO PRN (14:24)
[2024-08-20] MEDS: LACTULOSE 20 GM/30 ML CUP PO ONE (16:05)
[2024-08-20] MEDS ORDERED: HEPARIN IV SCH (17:00)
[2024-08-20 17:19] LABS: Glucose,Whole Blood 342 mg/dL (70-110)
[2024-08-20] MEDS: METOPROLOL SUCCINATE (ER) 25 MG TAB.ER.24H PO SCH (17:55)
[2024-08-20 19:58] LABS: Glucose,Whole Blood 298 mg/dL (70-110)
[2024-08-20] MEDS: ATORVASTATIN 20 MG TAB PO SCH (22:14)
[2024-08-20] MEDS: AMMONIUM LACTATE 12% LOTION 225 GM BTL TOPICAL SCH (22:14)
[2024-08-20] MEDS: HEPARIN SODIUM,PORCINE 5,000 UNIT/ML 1 ML VIAL SQ SCH (22:14)
[2024-08-20] MEDS ORDERED: VANCOMYCIN IV PER PHARMACY 1 EACH MISC MISCELLANE PRN (22:33)
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
[2024-08-20] MEDS: VANCOMYCIN 1,500 MG in SODIUM CHLORIDE 0.9% 500 ML 500 ML IVPB SCH (23:46)
[2024-08-20] MEDS: CEFEPIME 2 GM in SODIUM CHLORIDE 0.9% 100 ML IVPB SCH (23:50)
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
[2024-08-21 07:21] LABS: Glucose,Whole Blood 121 mg/dL (70-110)
[2024-08-21 08:22] LABS: Basophils # (A) 0.04 X 10*3/uL (0.00-0.10); Basophils % (A) 0.7 %; Eosinophils # (A) 0.44 X 10*3/uL (0.04-0.35); Eosinophils % (A) 7.5 %; HCT 30.9 % (39.6-50.0); HGB 9.5 g/dL (13.0-17.0); Lymphocytes # (A) 0.76 X 10*3/uL (0.90-5.00); Lymphocytes % (A) 12.9 %; MCH 27.4 pg (27.0-32.0); MCHC 30.7 g/dL (32.0-37.0); Mean Platelet Volume 10.6 FL (9.5-12.2); Monocytes # (A) 0.77 X 10*3/uL (0.20-1.00); Monocytes % (A) 13.1 %; NRBC Per 100 WBC 0 X 10*3/uL (0.00-0.01); Neutrophils # (A) 3.88 X 10*3/uL (1.80-7.70); Neutrophils % (A) 65.6 %; Platelet Count 250 X 10*3/uL (140-440); RBC 3.47 X 10*6/uL (4.40-5.60); RDW 16.8 % (11.5-14.5)
[2024-08-21] MEDS: HEPARIN SODIUM,PORCINE 5,000 UNIT/ML 1 ML VIAL SQ SCH (08:32)
[2024-08-21 08:45] LABS: ALT 17 U/L (10-49); AST 17 U/L (14-35); Albumin 2.9 g/dL (3.8-4.9); Albumin/Globulin Ratio 1.45 Ratio (1.60-3.17); Alkaline Phosphatase 75 U/L (41-126); BUN/Creat Ratio 25.56 Ratio (12.00-20.00); Calcium 8.2 mg/dL (8.7-10.3); Carbon Dioxide 25.4 mmol/L (21.6-31.8); Chloride 109 mmol/L (96-109); Glucose 123 mg/dL (70-110); Magnesium 1.8 mg/dL (1.5-2.4); Potassium 3.5 mmol/L (3.5-5.5); Sodium 144 mmol/L (135-145); Total Bilirubin 0.4 mg/dL (0.3-1.2); Total Protein 4.9 g/dL (6.2-8.2)
[2024-08-21] MEDS ORDERED: HEPARIN SODIUM,PORCINE 5,000 UNIT/ML 1 ML VIAL SQ SCH (09:00)
[2024-08-21 09:41] LABS: Erythrocyte Sedimentation Rate 44 mm/Hr (0-20)
[2024-08-21 09:42] LABS: INR 1.55 sec (0.93-1.11); Prothrombin Time 16.8 sec (9.9-11.9)
[2024-08-21 12:25] LABS: Glucose,Whole Blood 306 mg/dL (70-110)
[2024-08-21 12:41] VITALS: BMI 28.0
[2024-08-21] MEDS: ERTAPENEM 1 GM in SODIUM CHLORIDE 0.9% 50 ML IVPB SCH (13:33)
[2024-08-21] MEDS: MORPHINE SULFATE 4 MG/ML SYRINGE IV PRN (14:46)
[2024-08-21 15:17] LABS: Glucose,Whole Blood 251 mg/dL (70-110)
[2024-08-21 17:18] LABS: Glucose,Whole Blood 252 mg/dL (70-110)
[2024-08-21] MEDS ORDERED: WARFARIN 3 MG TAB PO ONE (18:00)
[2024-08-21] MEDS: WARFARIN 2 MG TAB PO ONE (18:18)
[2024-08-21] MEDS: ACETAMINOPHEN TAB 325 MG TAB PO PRN (18:18)
--- NOTE | 2024-08-21 18:41 | CT ---
EXAMINATION TYPE: CT sacrum wo con DATE OF EXAM: 08/21/2024 COMPARISON: None. CLINICAL INDICATION: Male, 79 years old with history of stage 4 decub ?? osteomyelitis; PHH, osteomye litis, decub ulcer CT DLP: 508.8 mGycm Automated exposure control for dose reduction was used. FINDINGS: Decubitus ulcer with abnormal soft tissue thickening extends to the level of the lower sacrum/coccyx where there is some bony deformity identified or gap of normal bone present. No well-formed fluid col lection or abscess at this level is seen. There is extension of abnormal soft tissue in the presacral region at level of the lower sacrum axial image 41. Jones catheter in bladder is seen. Osseous struc tures are demineralized. No acute displaced fracture is seen. Extensive small vessel arterial vascula r calcification suggests long-standing medical renal disease. IMPRESSION: SOFT TISSUE DECUBITUS ULCER WITH BONY DESTRUCTION PORTION OF THE LOWER SACRUM/COCCYX CONSISTENT WITH AGE INDETERMINATE OSTEOMYELITIS. [facility], , 08/21/2024 6:39 PM
[2024-08-21 20:40] LABS: Glucose,Whole Blood 175 mg/dL (70-110)
[2024-08-22 04:10] LABS: INR 1.5 (<1.2); Prothrombin Time 15.4 sec (10.0-12.5)
--- NOTE | 2024-08-22 05:59 | P.PN ---
Subjective Progress Note Date: 08/21/24 This is a pleasant 79-year-old male who presented to the emergency department from [facility] with concerns of altered mental status, possible UTI. Per daughter at the bedside patient had been recently at [facility] and discharged New 's Jacquelyn to [facility] [place] for continued PT/OT therapy with a PICC line and IV antibiotics along with wound care for extensive ongoing sacral decubitus ulcer with osteomyelitis. Per daughter at the bedside patient had become altered and talking "loopy" and reports when he becomes altered it is usually from a urinary tract infection and called for EMS to take him to the hospital. CT brain was done showing no acute process, labs reviewed with no white count, afebrile, hemoglobin is 10.6, INR 2.2 as patient is on Coumadin and kidney functions within normal limits other than mildly elevated blood sugar. Patient primary care provider Dr. 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 Daughter at the bedside reports she does not want her father to return to [facility] on discharge. Social work will be consulted. Patient admitted for altered mental status with concerns of UTI and ongoing decubitus ulcer. Infectious disease consulted. 08/22/2024 Patient is seen in follow-up this morning and mentation is much improved per family at the bedside. 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 Patient does follow with Dr. Valverde at the wound care center outpatient. Patient is maintained on vancomycin with infectious disease following with concerns of infection at the decubitus ulcer site and there were concerns of possible urinary tract infection, Jones associated as patient has a chronic Jones on admission. Patient did have indwelling Jones catheter exchanged in the ER and family at the bedside reports he has been having an indwelling Jones catheter for the last few months. Patient is afebrile with no reports of chest pain or shortness of breath. Patient was able to have a large bowel movement and there is stool noted in the ostomy along with gas. Awaiting cultures and further recommendations from infectious disease regarding discharge planning. Patient also due to insurance coverage will need ECF for IV antibiotic therapy. Case management is following regarding this. Review of systems: Constitutional: No reports of fatigue, fever, or chills Cardiovascular: No reports of chest pain or palpitations Respiratory: No reports of shortness of breath or cough GI: No reports of nausea, vomiting, or diarrhea, reports feeling hungry : No reports of dysuria or retention Neurovascular:reports of chronic generalized weakness All medications have been reviewed PHYSICAL EXAMINATION: GENERAL: The patient is awake, alert and oriented x 23, extremely hard of hearing, not in any acute distress. Well developed, elderly appearing HEENT: Pupils are round and equally reacting to light. EOMI. No scleral icterus. No conjunctival pallor. Normocephalic, atraumatic. No pharyngeal erythema. No thyromegaly. CARDIOVASCULAR: S1 and S2 muffled PULMONARY: Diminished breath sounds bilaterally otherwise chest is clear to auscultation, no wheezing or crackles. ABDOMEN: Soft, nontender, nondistended, normoactive bowel sounds. No palpable organomegaly. Ostomy noted with stool and gas MUSCULOSKELETAL: No joint swelling or deformity. EXTREMITIES: No cyanosis, clubbing, or pedal edema. Left hand amputation noted NEUROLOGICAL: Gross neurological examination did not reveal any focal deficits. Diffusely weak SKIN: No rashes. Pale Assessment: Altered mental status, acute metabolic encephalopathy, possibly secondary to sacral wounds, improved History of extensive stage IV sacral wound, present on admission and had wound VAC previously, currently maintained on a PICC line and IV antibiotics from last week discharge Left hip unstageable ulcer, present on admission Left lateral ankle pressure ulcer, present on admission Concerns for possible acute urinary tract infection, present on admission, patient does have chronic indwelling Jones catheter for retention, suspicion is low and likely asymptomatic bacteriuria as patient denies having pain, burning, or frequency with urination Diabetes mellitus, type II, uncontrolled with hyperglycemia, insulin-dependent Hyperlipidemia history Hypertension history History of atrial fibrillation, maintained on Coumadin History of neuropathy History of gangrene of the left toe and osteomyelitis Osteomyelitis of the sacral ulcer site with being recently hospitalized at [facility] and discharged to [facility] on 08/13/2024 with IV PICC line and antibiotics for a 6-week course Peripheral artery disease history History of CVA/TIA GI prophylaxis DVT prophylaxis Full code Plan: Patient was brought here from [facility] for altered mentation and per and daughter when he appears altered is usually from a urinary tract infection Patient does have a chronic indwelling Jones catheter for retention and also was placed due to extensive sacral wound. Patient's Jones catheter was exchanged in the ER on admission. Repeat urine culture pending at this time, suspicion for UTI is low, likely asymptomatic bacteriuria Infectious disease following and will consult wound care and appreciate input and recommendations. Family at the bedside reports he follows at the wound care center with Dr. Valverde every other week Recommend Accu-Cheks before meals and at bedtime and will add long-acting along with sliding scale and adjust accordingly Continue offloading Patient is having bowel movements, will make bowel regimen as needed follow-up with repeat labs Case management/social work consult for discharge planning. Apparently his insurance does not cover in-home antibiotics and will require IV antibiotic on discharge and ECF. Family does not want to return to [facility] [place] [facility] [place] and referrals have been placed to [facility]. Will need PT/OT therapy evaluation The impression and plan of care has been dictated by Ximena Cisneros, Nurse Practitioner as directed. Dr. Missael MD I have performed a history and examination and MDM of this patient, discussed the same with the dictator, and agree with the dictator's assessment and plan as written ,documented as a scribe. Based on total visit time, I have performed more than 50% of the visit. Objective - Vital Signs Vital signs: Vital Signs Temp 98.4 F 08/21/24 07:20 Pulse 87 08/21/24 07:20 Resp 18 08/21/24 07:20 BP 115/68 08/21/24 07:20 Pulse Ox 97 08/21/24 07:20 FiO2 Intake & Output 08/20/24 08/21/24 08/21/24 18:59 06:59 18:59 Output Total 1300 700 Balance -1300 -700 Weight 98.883 kg Output: Urine 1000 700 Stool 300 Other: Voiding Method Indwelling Catheter Indwelling Catheter # Bowel Movements 1 - Labs CBC & Chem 7: 08/21/24 04:41 08/21/24 04:41 Labs: Abnormal Lab Results - Last 24 Hours (Table) 08/20/24 08/20/24 08/20/24 Range/Units 05:38 12:39 17:17 RBC (4.40-5.60) X 10*6/uL Hgb (13.0-17.0) g/dL Hct (39.6-50.0) % MCHC (32.0-37.0) g/dL RDW (11.5-14.5) % Lymphocytes # (0.90-5.00) X 10*3/uL Eosinophils # (0.04-0.35) X 10*3/uL ESR (0-20) mm/Hr PT (9.9-11.9) sec INR (0.93-1.11) sec BUN/Creatinine Ratio (12.00-20.00) Ratio Glucose (70-110) mg/dL POC Glucose (mg/dL) 303 H 342 H (70-110) mg/dL Hemoglobin A1c 7.1 H (<=6.0) % Calcium (8.7-10.3) mg/dL C-Reactive Protein (0.00-0.80) mg/dL Total Protein (6.2-8.2) g/dL Albumin (3.8-4.9) g/dL Albumin/Globulin Ratio (1.60-3.17) Ratio 08/20/24 08/21/24 08/21/24 Range/Units 19:54 04:41 04:41 RBC 3.47 L (4.40-5.60) X 10*6/uL Hgb 9.5 L (13.0-17.0) g/dL Hct 30.9 L (39.6-50.0) % MCHC 30.7 L (32.0-37.0) g/dL RDW 16.8 H (11.5-14.5) % Lymphocytes # 0.76 L (0.90-5.00) X 10*3/uL Eosinophils # 0.44 H (0.04-0.35) X 10*3/uL ESR 44 H (0-20) mm/Hr PT (9.9-11.9) sec INR (0.93-1.11) sec BUN/Creatinine Ratio 25.56 H (12.00-20.00) Ratio Glucose 123 H (70-110) mg/dL POC Glucose (mg/dL) 298 H (70-110) mg/dL Hemoglobin A1c (<=6.0) % Calcium 8.2 L (8.7-10.3) mg/dL C-Reactive Protein 9.20 H (0.00-0.80) mg/dL Total Protein 4.9 L (6.2-8.2) g/dL Albumin 2.9 L (3.8-4.9) g/dL Albumin/Globulin Ratio 1.45 L (1.60-3.17) Ratio 08/21/24 08/21/24 Range/Units 05:14 07:20 RBC (4.40-5.60) X 10*6/uL Hgb (13.0-17.0) g/dL Hct (39.6-50.0) % MCHC (32.0-37.0) g/dL RDW (11.5-14.5) % Lymphocytes # (0.90-5.00) X 10*3/uL Eosinophils # (0.04-0.35) X 10*3/uL ESR (0-20) mm/Hr PT 16.8 H (9.9-11.9) sec INR 1.55 H (0.93-1.11) sec BUN/Creatinine Ratio (12.00-20.00) Ratio Glucose (70-110) mg/dL POC Glucose (mg/dL) 121 H (70-110) mg/dL Hemoglobin A1c (<=6.0) % Calcium (8.7-10.3) mg/dL C-Reactive Protein (0.00-0.80) mg/dL Total Protein (6.2-8.2) g/dL Albumin (3.8-4.9) g/dL Albumin/Globulin Ratio (1.60-3.17) Ratio Microbiology - Last 24 Hours (Table) 08/20/24 11:42 Gram Stain - Preliminary Buttock Wound Culture - Preliminary 08/19/24 17:35 Blood Culture - Preliminary Blood
[2024-08-22 08:04] LABS: Glucose,Whole Blood 124 mg/dL (70-110)
[2024-08-22] MEDS: VANCOMYCIN TROUGH DUE 1 EACH MISC MISCELLANE ONE (10:29)
[2024-08-22 10:36] LABS: African American GFR (CKD) >90 (>60 ml/min/1.73 sqM); Anion Gap 5 mmol/L; Blood Urea Nitrogen 28 mg/dL (9-20); Calcium 8.2 mg/dL (8.4-10.2); Carbon Dioxide 28 mmol/L (22-30); Chloride 105 mmol/L (98-107); Glucose 184 mg/dL (74-99); Non-African American GFR(CKD) 85 (>60 ml/min/1.73 sqM); Sodium 138 mmol/L (137-145)
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
[2024-08-22 12:40] LABS: Glucose,Whole Blood 150 mg/dL (70-110)
--- NOTE | 2024-08-22 13:13 | XR ---
EXAMINATION TYPE: XR chest 1V portable DATE OF EXAM: 08/22/2024 12:53 PM COMPARISON: 01/08/2017 CLINICAL INDICATION: Male, 79 years old with history of shortness of breath, , FINDINGS: Heart is moderately enlarged. Right PICC tip lower SVC. Atherosclerotic arch calcifications. Diffuse interstitial, perihilar, and patchy opacities, left greater than right. Small left greater than right pleural effusions. IMPRESSION: CHF with pulmonary edema and small left pleural effusion. [facility], , 08/22/2024 1:10 PM
--- NOTE | 2024-08-22 14:56 | P.PN ---
Subjective Progress Note Date: 08/21/24 Principal diagnosis: Reason for follow-up is a sacral osteomyelitis and UTI Patient is a 79-year-old male with a past medical history significant for hypertension hyperlipidemia type 2 diabetes mellitus CVA TIA atrial fibrillation has been in the hospital and has developed sacral pressure ulcer and was diagnosed with an osteomyelitis at [facility] but no culture were done now presenting to this facility with mental status change concerning for worsening sacral pressure ulcer and possible UTI. On today's evaluation that is 08/21/2024,the patient denies any fever or any chills, patient is breathing comfortably on room air, the patient denies chest pain shortness of breath and no significant cough, patient denies abdominal pain, no nausea vomiting or diarrhea. Patient white count is 5.90, creatinine 0.9 Objective - Vital Signs Vital signs: Vital Signs Temp 98.4 F 08/21/24 07:20 Pulse 87 08/21/24 07:20 Resp 18 08/21/24 07:20 BP 115/68 08/21/24 07:20 Pulse Ox 97 08/21/24 07:20 FiO2 Intake & Output 08/20/24 08/21/24 08/21/24 18:59 06:59 18:59 Output Total 1300 700 Balance -1300 -700 Weight 98.883 kg Output: Urine 1000 700 Stool 300 Other: Voiding Method Indwelling Catheter Indwelling Catheter Indwelling Catheter # Bowel Movements 1 - Exam GENERAL DESCRIPTION: An elderly male lying in bed in no distress RESPIRATORY SYSTEM: Unlabored breathing , decreased breath sounds at bases HEART: S1 S2 regular rate and rhythm , ABDOMEN: Soft , no tenderness EXTREMITIES: No edema feet - Labs CBC & Chem 7: 08/21/24 04:41 08/22/24 09:47 Labs: Abnormal Lab Results - Last 24 Hours (Table) 08/20/24 08/20/24 08/20/24 Range/Units 05:38 12:39 17:17 RBC (4.40-5.60) X 10*6/uL Hgb (13.0-17.0) g/dL Hct (39.6-50.0) % MCHC (32.0-37.0) g/dL RDW (11.5-14.5) % Lymphocytes # (0.90-5.00) X 10*3/uL Eosinophils # (0.04-0.35) X 10*3/uL ESR (0-20) mm/Hr PT (9.9-11.9) sec INR (0.93-1.11) sec BUN/Creatinine Ratio (12.00-20.00) Ratio Glucose (70-110) mg/dL POC Glucose (mg/dL) 303 H 342 H (70-110) mg/dL Hemoglobin A1c 7.1 H (<=6.0) % Calcium (8.7-10.3) mg/dL C-Reactive Protein (0.00-0.80) mg/dL Total Protein (6.2-8.2) g/dL Albumin (3.8-4.9) g/dL Albumin/Globulin Ratio (1.60-3.17) Ratio 08/20/24 08/21/24 08/21/24 Range/Units 19:54 04:41 04:41 RBC 3.47 L (4.40-5.60) X 10*6/uL Hgb 9.5 L (13.0-17.0) g/dL Hct 30.9 L (39.6-50.0) % MCHC 30.7 L (32.0-37.0) g/dL RDW 16.8 H (11.5-14.5) % Lymphocytes # 0.76 L (0.90-5.00) X 10*3/uL Eosinophils # 0.44 H (0.04-0.35) X 10*3/uL ESR 44 H (0-20) mm/Hr PT (9.9-11.9) sec INR (0.93-1.11) sec BUN/Creatinine Ratio 25.56 H (12.00-20.00) Ratio Glucose 123 H (70-110) mg/dL POC Glucose (mg/dL) 298 H (70-110) mg/dL Hemoglobin A1c (<=6.0) % Calcium 8.2 L (8.7-10.3) mg/dL C-Reactive Protein 9.20 H (0.00-0.80) mg/dL Total Protein 4.9 L (6.2-8.2) g/dL Albumin 2.9 L (3.8-4.9) g/dL Albumin/Globulin Ratio 1.45 L (1.60-3.17) Ratio 08/21/24 08/21/24 Range/Units 05:14 07:20 RBC (4.40-5.60) X 10*6/uL Hgb (13.0-17.0) g/dL Hct (39.6-50.0) % MCHC (32.0-37.0) g/dL RDW (11.5-14.5) % Lymphocytes # (0.90-5.00) X 10*3/uL Eosinophils # (0.04-0.35) X 10*3/uL ESR (0-20) mm/Hr PT 16.8 H (9.9-11.9) sec INR 1.55 H (0.93-1.11) sec BUN/Creatinine Ratio (12.00-20.00) Ratio Glucose (70-110) mg/dL POC Glucose (mg/dL) 121 H (70-110) mg/dL Hemoglobin A1c (<=6.0) % Calcium (8.7-10.3) mg/dL C-Reactive Protein (0.00-0.80) mg/dL Total Protein (6.2-8.2) g/dL Albumin (3.8-4.9) g/dL Albumin/Globulin Ratio (1.60-3.17) Ratio Microbiology - Last 24 Hours (Table) 08/20/24 11:42 Gram Stain - Preliminary Buttock Wound Culture - Preliminary 08/19/24 17:35 Blood Culture - Preliminary Blood Assessment and Plan (1) Stage IV pressure ulcer of sacral region Current Visit: Yes Status: Acute Code(s): L89.154 - PRESSURE ULCER OF SACRAL REGION, STAGE 4 SNOMED Code(s): 91391404066568 (2) Catheter-associated urinary tract infection Current Visit: Yes Status: Acute Code(s): T83.511A - I/I REACT D/T INDWELLING URETHRAL CATHETER, INIT; N39.0 - URINARY TRACT INFECTION, SITE NOT SPECIFIED SNOMED Code(s): 847686925 Plan: 1patient presented hospital mental status changes source is multifactorial in this patient who was noticed to have a significant cloudy purulent urine positive UA and concerning for catheter associated UTI patient also have a stage IV sacral pressure ulcer with wound palpable and clinically source of this infection 2-local culture have been obtained both aerobic and aerobic urine culture have been requested not to guide further by therapy 3-patient antibiotic has been adjusted to Invanz and vancomycin continue while waiting for the culture to finalize Dictation was produced using [employer] software. please excuse any grammatical, word or spelling errors. Time with Patient: Less than 30
--- NOTE | 2024-08-22 14:59 | P.PN ---
Subjective Progress Note Date: 08/22/24 Principal diagnosis: Reason for follow-up is a sacral osteomyelitis and UTI Patient is a 79-year-old male with a past medical history significant for hypertension hyperlipidemia type 2 diabetes mellitus CVA TIA atrial fibrillation has been in the hospital and has developed sacral pressure ulcer and was diagnosed with an osteomyelitis at [facility] but no culture were done now presenting to this facility with mental status change concerning for worsening sacral pressure ulcer and possible UTI. On today's evaluation that is 08/22/2024,the patient remains to be afebrile, patient is on room air not requiring supplemental oxygen and denies any shortnes s of breath no chest pain or cough.Patient denies having any nausea or vomiting, no abdominal pain and no diarrhea has been reported Patient sacral culture have been finalized with MRSA urine is growing Melissa Objective - Vital Signs Vital signs: Vital Signs Temp 97.7 F 08/22/24 08:00 Pulse 89 08/22/24 08:00 Resp 20 08/22/24 08:00 BP 130/63 08/22/24 08:00 Pulse Ox 90 L 08/22/24 12:28 FiO2 Intake & Output 08/21/24 08/22/24 08/22/24 18:59 06:59 18:59 Intake Total 1620 1080 240 Output Total 600 400 Balance 1020 680 240 Weight 98.883 kg Intake: Oral 1620 1080 240 Output: Urine 600 400 Other: Voiding Method Indwelling Catheter Indwelling Catheter Indwelling Catheter # Bowel Movements 1 - Exam GENERAL DESCRIPTION: An elderly male lying in bed in no distress RESPIRATORY SYSTEM: Unlabored breathing , decreased breath sounds at bases HEART: S1 S2 regular rate and rhythm , ABDOMEN: Soft , no tenderness EXTREMITIES: No edema feet - Labs CBC & Chem 7: 08/21/24 04:41 08/22/24 09:47 Labs: Abnormal Lab Results - Last 24 Hours (Table) 08/21/24 08/21/24 08/21/24 Range/Units 15:05 17:14 20:39 PT (10.0-12.5) sec INR (<1.2) BUN (9-20) mg/dL Glucose (74-99) mg/dL POC Glucose (mg/dL) 251 H 252 H 175 H (70-110) mg/dL Calcium (8.4-10.2) mg/dL 08/22/24 08/22/24 08/22/24 Range/Units 03:17 08:00 09:47 PT 15.4 H (10.0-12.5) sec INR 1.5 H (<1.2) BUN 28 H (9-20) mg/dL Glucose 184 H (74-99) mg/dL POC Glucose (mg/dL) 124 H (70-110) mg/dL Calcium 8.2 L (8.4-10.2) mg/dL 08/22/24 Range/Units 12:20 PT (10.0-12.5) sec INR (<1.2) BUN (9-20) mg/dL Glucose (74-99) mg/dL POC Glucose (mg/dL) 150 H (70-110) mg/dL Calcium (8.4-10.2) mg/dL Microbiology - Last 24 Hours (Table) 08/21/24 02:51 Urine Culture - Final Urine,Clean Catch Melissa albicans 08/20/24 11:42 Anaerobic Culture - Preliminary Coccyx 08/20/24 11:42 Gram Stain - Preliminary Buttock Wound Culture - Preliminary Methicillin resist S. aureus 08/19/24 17:35 Blood Culture - Preliminary Blood Assessment and Plan (1) Stage IV pressure ulcer of sacral region Current Visit: Yes Status: Acute Code(s): L89.154 - PRESSURE ULCER OF SACRAL REGION, STAGE 4 SNOMED Code(s): 46675663760454 (2) Catheter-associated urinary tract infection Current Visit: Yes Status: Acute Code(s): T83.511A - I/I REACT D/T INDWELLING URETHRAL CATHETER, INIT; N39.0 - URINARY TRACT INFECTION, SITE NOT SPECIFIED SNOMED Code(s): 175384352 Plan: 1patient presented hospital mental status changes source is multifactorial in this patient who was noticed to have a significant cloudy purulent urine positive UA and concerning for catheter associated UTI patient also have a stage IV sacral pressure ulcer with wound palpable and clinically source of this infection 2-local sacral culture currently growing MRSA and oral cultures pending urine is growing Melissa 3-patient will be continued with the vancomycin discontinue Invanz we will add oral Flagyl pending anaerobe culture and Diflucan e Dictation was produced using [employer] dictation software. please excuse any grammatical, word or spelling errors. Time with Patient: Less than 30
[2024-08-22] MEDS: FUROSEMIDE 10 MG/ML 4 ML VIAL IV SCH (16:47)
[2024-08-22] MEDS: metroNIDAZOLE 500 MG TAB PO SCH (16:50)
[2024-08-22] MEDS: FLUCONAZOLE 100 MG TAB PO SCH (16:50)
[2024-08-22] MEDS: WARFARIN 2 MG TAB PO ONE (16:50)
[2024-08-22 17:19] LABS: Glucose,Whole Blood 314 mg/dL (70-110)
[2024-08-22 20:52] LABS: Glucose,Whole Blood 104 mg/dL (70-110)
[2024-08-23 05:36] LABS: African American GFR (CKD) >90 (>60 ml/min/1.73 sqM); Anion Gap 3 mmol/L; Blood Urea Nitrogen 24 mg/dL (9-20); Carbon Dioxide 29 mmol/L (22-30); Chloride 105 mmol/L (98-107); Glucose 205 mg/dL (74-99); Non-African American GFR(CKD) 80 (>60 ml/min/1.73 sqM); Potassium 3.8 mmol/L (3.5-5.1); Sodium 137 mmol/L (137-145)
[2024-08-23 05:40] LABS: INR 1.9 (<1.2); Prothrombin Time 19.7 sec (10.0-12.5)
--- NOTE | 2024-08-23 06:22 | P.PN ---
Subjective Progress Note Date: 08/22/24 This is a pleasant 79-year-old male who presented to the emergency department from [facility] with concerns of altered mental status, possible UTI. Per daughter at the bedside patient had been recently at [facility] and discharged New 's Jacquelyn to [facility] for continued PT/OT therapy with a PICC line and IV antibiotics along with wound care for extensive ongoing sacral decubitus ulcer with osteomyelitis. Per daughter at the bedside patient had become altered and talking "loopy" and reports when he becomes altered it is usually from a urinary tract infection and called for EMS to take him to the hospital. CT brain was done showing no acute process, labs reviewed with no white count, afebrile, hemoglobin is 10.6, INR 2.2 as patient is on Coumadin and kidney functions within normal limits other than mildly elevated blood sugar. Patient primary care provider Dr. 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 Daughter at the bedside reports she does not want her father to return to [facility] on discharge. Social work will be consulted. Patient admitted for altered mental status with concerns of UTI and ongoing decubitus ulcer. Infectious disease consulted. 08/21/2024 Patient is seen in follow-up this morning and mentation is much improved per family at the bedside. 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 Patient does follow with Dr. Valverde at the wound care center outpatient. Patient is maintained on vancomycin with infectious disease following with concerns of infection at the decubitus ulcer site and there were concerns of possible urinary tract infection, Jones associated as patient has a chronic Jones on admission. Patient did have indwelling Jones catheter exchanged in the ER and family at the bedside reports he has been having an indwelling Jones catheter for the last few months. Patient is afebrile with no reports of chest pain or shortness of breath. Patient was able to have a large bowel movement and there is stool noted in the ostomy along with gas. Awaiting cultures and further recommendations from infectious disease regarding discharge planning. Patient also due to insurance coverage will need ECF for IV antibiotic therapy. Case management is following regarding this. 08/22/2024 Patient is seen in follow-up today with no overnight issues noted. Cultures of the sacrum are showing MRSA and CT scan was done positive for osteomyelitis. Patient does currently have a PICC line and is maintained on antibiotics with infectious disease following. Wound care consulted and will continue current wound care regimen. Case management/social work also following as patient will require IV antibiotics on discharge and has no insurance coverage for antibiotics in the home and looking into possibly [place]. Urine cultures finalizing with Melissa and patient is maintained on Diflucan. Patient does have a chronic Jones which was exchanged in the ER. Review of systems: Constitutional: No reports of fatigue, fever, or chills Cardiovascular: No reports of chest pain or palpitations Respiratory: No reports of shortness of breath or cough GI: No reports of nausea, vomiting, or diarrhea : No reports of dysuria or retention Neurovascular:reports of chronic generalized weakness All medications have been reviewed PHYSICAL EXAMINATION: GENERAL: The patient is awake, alert and oriented x 23, extremely hard of hearing, not in any acute distress. Well developed, elderly appearing HEENT: Pupils are round and equally reacting to light. EOMI. No scleral icterus. No conjunctival pallor. Normocephalic, atraumatic. No pharyngeal erythema. No thyromegaly. CARDIOVASCULAR: S1 and S2 muffled PULMONARY: Diminished breath sounds bilaterally otherwise chest is clear to a uscultation, no wheezing or crackles. ABDOMEN: Soft, nontender, nondistended, normoactive bowel sounds. No palpable organomegaly. Ostomy noted with stool and gas MUSCULOSKELETAL: No joint swelling or deformity. EXTREMITIES: No cyanosis, clubbing, or pedal edema. Left hand amputation noted NEUROLOGICAL: Gross neurological examination did not reveal any focal deficits. Diffusely weak SKIN: No rashes. Pale Assessment: Altered mental status, acute metabolic encephalopathy, possibly secondary to sacral wounds, improved History of extensive stage IV sacral wound, present on admission and had wound VAC previously, currently maintained on a PICC line and IV antibiotics from last week discharge, culture showing MRSA and CT scan is positive for osteomyelitis Left hip unstageable ulcer, present on admission Left lateral ankle pressure ulcer, present on admission Concerns for possible acute urinary tract infection, present on admission, patient does have chronic indwelling Jones catheter for retention, suspicion is low and likely asymptomatic bacteriuria as patient denies having pain, burning, or frequency with urination, culture showing Melissa Diabetes mellitus, type II, uncontrolled with hyperglycemia, insulin-dependent Hyperlipidemia history Hypertension history History of atrial fibrillation, maintained on Coumadin History of neuropathy History of gangrene of the left toe and osteomyelitis Osteomyelitis of the sacral ulcer site with being recently hospitalized at [facility] and discharged to ECF on 08/13/2024 with IV PICC line and antibiotics for a 6-week course Peripheral artery disease history History of CVA/TIA GI prophylaxis DVT prophylaxis Full code Plan: Patient is continued on antibiotics with infectious disease following. Culture showing MRSA and CT scan was positive for osteomyelitis. Patient continues with a PICC line and most likely will need IV antibiotics on discharge with plans on going to [facility]. Patient was at [facility] although family does not want him to return there Patient does have a chronic indwelling Jones catheter for retention and also was placed due to extensive sacral wound. Patient's Jones catheter was exchanged in the ER on admission. Repeat urine culture showing Melissa, suspicion for UTI is low, likely asymptomatic bacteriuria Wound care consulted and will continue current wound care recommendations recommend Accu-Cheks before meals and at bedtime and will add long-acting along with sliding scale and adjust accordingly Continue offloading and frequent position changes every 2 hours Patient is having bowel movements, will make bowel regimen as needed follow-up with repeat labs Patient does take Bumex daily and was on hold from admission with kidney functions improving. Patient with some slight congestion, bronchial, will discontinue IV fluids and give IV Lasix. Will resume Bumex on discharge Case management/social work consult for discharge planning. Apparently his insurance does not cover in-home antibiotics and will require IV antibiotic on discharge and ECF. Family does not want to return to [facility] and referrals have been placed to [facility]. Will need PT/OT therapy evaluation Will discuss with infectious disease regarding discharge antibiotics. Possible discharge in the next 24 to 48 hours The impression and plan of care has been dictated by Ximena Cisneros, Nurse Practitioner as directed. Dr. Missael MD I have performed a history and examination and MDM of this patient, discussed the same with the dictator, and agree with the dictator's assessment and plan as written ,documented as a scribe. Based on total visit time, I have performed more than 50% of the visit. Objective - Vital Signs Vital signs: Vital Signs Temp 97.8 F 08/22/24 14:00 Pulse 102 H 08/22/24 14:00 Resp 17 08/22/24 14:00 BP 158/65 08/22/24 14:00 Pulse Ox 92 L 08/22/24 14:00 FiO2 Intake & Output 08/21/24 08/22/24 08/22/24 18:59 06:59 18:59 Intake Total 1620 1080 240 Output Total 600 400 Balance 1020 680 240 Weight 98.883 kg Intake: Oral 1620 1080 240 Output: Urine 600 400 Other: Voiding Method Indwelling Catheter Indwelling Catheter Indwelling Catheter # Bowel Movements 1 - Labs CBC & Chem 7: 08/21/24 04:41 08/23/24 04:29 Labs: Abnormal Lab Results - Last 24 Hours (Table) 08/21/24 08/21/24 08/21/24 Range/Units 15:05 17:14 20:39 PT (10.0-12.5) sec INR (<1.2) BUN (9-20) mg/dL Glucose (74-99) mg/dL POC Glucose (mg/dL) 251 H 252 H 175 H (70-110) mg/dL Calcium (8.4-10.2) mg/dL 08/22/24 08/22/24 08/22/24 Range/Units 03:17 08:00 09:47 PT 15.4 H (10.0-12.5) sec INR 1.5 H (<1.2) BUN 28 H (9-20) mg/dL Glucose 184 H (74-99) mg/dL POC Glucose (mg/dL) 124 H (70-110) mg/dL Calcium 8.2 L (8.4-10.2) mg/dL 08/22/24 Range/Units 12:20 PT (10.0-12.5) sec INR (<1.2) BUN (9-20) mg/dL Glucose (74-99) mg/dL POC Glucose (mg/dL) 150 H (70-110) mg/dL Calcium (8.4-10.2) mg/dL Microbiology - Last 24 Hours (Table) 08/21/24 02:51 Urine Culture - Final Urine,Clean Catch Melissa albicans 08/20/24 11:42 Anaerobic Culture - Preliminary Coccyx 08/20/24 11:42 Gram Stain - Preliminary Buttock Wound Culture - Preliminary Methicillin resist S. aureus 08/19/24 17:35 Blood Culture - Preliminary Blood
[2024-08-23 07:37] LABS: Glucose,Whole Blood 255 mg/dL (70-110)
[2024-08-23 08:57] LABS: Basophils # (A) 0.06 X 10*3/uL (0.00-0.10); Basophils % (A) 0.7 %; Eosinophils # (A) 0.54 X 10*3/uL (0.04-0.35); Eosinophils % (A) 5.9 %; HCT 33.3 % (39.6-50.0); Lymphocytes # (A) 0.53 X 10*3/uL (0.90-5.00); Lymphocytes % (A) 5.8 %; MCV 89.8 FL (80.0-97.0); Mean Platelet Volume 11.3 FL (9.5-12.2); Monocytes # (A) 0.92 X 10*3/uL (0.20-1.00); Monocytes % (A) 10.1 %; NRBC Per 100 WBC 0 X 10*3/uL (0.00-0.01); Neutrophils # (A) 6.99 X 10*3/uL (1.80-7.70); Neutrophils % (A) 77.1 %; Platelet Count 229 X 10*3/uL (140-440); RBC 3.71 X 10*6/uL (4.40-5.60); RDW 16.8 % (11.5-14.5); WBC 9.08 X 10*3/uL (4.50-10.00)
[2024-08-23] MEDS: VANCOMYCIN 1,500 MG in SODIUM CHLORIDE 0.9% 500 ML 500 ML IVPB SCH (09:06)
[2024-08-23 12:34] LABS: Glucose,Whole Blood 319 mg/dL (70-110)
[2024-08-23 17:08] LABS: Glucose,Whole Blood 247 mg/dL (70-110)
[2024-08-23] MEDS: WARFARIN 3 MG TAB PO ONE (17:33)
[2024-08-23 20:41] LABS: Glucose,Whole Blood 137 mg/dL (70-110)
--- NOTE | 2024-08-23 23:15 | P.PN ---
Subjective Progress Note Date: 08/23/24 Principal diagnosis: Reason for follow-up is a sacral osteomyelitis and UTI Patient is a 79-year-old male with a past medical history significant for hypertension hyperlipidemia type 2 diabetes mellitus CVA TIA atrial fibrillation has been in the hospital and has developed sacral pressure ulcer and was diagnosed with an osteomyelitis at [facility] but no culture were done now presenting to this facility with mental status change concerning for worsening sacral pressure ulcer and possible UTI. On today's evaluation that is 08/23/2024, the patient continues to be afebrile, the patient is on room air and breathing comfortably, the Pt denies having any chest pain or cough, the patient denies having any abdominal pain no vomiting or any diarrhea has been reported by the nursing staff or any worsening pain to the sacral wound area. Patient white count is 9.08 sacral wound culture growing MRSA Citrobacter and Pseudomonas Objective - Vital Signs Vital signs: Vital Signs Temp 98.4 F 08/23/24 07:49 Pulse 81 08/23/24 07:49 Resp 18 08/23/24 07:49 BP 115/61 08/23/24 07:49 Pulse Ox 94 L 08/23/24 09:27 FiO2 Intake & Output 08/22/24 08/23/24 08/23/24 18:59 06:59 18:59 Intake Total 820 1350 Output Total 600 3700 Balance 220 -2350 Intake: Oral 820 1350 Output: Urine 600 3700 Other: Voiding Method Indwelling Catheter Indwelling Catheter - Exam GENERAL DESCRIPTION: An elderly male lying in bed in no distress RESPIRATORY SYSTEM: Unlabored breathing , decreased breath sounds at bases HEART: S1 S2 regular rate and rhythm , ABDOMEN: Soft , no tenderness EXTREMITIES: No edema feet - Labs CBC & Chem 7: 08/23/24 05:52 08/23/24 04:29 Labs: Abnormal Lab Results - Last 24 Hours (Table) 08/22/24 08/22/24 08/23/24 Range/Units 12:20 16:59 04:29 RBC (4.40-5.60) X 10*6/uL Hgb (13.0-17.0) g/dL Hct (39.6-50.0) % MCHC (32.0-37.0) g/dL RDW (11.5-14.5) % Lymphocytes # (0.90-5.00) X 10*3/uL Eosinophils # (0.04-0.35) X 10*3/uL PT 19.7 H (10.0-12.5) sec INR 1.9 H (<1.2) BUN (9-20) mg/dL Glucose (74-99) mg/dL POC Glucose (mg/dL) 150 H 314 H (70-110) mg/dL Calcium (8.4-10.2) mg/dL 08/23/24 08/23/24 08/23/24 Range/Units 04:29 05:52 07:19 RBC 3.71 L (4.40-5.60) X 10*6/uL Hgb 10.0 L (13.0-17.0) g/dL Hct 33.3 L (39.6-50.0) % MCHC 30.0 L (32.0-37.0) g/dL RDW 16.8 H (11.5-14.5) % Lymphocytes # 0.53 L (0.90-5.00) X 10*3/uL Eosinophils # 0.54 H (0.04-0.35) X 10*3/uL PT (10.0-12.5) sec INR (<1.2) BUN 24 H (9-20) mg/dL Glucose 205 H (74-99) mg/dL POC Glucose (mg/dL) 255 H (70-110) mg/dL Calcium 8.0 L (8.4-10.2) mg/dL Microbiology - Last 24 Hours (Table) 08/20/24 11:42 Gram Stain - Preliminary Buttock Wound Culture - Preliminary Methicillin resist S. aureus Acinetobacter milton/haemol Pseudomonas aeruginosa 08/19/24 17:35 Blood Culture - Preliminary Blood 08/21/24 02:51 Urine Culture - Final Urine,Clean Catch Melissa albicans 08/20/24 11:42 Anaerobic Culture - Preliminary Coccyx Assessment and Plan (1) Stage IV pressure ulcer of sacral region Current Visit: Yes Status: Acute Code(s): L89.154 - PRESSURE ULCER OF SACRAL REGION, STAGE 4 SNOMED Code(s): 99448435012065 (2) Catheter-associated urinary tract infection Current Visit: Yes Status: Acute Code(s): T83.511A - I/I REACT D/T INDWELLING URETHRAL CATHETER, INIT; N39.0 - URINARY TRACT INFECTION, SITE NOT SPECIFIED SNOMED Code(s): 621672838 Plan: 1patient presented hospital mental status changes source is multifactorial in this patient who was noticed to have a significant cloudy purulent urine positive UA and concerning for catheter associated UTI patient also have a stage IV sacral pressure ulcer with wound palpable and clinically source of this infection 2-local sacral culture currently growing MRSA, drug-resistant Acinetobacter and Pseudomonas with sensitivities pending 3-patient will be continued with the vancomycin discontinue oral Flagyl, we will add meropenem pending sensitivity on the Pseudomonas aeruginosa and continue with the Diflucan Family the bedside multiple question answered, also discussed with the MEDICAL OFFICE COORDINATOR for admitting team Dictation was produced using [employer] dictation software. please excuse any grammatical, word or spelling errors. Time with Patient: Less than 30
[2024-08-24] MEDS: MEROPENEM 1 GM in SODIUM CHLORIDE 0.9% 100 ML IVPB SCH (00:26)
[2024-08-24 06:56] LABS: African American GFR (CKD) >90 (>60 ml/min/1.73 sqM); Non-African American GFR(CKD) 81 (>60 ml/min/1.73 sqM)
--- NOTE | 2024-08-24 07:24 | P.PN ---
Subjective Progress Note Date: 08/23/24 This is a pleasant 79-year-old male who presented to the emergency department from [facility] with concerns of altered mental status, possible UTI. Per daughter at the bedside patient had been recently at [facility] and discharged New 's Jacquelyn to [facility] for continued PT/OT therapy with a PICC line and IV antibiotics along with wound care for extensive ongoing sacral decubitus ulcer with osteomyelitis. Per daughter at the bedside patient had become altered and talking "loopy" and reports when he becomes altered it is usually from a urinary tract infection and called for EMS to take him to the hospital. CT brain was done showing no acute process, labs reviewed with no white count, afebrile, hemoglobin is 10.6, INR 2.2 as patient is on Coumadin and kidney functions within normal limits other than mildly elevated blood sugar. Patient primary care provider Dr. 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 Daughter at the bedside reports she does not want her father to return to [facility] on discharge. Social work will be consulted. Patient admitted for altered mental status with concerns of UTI and ongoing decubitus ulcer. Infectious disease consulted. 08/21/2024 Patient is seen in follow-up this morning and mentation is much improved per family at the bedside. 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 Patient does follow with Dr. Valverde at the wound care center outpatient. Patient is maintained on vancomycin with infectious disease following with concerns of infection at the decubitus ulcer site and there were concerns of possible urinary tract infection, Jones associated as patient has a chronic Jones on admission. Patient did have indwelling Jones catheter exchanged in the ER and family at the bedside reports he has been having an indwelling Jones catheter for the last few months. Patient is afebrile with no reports of chest pain or shortness of breath. Patient was able to have a large bowel movement and there is stool noted in the ostomy along with gas. Awaiting cultures and further recommendations from infectious disease regarding discharge planning. Patient also due to insurance coverage will need ECF for IV antibiotic therapy. Case management is following regarding this. 08/22/2024 Patient is seen in follow-up today with no overnight issues noted. Cultures of the sacrum are showing MRSA and CT scan was done positive for osteomyelitis. Patient does currently have a PICC line and is maintained on antibiotics with infectious disease following. Wound care consulted and will continue current wound care regimen. Case management/social work also following as patient will require IV antibiotics on discharge and has no insurance coverage for antibiotics in the home and looking into possibly [facility]. Urine cultures finalizing with Melissa and patient is maintained on Diflucan. Patient does have a chronic Jones which was exchanged in the ER. 08/23/2024 Patient is seen and evaluated in follow-up with infectious disease and wound care following. Patient does have wound VAC that has been reapplied and maintained on local wound care of the sacral region along with left hip and left lower extremity for ongoing wounds. Patient continues with chronic indwelling Jones catheter and is maintained on IV Lasix daily as patient normally takes Bumex although was noted to have some congestion on imaging. Will continue with the Lasix and transition back to Bumex on discharge. Follow-up and monitor kidney functions. Patient is afebrile currently sitting up eating on room air and reporting he wants to go home. Patient is extremely hard of hearing and family is at bedside. Patient does have an ostomy and continues to have stool output with no reports of abdominal pain or discomfort. Awaiting finalized cultures as some of the wound cultures are now showing Pseudomonas and awaiting sensitivities to discuss further with infectious disease regarding discharge planning. Patient does have a PICC line as patient was continued on Invanz most recently for osteomyelitis of the sacrum. Being transitioned to meropenem along with Flagyl and Diflucan as urine culture finalized with Melissa. Patient was at [facility] although refusing to go back and has been accepted at [facility] and again just awaiting finalized cultures to determine discharge antibiotics. Review of systems: Constitutional: No reports of fatigue, fever, or chills Cardiovascular: No reports of chest pain or palpitations Respiratory: No reports of shortness of breath or cough GI: No reports of nausea, vomiting, or diarrhea : No reports of dysuria or retention Neurovascular:reports of chronic generalized weakness All medications have been reviewed PHYSICAL EXAMINATION: GENERAL: The patient is awake, alert and oriented x 23, extremely hard of hearing, not in any acute distress. Well developed, elderly appearing HEENT: Pupils are round and equally reacting to light. EOMI. No scleral icterus. No conjunctival pallor. Normocephalic, atraumatic. No pharyngeal erythema. No thyromegaly. CARDIOVASCULAR: S1 and S2 muffled PULMONARY: Diminished breath sounds bilaterally otherwise some bronchial congestion noted but patient clears easily, no wheezing or crackles appreciated. ABDOMEN: Soft, nontender, nondistended, normoactive bowel sounds. No palpable organomegaly. Left side ostomy noted with stool and gas MUSCULOSKELETAL: No joint swelling or deformity. EXTREMITIES: No cyanosis, clubbing, or pedal edema. Left hand amputation noted NEUROLOGICAL: Gross neurological examination did not reveal any focal deficits. Diffusely weak SKIN: No rashes. Pale, wounds noted in HPI of the sacrum, left hip, and left lower extremity Assessment: Altered mental status, acute metabolic encephalopathy, possibly secondary to sacral wounds, improved History of extensive stage IV sacral wound, present on admission and had wound VAC previously, currently maintained on a PICC line and IV antibiotics from last week discharge, culture showing MRSA and CT scan is positive for osteomyelitis. Other preliminary cultures now showing Pseudomonas as well and awaiting finalized cultures Left hip unstageable ulcer, present on admission Left lateral ankle pressure ulcer, present on admission Concerns for possible acute urinary tract infection, present on admission, patient does have chronic indwelling Jones catheter for retention, suspicion is low and likely asymptomatic bacteriuria as patient denies having pain, burning, or frequency with urination, culture showing Melissa Diabetes mellitus, type II, uncontrolled with hyperglycemia, insulin-dependent Hyperlipidemia history Hypertension history History of atrial fibrillation, maintained on Coumadin History of neuropathy History of gangrene of the left toe and osteomyelitis Osteomyelitis of the sacral ulcer site with being recently hospitalized at [facility] and discharged to [facility] on 08/13/2024 with IV PICC line and antibiotics for a 6-week course Peripheral artery disease history History of CVA/TIA GI prophylaxis DVT prophylaxis Full code Plan: Patient is continued on antibiotics with infectious disease following. Culture showing MRSA and CT scan was positive for osteomyelitis. Patient continues with a PICC line and most likely will need IV antibiotics on discharge with plans on going to [facility]. Patient was at [facility] although family does not want him to return there Culture showing MRSA and some preliminary results just came showing Pseudomonas and will not be finalized until 08/24/2024. ID transitioning antibiotics to meropenem and discontinuing oral Flagyl along with continued vancomycin. Patient will likely continue on vancomycin, Diflucan for 3 days on discharge, and possible meropenem once cultures have finalized. Will need to update [facility] once we have final cultures to ensure antibiotics are covered. Patient does have a chronic indwelling Jones catheter for retention and also was placed due to extensive sacral wound. Patient's Jones catheter was exchanged in the ER on admission. Repeat urine culture showing Melissa, suspicion for UTI is low, likely asymptomatic bacteriuria Wound care evaluated and patient is maintained on wound VAC and continued wound care recommend Accu-Cheks before meals and at bedtime and will continue long-acting along with sliding scale and adjust accordingly Continue offloading and frequent position changes every 2 hours Patient is having bowel movements, will make bowel regimen as needed follow-up with repeat labs Patient does take Bumex daily and was on hold from admission with kidney functions improving. Patient with some slight bronchial congestion, IV fluids discontinued and will continue daily Lasix while hospitalized. Will resume Bum ex on discharge Case management/social work consult for discharge planning. Apparently his insurance does not cover in-home antibiotics and will require IV antibiotic on discharge and ECF. Family does not want to return to [facility] and referrals have been placed to [facility]. [facility] has accepted pending final antibiotic recommendations. Patient can be discharged on Monday per liaison if antibiotics are finalized. Will discuss with infectious disease regarding discharge antibiotics. Micro lab in [place] contacted and cultures should be available on 08/24/2024. Possible discharge in the next 24 to 48 hours The impression and plan of care has been dictated by Ximena Cisneros, Nurse Practitioner as directed. Dr. Missael MD I have performed a history and examination and MDM of this patient, discussed the same with the dictator, and agree with the dictator's assessment and plan as written ,documented as a scribe. Based on total visit time, I have performed more than 50% of the visit. Objective - Vital Signs Vital signs: Vital Signs Temp 98 F 08/23/24 12:55 Pulse 88 08/23/24 12:55 Resp 18 08/23/24 12:55 BP 114/48 08/23/24 12:55 Pulse Ox 94 L 08/23/24 12:55 FiO2 Intake & Output 08/23/24 08/23/24 08/24/24 06:59 18:59 06:59 Intake Total 1350 540 Output Total 3700 1300 Balance -2350 -760 Weight 98.883 kg Intake: Oral 1350 540 Output: Urine 3700 1300 Other: Voiding Method Indwelling Catheter Indwelling Catheter # Bowel Movements 1 - Labs CBC & Chem 7: 08/23/24 05:52 08/24/24 05:58 Labs: Abnormal Lab Results - Last 24 Hours (Table) 08/23/24 08/23/24 08/23/24 Range/Units 04:29 04:29 05:52 RBC 3.71 L (4.40-5.60) X 10*6/uL Hgb 10.0 L (13.0-17.0) g/dL Hct 33.3 L (39.6-50.0) % MCHC 30.0 L (32.0-37.0) g/dL RDW 16.8 H (11.5-14.5) % Lymphocytes # 0.53 L (0.90-5.00) X 10*3/uL Eosinophils # 0.54 H (0.04-0.35) X 10*3/uL PT 19.7 H (10.0-12.5) sec INR 1.9 H (<1.2) BUN 24 H (9-20) mg/dL Glucose 205 H (74-99) mg/dL POC Glucose (mg/dL) (70-110) mg/dL Calcium 8.0 L (8.4-10.2) mg/dL 08/23/24 08/23/24 08/23/24 Range/Units 07:19 12:27 17:04 RBC (4.40-5.60) X 10*6/uL Hgb (13.0-17.0) g/dL Hct (39.6-50.0) % MCHC (32.0-37.0) g/dL RDW (11.5-14.5) % Lymphocytes # (0.90-5.00) X 10*3/uL Eosinophils # (0.04-0.35) X 10*3/uL PT (10.0-12.5) sec INR (<1.2) BUN (9-20) mg/dL Glucose (74-99) mg/dL POC Glucose (mg/dL) 255 H 319 H 247 H (70-110) mg/dL Calcium (8.4-10.2) mg/dL Microbiology - Last 24 Hours (Table) 08/20/24 11:42 Gram Stain - Preliminary Buttock Wound Culture - Preliminary Methicillin resist S. aureus Acinetobacter milton/haemol Pseudomonas aeruginosa 08/19/24 17:35 Blood Culture - Preliminary Blood
[2024-08-24 07:26] LABS: INR 2.2 (<1.2); Prothrombin Time 22.1 sec (10.0-12.5)
[2024-08-24 07:45] LABS: Glucose,Whole Blood 143 mg/dL (70-110)
[2024-08-24 11:53] LABS: Glucose,Whole Blood 268 mg/dL (70-110)
--- NOTE | 2024-08-24 16:24 | P.PN ---
Subjective Progress Note Date: 08/24/24 Principal diagnosis: Reason for follow-up is a sacral osteomyelitis and UTI Patient is a 79-year-old male with a past medical history significant for hypertension hyperlipidemia type 2 diabetes mellitus CVA TIA atrial fibrillation has been in the hospital and has developed sacral pressure ulcer and was diagnosed with an osteomyelitis at [facility] but no culture were done now presenting to this facility with mental status change concerning for worsening sacral pressure ulcer and possible UTI. On today's evaluation that is 08/24/2024, patient did not have any fever and denies any chills, patient is breathing comfortably on room air, patient with no chest pain or cough patient did not have any abdominal pain nausea vomiting or any loose stools. Patient did have INR of 2.2 creatinine 0.91 Pseudomonas no multidrug-resistant only sensitive to Zerbaxa intermediate sensitive to meropenem Objective - Vital Signs Vital signs: Vital Signs Temp 97.6 F 08/24/24 07:33 Pulse 91 08/24/24 07:33 Resp 16 08/24/24 07:33 BP 118/55 08/24/24 07:33 Pulse Ox 93 L 08/24/24 07:33 FiO2 Intake & Output 08/23/24 08/24/24 08/24/24 18:59 06:59 18:59 Intake Total 540 650 Output Total 1300 1100 1500 Balance -760 -450 -1500 Weight 98.883 kg Intake: Oral 540 650 Output: Urine 1300 1100 1500 Other: Voiding Method Indwelling Catheter Indwelling Catheter # Bowel Movements 1 - Exam GENERAL DESCRIPTION: An elderly male lying in bed in no distress RESPIRATORY SYSTEM: Unlabored breathing , decreased breath sounds at bases HEART: S1 S2 regular rate and rhythm , ABDOMEN: Soft , no tenderness EXTREMITIES: No edema feet - Labs CBC & Chem 7: 08/23/24 05:52 08/24/24 05:58 Labs: Abnormal Lab Results - Last 24 Hours (Table) 08/23/24 08/23/24 08/23/24 Range/Units 12:27 17:04 20:25 PT (10.0-12.5) sec INR (<1.2) POC Glucose (mg/dL) 319 H 247 H 137 H (70-110) mg/dL 08/24/24 08/24/24 08/24/24 Range/Units 05:58 07:37 11:51 PT 22.1 H (10.0-12.5) sec INR 2.2 H (<1.2) POC Glucose (mg/dL) 143 H 268 H (70-110) mg/dL Microbiology - Last 24 Hours (Table) 08/20/24 11:42 Gram Stain - Preliminary Buttock Wound Culture - Preliminary Methicillin resist S. aureus Acinetobacter milton/haemol Pseudomonas aeruginosa Assessment and Plan (1) Stage IV pressure ulcer of sacral region Current Visit: Yes Status: Acute Code(s): L89.154 - PRESSURE ULCER OF SACRAL REGION, STAGE 4 SNOMED Code(s): 74306409926702 (2) Catheter-associated urinary tract infection Current Visit: Yes Status: Acute Code(s): T83.511A - I/I REACT D/T INDWELLING URETHRAL CATHETER, INIT; N39.0 - URINARY TRACT INFECTION, SITE NOT SPECIFIED SNOMED Code(s): 276140378 Plan: 1patient presented hospital mental status changes source is multifactorial in this patient who was noticed to have a significant cloudy purulent urine positive UA and concerning for catheter associated UTI patient also have a stage IV sacral pressure ulcer with wound palpable and clinically source of this infection 2-local sacral culture currently growing MRSA, drug-resistant Acinetobacter and Pseudomonas which is drug-resistant intermediate sensitive to meropenem sensitive to Zerbaxa 3-patient will be continued with the vancomycin discontinue meropenem and start the patient on Zerbaxa 3 g every 8 hours Dictation was produced using [employer] dictation software. please excuse any grammatical, word or spelling errors.
[2024-08-24] MEDS: CEFTOLOZANE/TAZOBACTAM 3 GM in SODIUM CHLORIDE 0.9% 100 ML IV SCH (16:59)
[2024-08-24 17:18] LABS: Glucose,Whole Blood 232 mg/dL (70-110)
[2024-08-24] MEDS: WARFARIN 3 MG TAB PO ONE (17:46)
[2024-08-24 20:15] LABS: Glucose,Whole Blood 206 mg/dL (70-110)
--- NOTE | 2024-08-24 21:30 | P.PN ---
Subjective Progress Note Date: 08/24/24 This is a pleasant 79-year-old male who presented to the emergency department from [facility] with concerns of altered mental status, possible UTI. Per daughter at the bedside patient had been recently at [facility] and discharged New Year's Jacquelyn to [facility] for continued PT/OT therapy with a PICC line and IV antibiotics along with wound care for extensive ongoing sacral decubitus ulcer with osteomyelitis. Per daughter at the bedside patient had become altered and talking "loopy" and reports when he becomes altered it is usually from a urinary tract infection and called for EMS to take him to the hospital. CT brain was done showing no acute process, labs reviewed with no w clayton count, afebrile, hemoglobin is 10.6, INR 2.2 as patient is on Coumadin and kidney functions within normal limits other than mildly elevated blood sugar. Patient primary care provider Dr. 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 Daughter at the bedside reports she does not want her father to return to [facility] on discharge. Social work will be consulted. Patient admitted for altered mental status with concerns of UTI and ongoing decubitus ulcer. Infectious disease consulted. 08/21/2024 Patient is seen in follow-up this morning and mentation is much improved per family at the bedside. 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 Shae moses does follow with Dr. Valverde at the wound care center outpatient. Patient is maintained on vancomycin with infectious disease following with concerns of infection at the decubitus ulcer site and there were concerns of possible urinary tract infection, Ojnes associated as patient has a chronic Jones on admission. Patient did have indwelling Jones catheter exchanged in the ER and family at the bedside reports he has been having an indwelling Jones catheter for the last few months. Patient is afebrile with no reports of chest pain or shortness of breath. Patient was able to have a large bowel movement and there is stool noted in the ostomy along with gas. Awaiting cultures and further recommendations from infectious disease regarding discharge planning. Patient also due to insurance coverage will need ECF for IV antibiotic therapy. Case management is following regarding this. 08/22/2024 Patient is seen in follow-up today with no overnight issues noted. Cultures of the sacrum are showing MRSA and CT scan was done positive for osteomyelitis. Patient does currently have a PICC line and is maintained on antibiotics with infectious disease following. Wound care consulted and will continue current wound care regimen. Case management/social work also following as patient will require IV antibiotics on discharge and has no insurance coverage for antibiotics in the home and looking into possibly [facility]. Urine cultures finalizing with Melissa and patient is maintained on Diflucan. Patient does have a chronic Jones which was exchanged in the ER. 08/23/2024 Patient is seen and evaluated in follow-up with infectious disease and wound care following. Patient does have wound VAC that has been reapplied and maintained on local wound care of the sacral region along with left hip and left lower extremity for ongoing wounds. Patient continues with chronic indwelling Jones catheter and is maintained on IV Lasix daily as patient normally takes Bumex although was noted to have some congestion on imaging. Will continue with the Lasix and transition back to Bumex on discharge. Follow-up and monitor kidney functions. Patient is afebrile currently sitting up eating on room air and reporting he wants to go home. Patient is extremely hard of hearing and family is at bedside. Patient does have an ostomy and continues to have stool output with no reports of abdominal pain or discomfort. Awaiting finalized cultures as some of the wound cultures are now showing Pseudomonas and awaiting sensitivities to discuss further with infectious disease regarding discharge p po. Patient does have a PICC line as patient was continued on Invanz most recently for osteomyelitis of the sacrum. Being transitioned to meropenem along with Flagyl and Diflucan as urine culture finalized with Melissa. Patient was at [facility] although refusing to go back and has been accepted at [facility] and again just awaiting finalized cultures to determine discharge antibiotics. 08/24/2024 Patient evaluated in follow up on the medical floor. Wound vac in place. Jones catheter in place. Wound culture not final yet waiting on sensitivites for the third organism. Because of this not cleared yet for DC by infectious disease and now discharge will be postponed until monday. Continues on IV zerbaxa, IV vancomycin. Review of systems: Constitutional: No reports of fatigue, fever, or chills Cardiovascular: No reports of chest pain or palpitations Respiratory: No reports of shortness of breath or cough GI: No reports of nausea, vomiting, or diarrhea : No reports of dysuria or retention Neurovascular:reports of chronic generalized weakness All medications have been reviewed PHYSICAL EXAMINATION: GENERAL: The patient is awake, alert and oriented x 23, extremely hard of hearing, not in any acute distress. Well developed, elderly appearing HEENT: Pupils are round and equally reacting to light. EOMI. No scleral icterus. No conjunctival pallor. Normocephalic, atraumatic. No pharyngeal erythema. No thyromegaly. CARDIOVASCULAR: S1 and S2 muffled PULMONARY: Diminished breath sounds bilaterally otherwise some bronchial congestion noted but patient clears easily, no wheezing or crackles appreciated. ABDOMEN: Soft, nontender, nondistended, normoactive bowel sounds. No palpable organomegaly. Left side ostomy noted with stool and gas MUSCULOSKELETAL: No joint swelling or deformity. EXTREMITIES: No cyanosis, clubbing, or pedal edema. Left hand amputation noted NEUROLOGICAL: Gross neurological examination did not reveal any focal deficits. Diffusely weak SKIN: No rashes. Pale, wounds noted in HPI of the sacrum, left hip, and left lower extremity Assessment: Altered mental status, acute metabolic encephalopathy, possibly secondary to sacral wounds, improved History of extensive stage IV sacral wound, present on admission and had wound VAC previously, currently maintained on a PICC line and IV antibiotics from last week discharge, culture showing MRSA and CT scan is positive for osteomyelitis. Other preliminary cultures now showing Pseudomonas as well and awaiting finalized cultures Left hip unstageable ulcer, present on admission Left lateral ankle pressure ulcer, present on admission Concerns for possible acute urinary tract infection, present on admission, patient does have chronic indwelling Jones catheter for retention, suspicion is low and likely asymptomatic bacteriuria as patient denies having pain, burning, or frequency with urination, culture showing Melissa Diabetes mellitus, type II, uncontrolled with hyperglycemia, insulin-dependent Hyperlipidemia history Hypertension history History of atrial fibrillation, maintained on Coumadin History of neuropathy History of gangrene of the left toe and osteomyelitis Osteomyelitis of the sacral ulcer site with being recently hospitalized at [facility] and discharged to [facility] on 08/13/2024 with IV PICC line and antibiotics for a 6-week course Peripheral artery disease history History of CVA/TIA GI prophylaxis DVT prophylaxis Full code Plan: Patient is continued on antibiotics with infectious disease following. Culture showing MRSA and CT scan was positive for osteomyelitis. Patient continues with a PICC line and most likely will need IV antibiotics on discharge with plans on going to [facility]. Patient was at [facility] although family does not want him to return there Culture showing MRSA and some preliminary results just came showing Pseudomonas and will not be finalized until 08/24/2024. ID transitioning antibiotics to meropenem and discontinuing oral Flagyl along with continued vancomycin. Patient will likely continue on vancomycin, Diflucan for 3 days on discharge, and possible meropenem once cultures have finalized. Will need to update [facility] once we have final cultures to ensure antibiotics are covered. Patient does have a chronic indwelling Jones catheter for retention and also was placed due to extensive sacral wound. Patient's Jones catheter was exchanged in the ER on admission. Repeat urine culture showing Melissa, suspicion for UTI is low, likely asymptomatic bacteriuria Wound care evaluated and patient is maintained on wound VAC and continued wound care recommend Accu-Cheks before meals and at bedtime and will continue long-acting along with sliding scale and adjust accordingly Continue offloading and frequent position changes every 2 hours Patient is having bowel movements, will make bowel regimen as needed follow-up with repeat labs Patient does take Bumex daily and was on hold from admission with kidney functions improving. Patient with some slight bronchial congestion, IV fluids discontinued and will continue daily Lasix while hospitalized. Will resume Bumex on discharge Case management/social work consult for discharge planning. Apparently his insurance does not cover in-home antibiotics and will require IV antibiotic on discharge and ECF. Family does not want to return to [facility] and referrals have been placed to [facility]. [facility] has accepted pending final antibiotic recommendations. Patient can be discharged on Monday per liaison if antibiotics are finalized. Will discuss with infectious disease regarding discharge antibiotics. Micro lab in [place] contacted and cultures should be available on 08/24/2024. As of this afternoon the third organism sensitivites are not available and now discharge will be postponed Monday08/26/24. The impression and plan of care has been dictated by Kayla Moy, Nurse Practitioner as directed. Dr. Missael MD I have performed a history and physical examination and medical decision making of this patient, discussed the same with the dictator, and agree with the dictators assessment and plan as written, documented as a scribe. Based on total visit time, I have performed more than 50% of this visit. Objective - Vital Signs Vital signs: Vital Signs Temp 98.1 F 08/24/24 11:50 Pulse 104 H 08/24/24 11:50 Resp 16 08/24/24 11:50 BP 115/71 08/24/24 11:50 Pulse Ox 91 L 08/24/24 11:50 FiO2 Intake & Output 08/24/24 08/24/24 08/25/24 06:59 18:59 06:59 Intake Total 650 Output Total 1100 2300 Balance -450 -2300 Intake: Oral 650 Output: Urine 1100 2300 Other: Voiding Method Indwelling Catheter Indwelling Catheter # Bowel Movements 1 - Labs CBC & Chem 7: 08/23/24 05:52 08/24/24 05:58 Labs: Abnormal Lab Results - Last 24 Hours (Table) 08/24/24 08/24/24 08/24/24 Range/Units 05:58 07:37 11:51 PT 22.1 H (10.0-12.5) sec INR 2.2 H (<1.2) POC Glucose (mg/dL) 143 H 268 H (70-110) mg/dL 08/24/24 08/24/24 Range/Units 17:13 20:13 PT (10.0-12.5) sec INR (<1.2) POC Glucose (mg/dL) 232 H 206 H (70-110) mg/dL Microbiology - Last 24 Hours (Table) 08/20/24 11:42 Gram Stain - Final Buttock Wound Culture - Final Methicillin resist S. aureus Acinetobacter milton/haemol Pseudomonas aeruginosa 08/20/24 11:42 Anaerobic Culture - Final Coccyx Assessment and Plan Time with Patient: Less than 30
[2024-08-25] MEDS: HYDROcodone/APAP 5-325MG 1 EACH TAB PO PRN (00:06)
[2024-08-25 07:40] LABS: Glucose,Whole Blood 288 mg/dL (70-110)
[2024-08-25 09:01] LABS: INR 2.3 (<1.2); Prothrombin Time 23.4 sec (10.0-12.5)
[2024-08-25 09:13] LABS: African American GFR (CKD) >90 (>60 ml/min/1.73 sqM); Non-African American GFR(CKD) 82 (>60 ml/min/1.73 sqM)
[2024-08-25] MEDS: VANCOMYCIN TROUGH DUE 1 EACH MISC MISCELLANE ONE (09:41)
[2024-08-25 10:38] LABS: Appearance,Urine Clear (Clear); Bilirubin,Urine Negative (Negative); Blood,Urine Negative (Negative); Color,Urine Colorless; Glucose,Urine (UA) 3+ (Negative); Ketones,Urine Negative (Negative); Leukocyte Esterase,Urine Negative (Negative); Nitrite,Urine Negative (Negative); Protein,Urine Negative (Negative); Specific Gravity,Urine 1.007 (1.001-1.035); Urobilinogen,Urine <2.0 mg/dL (<2.0)
[2024-08-25 12:16] LABS: Glucose,Whole Blood 337 mg/dL (70-110)
--- NOTE | 2024-08-25 13:41 | P.PN ---
Subjective Progress Note Date: 08/25/24 This is a pleasant 79-year-old male who presented to the emergency department from [facility] with concerns of altered mental status, possible UTI. Per daughter at the bedside patient had been recently at [facility] and discharged New Year's Jacquelyn to [facility] for continued PT/OT therapy with a PICC line and IV antibiotics along with wound care for extensive ongoing sacral decubitus ulcer with osteomyelitis. Per daughter at the bedside patient had become altered and talking "loopy" and reports when he becomes altered it is usually from a urinary tract infection and called for EMS to take him to the hospital. CT brain was done showing no acute process, labs reviewed with no w clayton count, afebrile, hemoglobin is 10.6, INR 2.2 as patient is on Coumadin and kidney functions within normal limits other than mildly elevated blood sugar. Patient primary care provider Dr. 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 Daughter at the bedside reports she does not want her father to return to [facility] on discharge. Social work will be consulted. Patient admitted for altered mental status with concerns of UTI and ongoing decubitus ulcer. Infectious disease consulted. 08/21/2024 Patient is seen in follow-up this morning and mentation is much improved per family at the bedside. 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 Shae moses does follow with Dr. Valverde at the wound care center outpatient. Patient is maintained on vancomycin with infectious disease following with concerns of infection at the decubitus ulcer site and there were concerns of possible urinary tract infection, Jones associated as patient has a chronic Jones on admission. Patient did have indwelling Jones catheter exchanged in the ER and family at the bedside reports he has been having an indwelling Jones catheter for the last few months. Patient is afebrile with no reports of chest pain or shortness of breath. Patient was able to have a large bowel movement and there is stool noted in the ostomy along with gas. Awaiting cultures and further recommendations from infectious disease regarding discharge planning. Patient also due to insurance coverage will need ECF for IV antibiotic therapy. Case management is following regarding this. 08/22/2024 Patient is seen in follow-up today with no overnight issues noted. Cultures of the sacrum are showing MRSA and CT scan was done positive for osteomyelitis. Patient does currently have a PICC line and is maintained on antibiotics with infectious disease following. Wound care consulted and will continue current wound care regimen. Case management/social work also following as patient will require IV antibiotics on discharge and has no insurance coverage for antibiotics in the home and looking into possibly [facility]. Urine cultures finalizing with Melissa and patient is maintained on Diflucan. Patient does have a chronic Jones which was exchanged in the ER. 08/23/2024 Patient is seen and evaluated in follow-up with infectious disease and wound care following. Patient does have wound VAC that has been reapplied and maintained on local wound care of the sacral region along with left hip and left lower extremity for ongoing wounds. Patient continues with chronic indwelling Jones catheter and is maintained on IV Lasix daily as patient normally takes Bumex although was noted to have some congestion on imaging. Will continue with the Lasix and transition back to Bumex on discharge. Follow-up and monitor kidney functions. Patient is afebrile currently sitting up eating on room air and reporting he wants to go home. Patient is extremely hard of hearing and family is at bedside. Patient does have an ostomy and continues to have stool output with no reports of abdominal pain or discomfort. Awaiting finalized cultures as some of the wound cultures are now showing Pseudomonas and awaiting sensitivities to discuss further with infectious disease regarding discharge p po. Patient does have a PICC line as patient was continued on Invanz most recently for osteomyelitis of the sacrum. Being transitioned to meropenem along with Flagyl and Diflucan as urine culture finalized with Melissa. Patient was at [facility] although refusing to go back and has been accepted at [facility] and again just awaiting finalized cultures to determine discharge antibiotics. 08/24/2024 Patient evaluated in follow up on the medical floor. Wound vac in place. Jones catheter in place. Wound culture not final yet waiting on sensitivites for the third organism. Because of this not cleared yet for DC by infectious disease and now discharge will be postponed until monday. Continues on IV zerbaxa, IV vancomycin. 08/25/2024 Patient is evaluated today in follow-up on the medical floor. [place] was given and patient reports improvement in his pain control as family does want to avoid IV pain medications as they feel the patient gets increasingly drowsy with this. All final cultures are back and patient has been started on IV Zerbaxa and continues on IV vancomycin with infectious disease following closely. Patient is no acute complaints at this time. He is making stool from the ostomy. Urine output is adequate indwelling Jones catheter remains in place. He is reporting no acute complaints, no chest pain or shortness of breath. INR of 2.3. The bedside had felt that patient had worsening mentation and was altered however patient appears to be alert and oriented and baseline today on evaluation at the bedside. A urinalysis was repeated and near normal with the only abnormality of 3+ glucose. Patient remains on IV Lasix daily. Review of systems: Constitutional: No reports of fatigue, fever, or chills Cardiovascular: No reports of chest pain or palpitations Respiratory: No reports of shortness of breath or cough GI: No reports of nausea, vomiting, or diarrhea : No reports of dysuria or retention Neurovascular:reports of chronic generalized weakness All medications have been reviewed PHYSICAL EXAMINATION: GENERAL: The patient is awake, alert and oriented x 23, extremely hard of hearing, not in any acute distress. Well developed, elderly appearing HEENT: Pupils are round and equally reacting to light. EOMI. No scleral icterus. No conjunctival pallor. Normocephalic, atraumatic. No pharyngeal erythema. No thyromegaly. CARDIOVASCULAR: S1 and S2 muffled PULMONARY: Diminished breath sounds bilaterally otherwise some bronchial congestion noted but patient clears easily, no wheezing or crackles appreciated. ABDOMEN: Soft, nontender, nondistended, normoactive bowel sounds. No palpable organomegaly. Left side ostomy noted with stool and gas MUSCULOSKELETAL: No joint swelling or deformity. EXTREMITIES: No cyanosis, clubbing, or pedal edema. Left hand amputation noted NEUROLOGICAL: Gross neurological examination did not reveal any focal deficits. Diffusely weak SKIN: No rashes. Pale, wounds noted in HPI of the sacrum, left hip, and left lower extremity Assessment: Altered mental status, acute metabolic encephalopathy, possibly secondary to sacral wounds, improved History of extensive stage IV sacral wound, present on admission and had wound VAC previously, currently maintained on a PICC line and IV antibiotics from last week discharge, culture showing MRSA and CT scan is positive for osteomyelitis. Other preliminary cultures now showing Pseudomonas as well and awaiting finalized cultures Left hip unstageable ulcer, present on admission Left lateral ankle pressure ulcer, present on admission Concerns for possible acute urinary tract infection, present on admission, patient does have chronic indwelling Jones catheter for retention, suspicion is low and likely asymptomatic bacteriuria as patient denies having pain, burning, or frequency with urination, culture showing Melissa Diabetes mellitus, type II, uncontrolled with hyperglycemia, insulin-dependent Hyperlipidemia history Hypertension history History of atrial fibrillation, maintained on Coumadin History of neuropathy History of gangrene of the left toe and osteomyelitis Osteomyelitis of the sacral ulcer site with being recently hospitalized at [facility] and discharged to [facility] on 08/13/2024 with IV PICC line and antibiotics for a 6-week course Peripheral artery disease history History of CVA/TIA GI prophylaxis DVT prophylaxis Full code Plan: Patient is continued on antibiotics with infectious disease following. Culture showing MRSA and CT scan was positive for osteomyelitis. Patient continues with a PICC line and most likely will need IV antibiotics on discharge with plans on going to [facility]. Patient was at [facility] although family does not want him to return there Culture showing MRSA and some preliminary results just came showing Pseudomonas and will not be finalized until 08/24/2024. ID transitioning antibiotics to meropenem and discontinuing oral Flagyl along with continued vancomycin. Patient will likely continue on vancomycin, Diflucan for 3 days on discharge, and possible meropenem once cultures have finalized. Will need to update [facility] once we have final cultures to ensure antibiotics are covered. Patient does have a chronic indwelling Jones catheter for retention and also was placed due to extensive sacral wound. Patient's Jones catheter was exchanged in the ER on admission. Repeat urine culture showing Melissa, suspicion for UTI is low, likely asymptomatic bacteriuria Wound care evaluated and patient is maintained on wound VAC and continued wound care recommend Accu-Cheks before meals and at bedtime and will continue long-acting along with sliding scale and adjust accordingly Continue offloading and frequent position changes every 2 hours Patient is having bowel movements, will make bowel regimen as needed follow-up with repeat labs Patient does take Bumex daily and was on hold from admission with kidney functions improving. Patient with some slight bronchial congestion, IV fluids discontinued and will continue daily Lasix while hospitalized. Will resume Bumex on discharge Case management/social work consult for discharge planning. Apparently his insurance does not cover in-home antibiotics and will require IV antibiotic on discharge and ECF. Family does not want to return to [facility] and referrals have been placed to [facility] has accepted pending final antibiotic recommendations. Will discuss with infectious disease regarding discharge antibiotics. Micro lab in [place] contacted and cultures should be available on 08/24/2024. As of this Monday afternoon the third organism sensitivites are not available and now discharge will be postponed Monday08/26/24. All cultures and sensitivites are back patient is on combination of zerbaxa and vancomycin. Discharge in the next 24 hours. The impression and plan of care has been dictated by Kayla Moy, Nurse Practitioner as directed. Dr. Missael MD I have performed a history and physical examination and medical decision making of this patient, discussed the same with the dictator, and agree with the dictators assessment and plan as written, documented as a scribe. Based on total visit time, I have performed more than 50% of this visit. Objective - Vital Signs Vital signs: Vital Signs Temp 98.4 F 08/25/24 11:39 Pulse 89 08/25/24 11:39 Resp 16 08/25/24 11:39 BP 120/66 08/25/24 11:39 Pulse Ox 99 08/25/24 11:39 FiO2 Intake & Output 08/24/24 08/25/24 08/25/24 18:59 06:59 18:59 Intake Total 480 236 Output Total 2300 725 1600 Balance -2300 -245 -1364 Intake: Oral 480 236 Output: Urine 2300 425 1600 Stool 300 Other: Voiding Method Indwelling Catheter Indwelling Catheter Indwelling Catheter # Bowel Movements 1 1 - Labs CBC & Chem 7: 08/23/24 05:52 08/25/24 08:32 Labs: Abnormal Lab Results - Last 24 Hours (Table) 08/24/24 08/24/24 08/25/24 Range/Units 17:13 20:13 07:33 PT (10.0-12.5) sec INR (<1.2) POC Glucose (mg/dL) 232 H 206 H 288 H (70-110) mg/dL Urine Glucose (UA) (Negative) 08/25/24 08/25/24 08/25/24 Range/Units 08:32 10:00 12:15 PT 23.4 H (10.0-12.5) sec INR 2.3 H (<1.2) POC Glucose (mg/dL) 337 H (70-110) mg/dL Urine Glucose (UA) 3+ H (Negative) Microbiology - Last 24 Hours (Table) 08/19/24 17:35 Blood Culture - Final Blood 08/20/24 11:42 Gram Stain - Final Buttock Wound Culture - Final Methicillin resist S. aureus Acinetobacter milton/haemol Pseudomonas aeruginosa 08/20/24 11:42 Anaerobic Culture - Final Coccyx Assessment and Plan Time with Patient: Less than 30
--- NOTE | 2024-08-25 14:58 | P.PN ---
Subjective Progress Note Date: 08/25/24 Principal diagnosis: Reason for follow-up is a sacral osteomyelitis and UTI Patient is a 79-year-old male with a past medical history significant for hypertension hyperlipidemia type 2 diabetes mellitus CVA TIA atrial fibrillation has been in the hospital and has developed sacral pressure ulcer and was diagnosed with an osteomyelitis at [facility] but no culture were done now presenting to this facility with mental status change concerning for worsening sacral pressure ulcer and possible UTI. On today's evaluation that is 08/25/2024, Patient is afebrile patient is currently on 2 L nasal cannula oxygen and denies having any shortness of breath, the patient denies any chest pain or cough, the patient denies any nausea vomiting did not have any abdominal pain and no diarrhea, some mental status changes reported by the nursing staff. Patient did have a repeat UA that was negative INR is 2.3 Objective - Vital Signs Vital signs: Vital Signs Temp 97.7 F 08/25/24 07:30 Pulse 94 08/25/24 07:30 Resp 15 08/25/24 07:30 BP 128/70 08/25/24 07:30 Pulse Ox 98 08/25/24 07:30 FiO2 Intake & Output 08/24/24 08/25/24 08/25/24 18:59 06:59 18:59 Intake Total 480 236 Output Total 2300 725 Balance -2300 -245 236 Intake: Oral 480 236 Output: Urine 2300 425 Stool 300 Other: Voiding Method Indwelling Catheter Indwelling Catheter Indwelling Catheter # Bowel Movements 1 1 - Exam GENERAL DESCRIPTION: An elderly male lying in bed in no distress RESPIRATORY SYSTEM: Unlabored breathing , decreased breath sounds at bases HEART: S1 S2 regular rate and rhythm , ABDOMEN: Soft , no tenderness EXTREMITIES: No edema feet - Labs CBC & Chem 7: 08/23/24 05:52 08/25/24 08:32 Labs: Abnormal Lab Results - Last 24 Hours (Table) 08/24/24 08/24/24 08/24/24 Range/Units 11:51 17:13 20:13 PT (10.0-12.5) sec INR (<1.2) POC Glucose (mg/dL) 268 H 232 H 206 H (70-110) mg/dL Urine Glucose (UA) (Negative) 01/12/25 01/12/25 01/12/25 Range/Units 07:33 08:32 10:00 PT 23.4 H (10.0-12.5) sec INR 2.3 H (<1.2) POC Glucose (mg/dL) 288 H (70-110) mg/dL Urine Glucose (UA) 3+ H (Negative) Microbiology - Last 24 Hours (Table) 08/19/24 17:35 Blood Culture - Final Blood 08/20/24 11:42 Gram Stain - Final Buttock Wound Culture - Final Methicillin resist S. aureus Acinetobacter milton/haemol Pseudomonas aeruginosa 08/20/24 11:42 Anaerobic Culture - Final Coccyx Assessment and Plan (1) Stage IV pressure ulcer of sacral region Current Visit: Yes Status: Acute Code(s): L89.154 - PRESSURE ULCER OF SACRAL REGION, STAGE 4 SNOMED Code(s): 29453713035767 (2) Catheter-associated urinary tract infection Current Visit: Yes Status: Acute Code(s): T83.511A - I/I REACT D/T INDWELLING URETHRAL CATHETER, INIT; N39.0 - URINARY TRACT INFECTION, SITE NOT SPECIFIED SNOMED Code(s): 561037422 Plan: 1patient presented hospital mental status changes source is multifactorial in this patient who was noticed to have a significant cloudy purulent urine positive UA and concerning for catheter associated UTI patient also have a stage IV sacral pressure ulcer with wound palpable and clinically source of this infection 2-local sacral culture currently growing MRSA, drug-resistant Acinetobacter and Pseudomonas which is drug-resistant intermediate sensitive to meropenem sensitive to Zerbaxa 3-patient will be continued with the vancomycin along with Zerbaxa 3 g every 8 hours, will need for another 5 weeks to finish course of therapy Dictation was produced using [employer] dictation software. please excuse any grammatical, word or spelling errors. Time with Patient: Less than 30
[2024-08-25 17:20] LABS: Glucose,Whole Blood 209 mg/dL (70-110)
[2024-08-25] MEDS: WARFARIN 3 MG TAB PO ONE (17:37)
[2024-08-25 20:21] LABS: Glucose,Whole Blood 241 mg/dL (70-110)
[2024-08-26] MEDS: CEFTOLOZANE/TAZOBACTAM 3 GM in SODIUM CHLORIDE 0.9% 100 ML IV SCH (04:06)
[2024-08-26 05:11] LABS: INR 2.6 (<1.2); Prothrombin Time 25.9 sec (10.0-12.5)
[2024-08-26 05:28] LABS: African American GFR (CKD) >90 (>60 ml/min/1.73 sqM); Anion Gap 3 mmol/L; Blood Urea Nitrogen 33 mg/dL (9-20); Calcium 8.1 mg/dL (8.4-10.2); Carbon Dioxide 32 mmol/L (22-30); Chloride 106 mmol/L (98-107); Glucose 174 mg/dL (74-99); Magnesium 1.7 mg/dL (1.6-2.3); Non-African American GFR(CKD) 84 (>60 ml/min/1.73 sqM); Potassium 3.1 mmol/L (3.5-5.1); Sodium 141 mmol/L (137-145)
[2024-08-26 07:19] LABS: Glucose,Whole Blood 209 mg/dL (70-110)
[2024-08-26] MEDS ORDERED: Magnesium Replacement Protocol 1 EACH MISC MISCELLANE PRN (09:01)
--- NOTE | 2024-08-26 09:12 | P.DS ---
Providers Date of admission: 08/21/24 12:13 Attending physician: Bushra Morrissey Consults: 08/19/24 18:21 Consult Physician Routine Consulting Provider: Keaton Valadez Consult Reason/Comments: uti,ulcer Do you want consulting provider notified?: Yes Primary care physician: [facility] Course: Final Diagnosis Altered mental status, acute metabolic encephalopathy, possibly secondary to sacral wounds, improved History of extensive stage IV sacral wound, present on admission and had wound VAC previously, currently maintained on a PICC line and IV antibiotics from last week discharge, culture showing MRSA and CT scan is positive for osteomyelitis. Other preliminary cultures now showing Pseudomonas as well and awaiting finalized cultures Left hip unstageable ulcer, present on admission Left lateral ankle pressure ulcer, present on admission Concerns for possible acute urinary tract infection, present on admission, patient does have chronic indwelling Wilder catheter for retention, suspicion is low and likely asymptomatic bacteriuria as patient denies having pain, burning, or frequency with urination, culture showing Eliseo Diabetes mellitus, type II, uncontrolled with hyperglycemia, insulin-dependent Hyperlipidemia history Hypertension history History of atrial fibrillation, maintained on Coumadin History of neuropathy 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 Patient will continue on IV antibiotics through the PICC line for the next 5 weeks. Patient will continue with IV Zerba xa and IV vancomycin as recommended. Local wound care as described. Repeat blood work weekly patient will require close follow-up with Dr. Valadez and the wound care center on discharge. Continue IV vancomycin pharmacy to dose for 5 weeks of antibiotic therapy Continue IV zerbaxa Q8h for 5 weeks total of antibiotic therapy Blood work weekly x 5 weeks Wound Care Left hip: Apply honey gel and border foam Change Monday Sacrum: NPWT at 150 mm/hg contiuous pressure with black foam. Wound Vac to Sacrum pressure ulcer Continuous 125mmHg Medium intensity. Black granufoam. If issues with wound vac or until reapplied; use medihoney with wet to dry dressing on the sacrum and change Mon. Patient needs close follow up with either wound care [place] the [place] [facility] OR follow up at [facility] for further recommendations and monitoring To the Ankle apply [facility] with optifoam and change monday or as needed if dressing is soiled Continue with indwelling wilder catheter Hospital Course This is a pleasant 79-year-old male who presented to the emergency department from [facility] with concerns of altered mental status, possible UTI. Per daughter at the bedside patient had been recently at [facility] and discharged New 's Jacquelyn to [facility] for continued PT/OT therapy with a PICC line and IV antibiotics along with wound care for extensive ongoing sacral decubitus ulcer with osteomyelitis. Per daughter at the bedside patient had become altered and talking "loopy" and reports when he becomes altered it is usually from a urinary tract infection and called for EMS to take him to the hospital. CT brain was done showing no acute process, labs reviewed with no white count, afebrile, hemoglobin is 10.6, INR 2.2 as patient is on Coumadin and kidney functions within normal limits other than mildly elevated blood sugar. Patient primary care provider Dr. Aradna with past medical history of atrial fibrillation, CVA, diabetes, gangrene of the left foot and toe, osteoarthritis, hyperlipidemia, hypertension, neuropathy, peripheral artery disease, chronic kidney disease. Daughter at the bedside reports she does not want her father to return to [facility] on discharge. Social work will be consulted. Patient admitted for altered mental status with concerns of UTI and ongoing decubitus ulcer. Infectious disease consulted. Patient does follow with Dr. Valverde at the wound care center outpatient. Patient is maintained on vancomycin with infectious disease following with concerns of infection at the decubitus ulcer site and there were concerns of possible urinary tract infection, Wilder associated as patient has a chronic Wilder on admission. Patient did have indwelling Wilder catheter exchanged in the ER and family at the bedside reports he has been having an indwelling Wilder catheter for the last few months. Patient is afebrile with no reports of chest pain or shortness of breath. Patie nt was able to have a large bowel movement and there is stool noted in the ostomy along with gas. Cultures of the sacrum are showing MRSA and CT scan was done positive for osteomyelitis. Patient does currently have a PICC line and is maintained on antibiotics with infectious disease following. Wound care consulted and will continue current wound care regimen. Wound Vac reapplied to sacrum with recommendations to continue on discharge. Final wound cultures showing MRSA, acinetobacter and pseudomonas to the sacrum. Urine culture showing eliseo. Patient has no acute complaints and has been cleared for discharge to [facility] with 5 weeks of antibiotic therapy with Vancomycin and Zerbaxa. ID following closely. Please see medication reconciliation for a list of current medications. Thank you for allowing us to participate in the care of this patient. The impression and plan of care has been dictated by Kayla Moy, Nurse Practitioner as directed. Dr. Missael MD I have performed a history and physical examination and medical decision making of this patient, discussed the same with the dictator, and agree with the dictators assessment and plan as written, documented as a scribe. Based on total visit time, I have performed more than 50% of this visit. Patient Condition at Discharge: Fair Plan - Discharge Summary Discharge Rx Participant: Yes New Discharge Prescriptions: New Lactulose [Cephulac] 20 gm PO BID PRN ml PRN Reason: Constipation Fluconazole [Diflucan] 100 mg PO DAILY #7 tab Ceftolozane/Tazobactam [Zerbaxa 1.5 Gram Vial] 3 gm IV Q8H 35 Days #105 each HYDROcodone/APAP 5-325MG [[place] 5-325] 1 each PO Q6HR PRN #8 tab PRN Reason: Pain Vancomycin 1,500 mg IVPB Q24HR 35 Days each Continue Diltiazem Cd [Cardizem CD] 180 mg PO QAM Aspirin 81 mg PO DAILY #90 chew Ammonium Lactate Lotion [Lac-Hydrin 12% Lotion] 1 applic TOPICAL HS Acetaminophen Tab [Tylenol] 500 mg PO Q6HR PRN PRN Reason: Pain Heparin 10units/Ml 30 units IV BID@0500,1700 Warfarin [Coumadin] 3 mg PO DAILY@1700 Vancomycin HCl in 5 % Dextrose [Vancomycin 1.25 Gram/250Ml-D5w] 1.25 gm IV DAILY@0500 Multivitamins, Thera [Multivitamin (formulary)] 1 tab PO DAILY Bumetanide [BUMEX] 1 mg PO DAILY Atorvastatin [Lipitor] 20 mg PO HS Insulin Lispro [Insulin Lispro Kwikpen U-100] See Protocol SQ ACHS Insulin Lispro [Insulin Lispro Kwikpen U-100] 12 unit SQ PC-TID Metoprolol Succinate (ER) [Toprol XL] 75 mg PO BID@0700,1900 metFORMIN HCL [Glucophage] 500 mg PO BID Miconazole Nitrate [Lotrimin AF Powder] 1 applic TOPICAL BID Omeprazole [PriLOSEC] 20 mg PO DAILY Normal Saline Flush 0.9% 5 ml IV QID Insulin Glargine,Hum.rec.anlog [Lantus Solostar Pen] 22 units SQ DAILY Tamsulosin HCl [Flomax] 0.4 mg PO DAILY Empagliflozin [Jardiance] 10 mg PO DAILY Discontinued Ertapenem [INVanz] 1 gm IVPB DAILY@1700 Discharge Medication List Diltiazem Cd [Cardizem CD] 180 mg PO QAM 02/09/17 [History] Aspirin 81 mg PO DAILY #90 chew 07/05/18 [Rx] Acetaminophen Tab [Tylenol] 500 mg PO Q6HR PRN 08/19/24 [History] Ammonium Lactate Lotion [Lac-Hydrin 12% Lotion] 1 applic TOPICAL HS 08/19/24 [History] Atorvastatin [Lipitor] 20 mg PO HS 08/19/24 [History] Bumetanide [BUMEX] 1 mg PO DAILY 08/19/24 [History] Empagliflozin [Jardiance] 10 mg PO DAILY 08/19/24 [History] Heparin 10units/Ml 30 units IV BID@0500,1700 08/19/24 [History] Insulin Glargine,Hum.rec.anlog [Lantus Solostar Pen] 22 units SQ DAILY 08/19/24 [History] Insulin Lispro [Insulin Lispro Kwikpen U-100] 12 unit SQ PC-TID 08/19/24 [History] Insulin Lispro [Insulin Lispro Kwikpen U-100] See Protocol SQ ACHS 08/19/24 [History] Metoprolol Succinate (ER) [Toprol XL] 75 mg PO BID@0700,1900 08/19/24 [History] Miconazole Nitrate [Lotrimin AF Powder] 1 applic TOPICAL BID 08/19/24 [History] Multivitamins, Thera [Multivitamin (formulary)] 1 tab PO DAILY 08/19/24 [History] Normal Saline Flush 0.9% 5 ml IV QID 08/19/24 [History] Omeprazole [PriLOSEC] 20 mg PO DAILY 08/19/24 [History] Tamsulosin HCl [Flomax] 0.4 mg PO DAILY 08/19/24 [History] Vancomycin HCl in 5 % Dextrose [Vancomycin 1.25 Gram/250Ml-D5w] 1.25 gm IV DAILY@0500 08/19/24 [History] Warfarin [Coumadin] 3 mg PO DAILY@1700 08/19/24 [History] metFORMIN HCL [Glucophage] 500 mg PO BID 08/19/24 [History] Ceftolozane/Tazobactam [Zerbaxa 1.5 Gram Vial] 3 gm IV Q8H 35 Days #105 each 08/26/24 [Rx] Fluconazole [Diflucan] 100 mg PO DAILY #7 tab 08/26/24 [Rx] HYDROcodone/APAP 5-325MG [[place] 5-325] 1 each PO Q6HR PRN #8 tab 08/26/24 [Rx] Lactulose [Cephulac] 20 gm PO BID PRN ml 08/26/24 [Rx] Vancomycin 1,500 mg IVPB Q24HR 35 Days each 08/26/24 [Rx] Follow up Appointment(s)/Referral(s): Bacilio Fields MD [Medical Doctor] - 1-2 days Keaton Valadez MD [STAFF PHYSICIAN] - 1 Week Ambulatory/Diagnostic Orders: C Reactive Protein [LAB.AMB] Location: None Selected Comprehensive Metabolic Panel [LAB.AMB] Location: None Selected Erythrocyte Sedimentation Rate [LAB.AMB] Location: None Selected Complete Blood Count w/diff [LAB.AMB] Time Frame: 3 Days, Location: None Selected Activity/Diet/Wound Care/Special Instructions: Continue IV vancomycin pharmacy to dose for 5 weeks of antibiotic therapy Continue IV zerbaxa Q8h for 5 weeks total of antibiotic therapy Blood work weekly x 5 weeks Wound Care Left hip: Apply honey gel and border foam Change Monday Sacrum: NPWT at 150 mm/hg contiuous pressure with black foam. Wound Vac to Sacrum pressure ulcer Continuous 125mmHg Medium intensity. Black granufoam. If issues with wound vac or until reapplied; [facility] wet to dry dressing on the sacrum and change Mon. Patient needs close follow up with either [place] care [place] [facility] OR follow up at [facility] for further recommendations and monitoring To the Ankle apply Medihoney with optifoam and change monday or as needed if dressing is soiled Continue with indwelling wilder catheter Discharge Disposition: TRANSFER TO SNF/ECF
[2024-08-26 09:32] LABS: Basophils # (A) 0.04 X 10*3/uL (0.00-0.10); Basophils % (A) 0.7 %; Eosinophils # (A) 0.59 X 10*3/uL (0.04-0.35); HCT 29.5 % (39.6-50.0); Lymphocytes # (A) 0.58 X 10*3/uL (0.90-5.00); Lymphocytes % (A) 9.8 %; MCHC 30.5 g/dL (32.0-37.0); MCV 88.6 FL (80.0-97.0); Mean Platelet Volume 11.1 FL (9.5-12.2); Monocytes # (A) 0.72 X 10*3/uL (0.20-1.00); Monocytes % (A) 12.2 %; NRBC Per 100 WBC 0 X 10*3/uL (0.00-0.01); Neutrophils # (A) 3.98 X 10*3/uL (1.80-7.70); Neutrophils % (A) 67.1 %; Platelet Count 243 X 10*3/uL (140-440); RBC 3.33 X 10*6/uL (4.40-5.60); RDW 17.2 % (11.5-14.5); WBC 5.92 X 10*3/uL (4.50-10.00)
[2024-08-26] MEDS: POTASSIUM CHLORIDE ER 20 MEQ TAB.ER PO SCH (10:32)
[2024-08-26] MEDS: MAGNESIUM SULFATE-D5W PMX 1 GM in DEXTROSE/WATER 1 100ML.BAG IVPB ONE (11:06)
[2024-08-26 12:35] LABS: Glucose,Whole Blood 304 mg/dL (70-110)
[2024-08-26] MEDS: CIPROFLOXACIN 0.3% OPHTH SOLN 5 ML BTL BOTH EYES SCH (13:16)
[2024-08-26 17:20] LABS: Glucose,Whole Blood 352 mg/dL (70-110)
[2024-08-26] MEDS: WARFARIN 3 MG TAB PO ONE (17:42)
[2024-08-26 20:13] LABS: Glucose,Whole Blood 278 mg/dL (70-110)
[2024-08-27 06:13] LABS: INR 3.6 (<1.2); Prothrombin Time 35.2 sec (10.0-12.5)
[2024-08-27 07:37] LABS: Glucose,Whole Blood 284 mg/dL (70-110)
[2024-08-27] MEDS: DILTIAZEM ORAL 60 MG TAB PO SCH (09:50)
[2024-08-27 12:21] LABS: Glucose,Whole Blood 497 mg/dL (70-110)
[2024-08-27] MEDS: INSULIN ASPART (NovoLOG) 100 UNIT/ML VIAL SQ SCH (12:48)
[2024-08-27 17:10] LABS: Glucose,Whole Blood 293 mg/dL (70-110)
--- NOTE | 2024-08-27 17:31 | P.PN ---
Subjective Progress Note Date: 08/27/24 This is a pleasant 79-year-old male who presented to the emergency department from [facility] with concerns of altered mental status, possible UTI. Per daughter at the bedside patient had been recently at [facility] and discharged New Year's Jacquelyn to [facility] for continued PT/OT therapy with a PICC line and IV antibiotics along with wound care for extensive ongoing sacral decubitus ulcer with osteomyelitis. Per daughter at the bedside patient had become altered and talking "loopy" and reports when he becomes altered it is usually from a urinary tract infection and called for EMS to take him to the hospital. CT brain was done showing no acute process, labs reviewed with no w clayton count, afebrile, hemoglobin is 10.6, INR 2.2 as patient is on Coumadin and kidney functions within normal limits other than mildly elevated blood sugar. Patient primary care provider Dr. 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 Daughter at the bedside reports she does not want her father to return to [facility] on discharge. Social work will be consulted. Patient admitted for altered mental status with concerns of UTI and ongoing decubitus ulcer. Infectious disease consulted. 08/21/2024 Patient is seen in follow-up this morning and mentation is much improved per family at the bedside. 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 Shae moses does follow with Dr. Valverde at the wound care center outpatient. Patient is maintained on vancomycin with infectious disease following with concerns of infection at the decubitus ulcer site and there were concerns of possible urinary tract infection, Jones associated as patient has a chronic Jones on admission. Patient did have indwelling Jones catheter exchanged in the ER and family at the bedside reports he has been having an indwelling Jones catheter for the last few months. Patient is afebrile with no reports of chest pain or shortness of breath. Patient was able to have a large bowel movement and there is stool noted in the ostomy along with gas. Awaiting cultures and further recommendations from infectious disease regarding discharge planning. Patient also due to insurance coverage will need ECF for IV antibiotic therapy. Case management is following regarding this. 08/22/2024 Patient is seen in follow-up today with no overnight issues noted. Cultures of the sacrum are showing MRSA and CT scan was done positive for osteomyelitis. Patient does currently have a PICC line and is maintained on antibiotics with infectious disease following. Wound care consulted and will continue current wound care regimen. Case management/social work also following as patient will require IV antibiotics on discharge and has no insurance coverage for antibiotics in the home and looking into possibly [facility]. Urine cultures finalizing with Melissa and patient is maintained on Diflucan. Patient does have a chronic Jones which was exchanged in the ER. 08/23/2024 Patient is seen and evaluated in follow-up with infectious disease and wound care following. Patient does have wound VAC that has been reapplied and maintained on local wound care of the sacral region along with left hip and left lower extremity for ongoing wounds. Patient continues with chronic indwelling Jones catheter and is maintained on IV Lasix daily as patient normally takes Bumex although was noted to have some congestion on imaging. Will continue with the Lasix and transition back to Bumex on discharge. Follow-up and monitor kidney functions. Patient is afebrile currently sitting up eating on room air and reporting he wants to go home. Patient is extremely hard of hearing and family is at bedside. Patient does have an ostomy and continues to have stool output with no reports of abdominal pain or discomfort. Awaiting finalized cultures as some of the wound cultures are now showing Pseudomonas and awaiting sensitivities to discuss further with infectious disease regarding discharge p po. Patient does have a PICC line as patient was continued on Invanz most recently for osteomyelitis of the sacrum. Being transitioned to meropenem along with Flagyl and Diflucan as urine culture finalized with Melissa. Patient was at [facility] although refusing to go back and has been accepted at [facility] and again just awaiting finalized cultures to determine discharge antibiotics. 08/24/2024 Patient evaluated in follow up on the medical floor. Wound vac in place. Jones catheter in place. Wound culture not final yet waiting on sensitivites for the third organism. Because of this not cleared yet for DC by infectious disease and now discharge will be postponed until monday. Continues on IV zerbaxa, IV vancomycin. 08/25/2024 Patient is evaluated today in follow-up on the medical floor. Kaleva was given and patient reports improvement in his pain control as family does want to avoid IV pain medications as they feel the patient gets increasingly drowsy with this. All final cultures are back and patient has been started on IV Zerbaxa and continues on IV vancomycin with infectious disease following closely. Patient is no acute complaints at this time. He is making stool from the ostomy. Urine output is adequate indwelling Jones catheter remains in place. He is reporting no acute complaints, no chest pain or shortness of breath. INR of 2.3. The bedside had felt that patient had worsening mentation and was altered however patient appears to be alert and oriented and baseline today on evaluation at the bedside. A urinalysis was repeated and near normal with the only abnormality of 3+ glucose. Patient remains on IV Lasix daily. 08/27/2024 Patient evaluated in follow up. Resting comfortably. Making stool from the ostomy. Continue with cipro eye gtts. [facility] in the next 24 hours. Blood glucose elevated 300-400s. Will be resumed on his scheduling insulin. Review of systems: Constitutional: No reports of fatigue, fever, or chills Cardiovascular: No reports of chest pain or palpitations Respiratory: No reports of shortness of breath or cough GI: No reports of nausea, vomiting, or diarrhea : No reports of dysuria or retention Neurovascular:reports of chronic generalized weakness All medications have been reviewed PHYSICAL EXAMINATION: GENERAL: The patient is awake, alert and oriented x 23, extremely hard of hearing, not in any acute distress. Well developed, elderly appearing HEENT: Pupils are round and equally reacting to light. EOMI. No scleral icterus. No conjunctival pallor. Normocephalic, atraumatic. No pharyngeal erythema. No thyromegaly. CARDIOVASCULAR: S1 and S2 muffled PULMONARY: Diminished breath sounds bilaterally otherwise some bronchial congestion noted but patient clears easily, no wheezing or crackles appreciated. ABDOMEN: Soft, nontender, nondistended, normoactive bowel sounds. No palpable organomegaly. Left side ostomy noted with stool and gas MUSCULOSKELETAL: No joint swelling or deformity. EXTREMITIES: No cyanosis, clubbing, or pedal edema. Left hand amputation noted NEUROLOGICAL: Gross neurological examination did not reveal any focal deficits. Diffusely weak SKIN: No rashes. Pale, wounds noted in HPI of the sacrum, left hip, and left lower extremity Assessment: Altered mental status, acute metabolic encephalopathy, possibly secondary to sacral wounds, improved History of extensive stage IV sacral wound, present on admission and had wound VAC previously, currently maintained on a PICC line and IV antibiotics from last week discharge, culture showing MRSA and CT scan is positive for osteomyelitis. Other preliminary cultures now showing Pseudomonas as well and awaiting finalized cultures Left hip unstageable ulcer, present on admission Bacterial conjunctivits Left lateral ankle pressure ulcer, present on admission Concerns for possible acute urinary tract infection, present on admission, patient does have chronic indwelling Jones catheter for retention, suspicion is low and likely asymptomatic bacteriuria as patient denies having pain, burning, or frequency with urination, culture showing Melissa Diabetes mellitus, type II, uncontrolled with hyperglycemia, insulin-dependent Hyperlipidemia history Hypertension history History of atrial fibrillation, maintained on Coumadin History of neuropathy 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 Patient's Jones catheter was exchanged in the ER on admission. Repeat urine culture showing Melissa, suspicion for UTI is low, likely asymptomatic bacteriuria Wound care evaluated and patient is maintained on wound VAC and continued wound care recommend Accu-Cheks before meals and at bedtime and will continue long-acting along with sliding scale and adjust accordingly. Resumed on scheduled insulin with levemir at HS added for improved glycemic control. Continue offloading and frequent position changes every 2 hours, family requesting pressure reduction mattress at the [facility]. Patient is having bowel movements, will continue bowel regimen as needed follow-up with repeat labs Continue cipro eye gtts. Patient does take Bumex daily and was on hold from admission with kidney functions improving. Patient with some slight bronchial congestion, IV fluids discontinued and will continue daily Lasix while hospitalized. Will resume Bumex on discharge Case management/social work consult for discharge planning. Apparently his insurance does not cover in-home antibiotics and will require IV antibiotic on discharge and ECF[facility] with the IV zerbaxa and plan is for DC in the next 24 hours. The impression and plan of care has been dictated by Kayla Moy, Nurse Practitioner as directed. Dr. Missael MD I have performed a history and physical examination and medical decision making of this patient, discussed the same with the dictator, and agree with the dictators assessment and plan as written, documented as a scribe. Based on total visit time, I have performed more than 50% of this visit. Objective - Vital Signs Vital signs: Vital Signs Temp 98.1 F 08/27/24 11:50 Pulse 92 08/27/24 11:50 Resp 16 08/27/24 11:50 BP 129/80 08/27/24 11:50 Pulse Ox 98 08/27/24 11:50 FiO2 Intake & Output 08/26/24 08/27/24 08/27/24 18:59 06:59 18:59 Intake Total 237 Output Total 2200 400 2100 Balance -1963 -400 -2100 Intake: Oral 237 Output: Urine 2200 400 2100 Other: Voiding Method Indwelling Catheter Indwelling Catheter Indwelling Catheter # Bowel Movements 1 1 - Labs CBC & Chem 7: 08/26/24 04:47 08/26/24 04:47 Labs: Abnormal Lab Results - Last 24 Hours (Table) 08/26/24 08/27/24 08/27/24 Range/Units 20:11 05:40 07:35 PT 35.2 H (10.0-12.5) sec INR 3.6 H (<1.2) POC Glucose (mg/dL) 278 H 284 H (70-110) mg/dL 08/27/24 08/27/24 Range/Units 12:07 17:08 PT (10.0-12.5) sec INR (<1.2) POC Glucose (mg/dL) 497 H 293 H (70-110) mg/dL Microbiology - Last 24 Hours (Table) 08/20/24 11:42 Gram Stain - Final Buttock Wound Culture - Final Methicillin resist S. aureus Acinetobacter milton/haemol Pseudomonas aeruginosa Assessment and Plan Time with Patient: Less than 30
[2024-08-27] MEDS: WARFARIN 0.5 MG TAB PO ONE (18:00)
[2024-08-27] MEDS: MAGNESIUM SULFATE-D5W PMX 1 GM in DEXTROSE/WATER 1 100ML.BAG IVPB ONE (18:04)
--- NOTE | 2024-08-27 18:26 | CDI ---
Documentation Clarification Form Date: 08/27/2024 06:01:35 PM From: Yaa Montoya RN, CCDS Phone: [phone] Admit Date: 08/21/2024 12:13:00 PM Patient Name: Bacilio Cotton Visit Number: [id number] Discharge Date: ATTENTION: The Clinical Documentation Specialists (CDI) and [facility] Coding Staff appreciate your assistance in clarifying documentation. Please respond to the clarification below the line at the bottom and electronically sign. The CDI & [facility] Coding staff will review the response and follow-up if needed. Please note: Queries are made part of the Legal Health Record. If you have any questions, please contact the author of this message via ITS. DoctorPedro Canas Conflicting documentation has been found in the medical record. As attending physician, please provide clarification. H/P and subsequent documentation Possible acute urinary tract infection, present on admission patient does have chronic indwelling Jones catheter for retention suspicion is low and likely asymptomatic bacteriuria as patient denies having pain, burning or frequency with urination, culture showing Melissa 08/25 ID: Catheter-associated urinary tract infection Patient did have a repeat UA that was negative. History/Risk Factors: Atrial Fibrillation, Cancer, CVA/TIA, Diabetes Mellitus, GI Bleed, Hyperlipidemia, Hypertension, Clinical Indicators:79-year-old presenting with decreased responsiveness. Patient does have indwelling Jones catheter with recurrent urinary tract. She has altered mental status, confusion, decreased responsiveness, weakness. She also has a sacral pressure ulcer. 130/77 106 18 97.6 97 WBC 6.9 HGB 10.6 BUN 30 UA LG UE Treatment: Vancomycin PTD Ertapenem 1 GM IVPB Daily Cefepime HCl 2GM IVPB 08/21 Please clarify which diagnosis is most appropriate: [ x ] Catheter associated UTI POA [ ] Catheter associated UTI Ruled out [ ] Other (please specify) [ ] Unable to determine (Template Last Revised: October 2020) MTDD
[2024-08-27 20:20] LABS: Glucose,Whole Blood 170 mg/dL (70-110)
[2024-08-27] MEDS: DOXYCYCLINE 100 MG CAP PO SCH (20:53)
[2024-08-27] MEDS: INSULIN DETEMIR (LEVEMIR) 100 UNIT/ML SYR SQ SCH (20:55)
[2024-08-28 01:47] LABS: Glucose,Whole Blood 115 mg/dL (70-110)
[2024-08-28 04:01] LABS: INR 3.7 (<1.2); Prothrombin Time 36.6 sec (10.0-12.5)
[2024-08-28 07:41] LABS: Glucose,Whole Blood 94 mg/dL (70-110)
--- NOTE | 2024-08-28 07:54 | P.PN ---
Subjective Progress Note Date: 08/26/24 Principal diagnosis: Reason for follow-up is a sacral osteomyelitis and UTI Patient is a 79-year-old male with a past medical history significant for hypertension hyperlipidemia type 2 diabetes mellitus CVA TIA atrial fibrillation has been in the hospital and has developed sacral pressure ulcer and was diagnosed with an osteomyelitis at [facility] but no culture were done now presenting to this facility with mental status change concerning for worsening sacral pressure ulcer and possible UTI. On today's evaluation that is 08/26/2023, patient has been afebrile, patient is breathing comfortably and is currently on 2 L nasal cannula oxygen, patient d enies having any significant cough no chest pain, patient denies nausea vomiting or diarrhea and no abdominal pain Patient white count is 5.92 creatinine 0.84 Objective - Vital Signs Vital signs: Vital Signs Temp 97.8 F 08/26/24 12:17 Pulse 77 08/26/24 12:17 Resp 16 08/26/24 12:17 BP 115/73 08/26/24 12:17 Pulse Ox 99 08/26/24 12:17 FiO2 Intake & Output 08/25/24 08/26/24 08/26/24 18:59 06:59 18:59 Intake Total 236 Output Total 2100 300 Balance -1864 -300 Intake: Oral 236 Output: Urine 2100 300 Other: Voiding Method Indwelling Catheter Indwelling Catheter # Bowel Movements 1 - Exam GENERAL DESCRIPTION: An elderly male lying in bed in no distress RESPIRATORY SYSTEM: Unlabored breathing , decreased breath sounds at bases HEART: S1 S2 regular rate and rhythm , ABDOMEN: Soft , no tenderness EXTREMITIES: No edema feet - Labs CBC & Chem 7: 08/26/24 04:47 08/26/24 04:47 Labs: Abnormal Lab Results - Last 24 Hours (Table) 08/25/24 08/25/24 08/26/24 Range/Units 17:19 20:19 04:47 RBC (4.40-5.60) X 10*6/uL Hgb (13.0-17.0) g/dL Hct (39.6-50.0) % MCHC (32.0-37.0) g/dL RDW (11.5-14.5) % Lymphocytes # (0.90-5.00) X 10*3/uL Eosinophils # (0.04-0.35) X 10*3/uL PT (10.0-12.5) sec INR (<1.2) Potassium 3.1 L (3.5-5.1) mmol/L Carbon Dioxide 32 H (22-30) mmol/L BUN 33 H (9-20) mg/dL Glucose 174 H (74-99) mg/dL POC Glucose (mg/dL) 209 H 241 H (70-110) mg/dL Calcium 8.1 L (8.4-10.2) mg/dL 08/26/24 08/26/24 08/26/24 Range/Units 04:47 04:47 07:17 RBC 3.33 L (4.40-5.60) X 10*6/uL Hgb 9.0 L (13.0-17.0) g/dL Hct 29.5 L (39.6-50.0) % MCHC 30.5 L (32.0-37.0) g/dL RDW 17.2 H (11.5-14.5) % Lymphocytes # 0.58 L (0.90-5.00) X 10*3/uL Eosinophils # 0.59 H (0.04-0.35) X 10*3/uL PT 25.9 H (10.0-12.5) sec INR 2.6 H (<1.2) Potassium (3.5-5.1) mmol/L Carbon Dioxide (22-30) mmol/L BUN (9-20) mg/dL Glucose (74-99) mg/dL POC Glucose (mg/dL) 209 H (70-110) mg/dL Calcium (8.4-10.2) mg/dL 08/26/24 Range/Units 12:18 RBC (4.40-5.60) X 10*6/uL Hgb (13.0-17.0) g/dL Hct (39.6-50.0) % MCHC (32.0-37.0) g/dL RDW (11.5-14.5) % Lymphocytes # (0.90-5.00) X 10*3/uL Eosinophils # (0.04-0.35) X 10*3/uL PT (10.0-12.5) sec INR (<1.2) Potassium (3.5-5.1) mmol/L Carbon Dioxide (22-30) mmol/L BUN (9-20) mg/dL Glucose (74-99) mg/dL POC Glucose (mg/dL) 304 H (70-110) mg/dL Calcium (8.4-10.2) mg/dL Assessment and Plan (1) Stage IV pressure ulcer of sacral region Current Visit: Yes Status: Acute Code(s): L89.154 - PRESSURE ULCER OF SACRAL REGION, STAGE 4 SNOMED Code(s): 66552076437846 (2) Catheter-associated urinary tract infection Current Visit: Yes Status: Acute Code(s): T83.511A - I/I REACT D/T INDWELLING URETHRAL CATHETER, INIT; N39.0 - URINARY TRACT INFECTION, SITE NOT SPECIFIED SNOMED Code(s): 049033416 Plan: 1patient presented hospital mental status changes source is multifactorial in this patient who was noticed to have a significant cloudy purulent urine positive UA and concerning for catheter associated UTI patient also have a stage IV sacral pressure ulcer with wound palpable and clinically source of this infection 2-local sacral culture currently growing MRSA, drug-resistant Acinetobacter and Pseudomonas which is intermediate sensitive to meropenem sensitive to Zerbaxa, confirmed with the micro lab 3-patient currently being treated vancomycin along with Zerbaxa 3 g every 8 hours, will need for another 5 weeks to finish course of therapy, discussed with BASKET PERSON for admitting team Dictation was produced using [employer] dictation software. please excuse any grammatical, word or spelling errors. Time with Patient: Less than 30
--- NOTE | 2024-08-28 07:55 | P.PN ---
Subjective Progress Note Date: 08/27/24 Principal diagnosis: Reason for follow-up is a sacral osteomyelitis and UTI Patient is a 79-year-old male with a past medical history significant for hypertension hyperlipidemia type 2 diabetes mellitus CVA TIA atrial fibrillation has been in the hospital and has developed sacral pressure ulcer and was diagnosed with an osteomyelitis at [facility] but no culture were done now presenting to this facility with mental status change concerning for worsening sacral pressure ulcer and possible UTI. On today's evaluation that is 08/27/2023, Patient is afebrile this morning patient denies having any chest pain shortness of breath or cough, the patient is currently on room air, patient denies any abdominal pain no diarrhea no nausea no vomiting. Patient did have INR of 3.7 no CBC was done today Objective - Vital Signs Vital signs: Vital Signs Temp 98.6 F 08/27/24 07:30 Pulse 92 08/27/24 07:30 Resp 16 08/27/24 07:30 BP 122/67 08/27/24 07:30 Pulse Ox 99 08/27/24 07:30 FiO2 Intake & Output 08/26/24 08/27/24 08/27/24 18:59 06:59 18:59 Intake Total 237 Output Total 2200 400 2100 Balance -[id number] Intake: Oral 237 Output: Urine 0 400 2100 Other: Voiding Method Indwelling Catheter Indwelling Catheter Indwelling Catheter # Bowel Movements 1 - Exam GENERAL DESCRIPTION: An elderly male lying in bed in no distress RESPIRATORY SYSTEM: Unlabored breathing , decreased breath sounds at bases HEART: S1 S2 regular rate and rhythm , ABDOMEN: Soft , no tenderness EXTREMITIES: No edema feet - Labs CBC & Chem 7: 08/26/24 04:47 08/26/24 04:47 Labs: Abnormal Lab Results - Last 24 Hours (Table) 08/26/24 08/26/24 08/27/24 Range/Units 17:10 20:11 05:40 PT 35.2 H (10.0-12.5) sec INR 3.6 H (<1.2) POC Glucose (mg/dL) 352 H 278 H (70-110) mg/dL 08/27/24 08/27/24 Range/Units 07:35 12:07 PT (10.0-12.5) sec INR (<1.2) POC Glucose (mg/dL) 284 H 497 H (70-110) mg/dL Microbiology - Last 24 Hours (Table) 08/20/24 11:42 Gram Stain - Final Buttock Wound Culture - Final Methicillin resist S. aureus Acinetobacter milton/haemol Pseudomonas aeruginosa Assessment and Plan (1) Stage IV pressure ulcer of sacral region Current Visit: Yes Status: Acute Code(s): L89.154 - PRESSURE ULCER OF SACRAL REGION, STAGE 4 SNOMED Code(s): 76746786948861 (2) Catheter-associated urinary tract infection Current Visit: Yes Status: Acute Code(s): T83.511A - I/I REACT D/T INDW ELLING URETHRAL CATHETER, INIT; N39.0 - URINARY TRACT INFECTION, SITE NOT SPECIFIED SNOMED Code(s): 140187277 Plan: 1patient presented hospital mental status changes source is multifactorial in this patient who was noticed to have a significant cloudy purulent urine positive UA and concerning for catheter associated UTI patient also have a stage IV sacral pressure ulcer with wound palpable and clinically source of this infection 2-local sacral culture currently growing MRSA, drug-resistant Acinetobacter and Pseudomonas which is intermediate sensitive to meropenem sensitive to Zerbaxa, confirmed with the micro lab 3-patient currently being treated vancomycin along with Zerbaxa 3 g every 8 hours, we will add doxycycline to cover for the Acinetobacter, as no other option confirm with the micro lab Dictation was produced using [employer] dictation software. please excuse any grammatical, word or spelling errors. Time with Patient: Less than 30
[2024-08-28 08:29] VITALS: BP 136/77; PULSE 85; RESP 19; TEMP 97.8
--- NOTE | 2024-08-28 09:27 | P.DS ---
Providers Date of admission: 08/21/24 12:13 Attending physician: Bushra Morrissey Consults: 08/19/24 18:21 Consult Physician Routine Consulting Provider: Keaton Valadez Consult Reason/Comments: uti,ulcer Do you want consulting provider notified?: Yes Primary care physician: [facility] Course: Final Diagnosis Altered mental status, acute metabolic encephalopathy, possibly secondary to sacral wounds, improved History of extensive stage IV sacral wound, present on admission and had wound VAC previously, currently maintained on a PICC line and IV antibiotics from last week discharge, culture showing MRSA and CT scan is positive for osteomyelitis. Other preliminary cultures now showing Pseudomonas as well and awaiting finalized cultures Left hip unstageable ulcer, present on admission Left lateral ankle pressure ulcer, present on admission Concerns for possible acute urinary tract infection, present on admission, patient does have chronic indwelling Wilder catheter for retention, suspicion is low and likely asymptomatic bacteriuria as patient denies having pain, burning, or frequency with urination, culture showing Eliseo Diabetes mellitus, type II, uncontrolled with hyperglycemia, insulin-dependent Hyperlipidemia history Hypertension history History of atrial fibrillation, maintained on Coumadin History of neuropathy 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 and discharged to [facility] on 08/13/2024 with IV PICC line and antibiotics for a 6-week course Peripheral artery disease history History of CVA/TIA Discharge Disposition Stable for discharge to the ECF. Patient will continue on IV antibiotics through the PICC line for the next 5 weeks. Patient will continue with IV Zerb axa and IV vancomycin as recommended. Local wound care as described. Repeat blood work weekly patient will require close follow-up with Dr. Valadez and the wound care center on discharge. Continue IV vancomycin pharmacy to dose for 5 weeks of antibiotic therapy Continue IV zerbaxa Q8h for 5 weeks total of antibiotic therapy Blood work weekly x 5 weeks Wound Care Left hip: Apply honey gel and border foam Change Monday Sacrum: NPWT at 150 mm/hg contiuous pressure with black foam. Wound Vac to Sacrum pressure ulcer Continuous 125mmHg Medium intensity. Black granufoam. If issues with wound vac or until reapplied; use medihoney with wet to dry dressing on the sacrum and change Mon. Patient needs close follow up with either wound care at the senior care OR follow up at [facility] for further recommendations and monitoring To the Ankle apply [facility] with optifoam and change monday or as needed if dressing is soiled Continue with indwelling wilder catheter Hospital Course This is a pleasant 79-year-old male who presented to the emergency department from [facility] with concerns of altered mental status, possible UTI. Per daughter at the bedside patient had been recently at [facility] and discharged New 's Jacquelyn to [facility] for continued PT/OT therapy with a PICC line and IV antibiotics along with wound care for extensive ongoing sacral decubitus ulcer with osteomyelitis. Per daughter at the bedside patient had become altered and talking "loopy" and reports when he becomes altered it is usually from a urinary tract infection and called for EMS to take him to the hospital. CT brain was done showing no acute process, labs reviewed with no white count, afebrile, hemoglobin is 10.6, INR 2.2 as patient is on Coumadin and kidney functions within normal limits other than mildly elevated blood sugar. Patient primary care provider Dr. 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 Daughter at the bedside reports she does not want her father to return to [facility] on discharge. Social work will be consulted. Patient admitted for altered mental status with concerns of UTI and ongoing decubitus ulcer. Infectious disease consulted. Patient does follow with Dr. Valverde at the wound care center outpatient. Patient is maintained on vancomycin with infectious disease following with concerns of infection at the decubitus ulcer site and there were concerns of possible urinary tract infection, Wilder associated as patient has a chronic Wilder on admission. Patient did have indwelling Wilder catheter exchanged in the ER and family at the bedside reports he has been having an indwelling Wilder catheter for the last few months. Patient is afebrile with no reports of chest pain or shortness of breath. Felicia ent was able to have a large bowel movement and there is stool noted in the ostomy along with gas. Cultures of the sacrum are showing MRSA and CT scan was done positive for osteomyelitis. Patient does currently have a PICC line and is maintained on antibiotics with infectious disease following. Wound care consulted and will continue current wound care regimen. Wound Vac reapplied to sacrum with recommendations to continue on discharge. Final wound cultures showing MRSA, acinetobacter and pseudomonas to the sacrum. Urine culture showing eliseo. Patient has no acute complaints and has been cleared for discharge to [facility] with 5 weeks of antibiotic therapy with Vancomycin and Zerbaxa. ID following closely. Please see medication reconciliation for a list of current medications. Thank you for allowing us to participate in the care of this patient. The impression and plan of care has been dictated by Kayla Moy, Nurse Practitioner as directed. Dr. Missael MD I have performed a history and physical examination and medical decision making of this patient, discussed the same with the dictator, and agree with the dictators assessment and plan as written, documented as a scribe. Based on total visit time, I have performed more than 50% of this visit. Patient Condition at Discharge: Fair Plan - Discharge Summary Discharge Rx Participant: Yes New Discharge Prescriptions: New Lactulose [Cephulac] 20 gm PO BID PRN ml PRN Reason: Constipation Fluconazole [Diflucan] 100 mg PO DAILY #7 tab Ceftolozane/Tazobactam [Zerbaxa 1.5 Gram Vial] 3 gm IV Q8H 35 Days #105 each HYDROcodone/APAP 5-325MG [[place] 5-325] 1 each PO Q6HR PRN #8 tab PRN Reason: Pain Vancomycin 1,500 mg IVPB Q24HR 35 Days each Ciprofloxacin Ophth Soln [Ciloxan 0.3% Ophth Soln] 1 drops BOTH EYES Q4HR 7 Days #2.5 ml Continue Diltiazem Cd [Cardizem CD] 180 mg PO QAM Aspirin 81 mg PO DAILY #90 chew Ammonium Lactate Lotion [Lac-Hydrin 12% Lotion] 1 applic TOPICAL HS Acetaminophen Tab [Tylenol] 500 mg PO Q6HR PRN PRN Reason: Pain Heparin 10units/Ml 30 units IV BID@0500,1700 Warfarin [Coumadin] 3 mg PO DAILY@1700 Vancomycin HCl in 5 % Dextrose [Vancomycin 1.25 Gram/250Ml-D5w] 1.25 gm IV DAILY@0500 Multivitamins, Thera [Multivitamin (formulary)] 1 tab PO DAILY Bumetanide [BUMEX] 1 mg PO DAILY Atorvastatin [Lipitor] 20 mg PO HS Insulin Lispro [Insulin Lispro Kwikpen U-100] See Protocol SQ ACHS Insulin Lispro [Insulin Lispro Kwikpen U-100] 12 unit SQ PC-TID Metoprolol Succinate (ER) [Toprol XL] 75 mg PO BID@0700,1900 metFORMIN HCL [Glucophage] 500 mg PO BID Miconazole Nitrate [Lotrimin AF Powder] 1 applic TOPICAL BID Omeprazole [PriLOSEC] 20 mg PO DAILY Normal Saline Flush 0.9% 5 ml IV QID Insulin Glargine,Hum.rec.anlog [Lantus Solostar Pen] 22 units SQ DAILY Tamsulosin HCl [Flomax] 0.4 mg PO DAILY Empagliflozin [Jardiance] 10 mg PO DAILY Discontinued Ertapenem [INVanz] 1 gm IVPB DAILY@1700 Discharge Medication List Diltiazem Cd [Cardizem CD] 180 mg PO QAM 02/09/17 [History] Aspirin 81 mg PO DAILY #90 chew 07/05/18 [Rx] Acetaminophen Tab [Tylenol] 500 mg PO Q6HR PRN 08/19/24 [History] Ammonium Lactate Lotion [Lac-Hydrin 12% Lotion] 1 applic TOPICAL HS 08/19/24 [History] Atorvastatin [Lipitor] 20 mg PO HS 08/19/24 [History] Bumetanide [BUMEX] 1 mg PO DAILY 08/19/24 [History] Empagliflozin [Jardiance] 10 mg PO DAILY 08/19/24 [History] Heparin 10units/Ml 30 units IV BID@0500,1700 08/19/24 [History] Insulin Glargine,Hum.rec.anlog [Lantus Solostar Pen] 22 units SQ DAILY 08/19/24 [History] Insulin Lispro [Insulin Lispro Kwikpen U-100] 12 unit SQ PC-TID 08/19/24 [History] Insulin Lispro [Insulin Lispro Kwikpen U-100] See Protocol SQ ACHS 08/19/24 [History] Metoprolol Succinate (ER) [Toprol XL] 75 mg PO BID@0700,1900 08/19/24 [History] Miconazole Nitrate [Lotrimin AF Powder] 1 applic TOPICAL BID 08/19/24 [History] Multivitamins, Thera [Multivitamin (formulary)] 1 tab PO DAILY 08/19/24 [History] Normal Saline Flush 0.9% 5 ml IV QID 08/19/24 [History] Omeprazole [PriLOSEC] 20 mg PO DAILY 08/19/24 [History] Tamsulosin HCl [Flomax] 0.4 mg PO DAILY 08/19/24 [History] Vancomycin HCl in 5 % Dextrose [Vancomycin 1.25 Gram/250Ml-D5w] 1.25 gm IV DAILY@0500 08/19/24 [History] Warfarin [Coumadin] 3 mg PO DAILY@1700 08/19/24 [History] metFORMIN HCL [Glucophage] 500 mg PO BID 08/19/24 [History] Ceftolozane/Tazobactam [Zerbaxa 1.5 Gram Vial] 3 gm IV Q8H 35 Days #105 each 08/26/24 [Rx] Ciprofloxacin Ophth Soln [Ciloxan 0.3% Ophth Soln] 1 drops BOTH EYES Q4HR 7 Days #2.5 ml 08/26/24 [Rx] Fluconazole [Diflucan] 100 mg PO DAILY #7 tab 08/26/24 [Rx] HYDROcodone/APAP 5-325MG [[place] 5-325] 1 each PO Q6HR PRN #8 tab 08/26/24 [Rx] Lactulose [Cephulac] 20 gm PO BID PRN ml 08/26/24 [Rx] Vancomycin 1,500 mg IVPB Q24HR 35 Days each 08/26/24 [Rx] Follow up Appointment(s)/Referral(s): Bacilio Fields MD [Medical Doctor] - 1-2 days Wound Center,[facility] [NON-STAFF] - 1 Week Keaton Valadez MD [STAFF PHYSICIAN] - 1 Week Nabeel Clement MD [STAFF PHYSICIAN] - 1 Week Ambulatory/Diagnostic Orders: C Reactive Protein [LAB.AMB] Location: None Selected Comprehensive Metabolic Panel [LAB.AMB] Location: None Selected Erythrocyte Sedimentation Rate [LAB.AMB] Location: None Selected Prothrombin Time INR [LAB.AMB] Time Frame: 3 Days, Location: None Selected Complete Blood Count w/diff [LAB.AMB] Time Frame: 3 Days, Location: None Selected Activity/Diet/Wound Care/Special Instructions: Continue IV vancomycin pharmacy to dose for 5 weeks of antibiotic therapy Continue IV zerbaxa Q8h for 5 weeks total of antibiotic therapy Blood work weekly x 5 weeks Wound Care Left hip: Apply honey gel and border foam Change Monday Sacrum: NPWT at 150 mm/hg contiuous pressure with black foam. Wound Vac to Sacrum pressure ulcer Continuous 125mmHg Medium intensity. Black granufoam. If issues with wound vac or until reapplied; use medihoney with wet to dry amada ssing on the sacrum and change Mon. Patient needs close follow up with either wound care at the senior care OR follow up at [facility] for further recommendations and monitoring To the Ankle apply Medihoney with optifoam and change monday or as needed if dressing is soiled Continue with indwelling wilder catheter Discharge Disposition: TRANSFER TO SNF/ECF
[2024-08-28 09:59] LABS: BUN/Creat Ratio 39.56 Ratio (12.00-20.00); Blood Urea Nitrogen 35.6 mg/dL (9.0-27.0); Carbon Dioxide 30.3 mmol/L (21.6-31.8); Chloride 103 mmol/L (96-109); Glucose 107 mg/dL (70-110); Potassium 3.9 mmol/L (3.5-5.5); Sodium 141 mmol/L (135-145)
[2024-08-28 12:10] LABS: Glucose,Whole Blood 291 mg/dL (70-110)
[2024-08-28] MEDS ORDERED: WARFARIN 0.5 MG TAB PO ONE (18:00)
[2024-08-29] MEDS ORDERED: VANCOMYCIN TROUGH DUE 1 EACH MISC MISCELLANE ONE (08:00)
== END 2024-08-28 12:48 | DRG 698 ==
LOC: EC 16:06 → 5NMEDONC 18:21 → OBSVTOIN 08-21 12:13
PROVIDERS: ADMIT Hospitalist; ATTEND Hospitalist
PROC: 0T2BX0Z Change Drainage Device in Bladder, External Approach (ICD-10-PCS; principal; 2024-08-19)
DX: T83.518A Infection and inflammatory reaction due to other urinary catheter, initial encounter (principal); G93.41 Metabolic encephalopathy; L89.154 Pressure ulcer of sacral region, stage 4; N39.0 Urinary tract infection, site not specified; M46.28 Osteomyelitis of vertebra, sacral and sacrococcygeal region; E11.69 Type 2 diabetes mellitus with other specified complication; B95.62 Methicillin resistant Staphylococcus aureus infection as the cause of diseases classified elsewhere; L89.529 Pressure ulcer of left ankle, unspecified stage; E11.65 Type 2 diabetes mellitus with hyperglycemia; E78.5 Hyperlipidemia, unspecified; N18.9 Chronic kidney disease, unspecified; I12.9 Hypertensive chronic kidney disease with stage 1 through stage 4 chronic kidney disease, or unspecified chronic kidney disease; I48.91 Unspecified atrial fibrillation; E11.51 Type 2 diabetes mellitus with diabetic peripheral angiopathy without gangrene; E11.40 Type 2 diabetes mellitus with diabetic neuropathy, unspecified; M19.90 Unspecified osteoarthritis, unspecified site; L89.222 Pressure ulcer of left hip, stage 2; E11.22 Type 2 diabetes mellitus with diabetic chronic kidney disease; H10.9 Unspecified conjunctivitis; Z86.73 Personal history of transient ischemic attack (TIA), and cerebral infarction without residual deficits; Z79.4 Long term (current) use of insulin; Z79.899 Other long term (current) drug therapy; Z79.84 Long term (current) use of oral hypoglycemic drugs; Z79.01 Long term (current) use of anticoagulants; Z79.82 Long term (current) use of aspirin; Z88.2 Allergy status to sulfonamides; Z87.440 Personal history of urinary (tract) infections; Z87.891 Personal history of nicotine dependence; Z89.511 Acquired absence of right leg below knee; Z93.3 Colostomy status
CPT/HCPCS: 36415; 70450; 71045; 72192; 74022; 80048; 80053; 80202; 80306; 80320; 81001; 81003; 82140; 82565; 83036; 83605; 83735; 84100; 84443; 84484; 85025; 85610; 85652; 85730; 86140; 87040; 87070; 87075; 87077; 87086; 87186; 87205; 87493; 93005; 94760; 96361; 96365; 96366; 99285